=== PATIENT | female | born 1935 | race Caucasian/White ===

== ENCOUNTER → 2016-10-15 | Outpatient (CLI) | payer MEDICARE ==
[2016-10-15 11:59] LABS: Blood Urea Nitrogen 21 mg/dL (7-17); Non-African American GFR(MDRD) >60 (>60 ml/min/1.73 sqM)
--- NOTE | 2016-10-15 18:18 | CT ---
EXAMINATION TYPE: CT ChestAbdPelvis w con DATE OF EXAM: 10/15/2016 12:35 PM INDICATION: Lymphoma follow up COMPARISON: PET/CT 07/20/2016 CT DLP: 1004.9 mGycm CONTRAST: Performed with Oral Contrast and with IV Contrast, patient injected with 100 ml mL of Omnipaque 300. TECHNIQUE: Axial images at 5 mm thick sections. Reconstructed images in the coronal plane. Delayed images through the kidneys. FINDINGS: CT CHEST: There appears to be some left supraclavicular adenopathy present measuring 1.0 cm. Small ax illary lymph node is present on the left. No enlarged mediastinal or hilar adenopathy is evident. Portion of the thyroid visualized is normal. Small bilateral pleural effusions are present. Some streak opacities within the lingula. Correlate fo r atelectasis. The ascending aorta diameter at the level of the main pulmonary artery is 3.4 cm. The main pulmonary artery diameter at the bifurcation is 2.6 cm. Coronary artery calcification is present. CT ABDOMEN: No retrocrural adenopathy is evident. No periaortic or retrocaval adenopathy is evident. Mesenteric adenopathy is not evident. Liver: Normal Spleen: Normal Pancreas: There is fatty infiltration in the pancreas. Adrenal glands: The adrenal glands are normal. Gallbladder: Not visualized. Kidneys: No masses are evident. No hydronephrosis is present. Multiple cysts are present. This incl udes an superior pole left renal cyst measuring 6.1 cm, a posterior cortical renal cyst measuring 1.8 cm. An inferior pole renal cyst measuring 6.0 cm. Right kidney contains a mid right renal cortical c yst measuring 2.0 cm. A punctate medial cortical renal cysts at the same level. Delayed images were obtained through the kidneys, which remain unremarkable. Aorta: Vascular calcification is within the aorta. Inferior vena cava: Normal. CT PELVIS: Loops of bowel within the abdomen and pelvis are normal. There are loops of bowel which are incom pletely distended or lack oral contrast limiting their evaluation. Appendix: Not visualized Urinary bladder: Normal. Genitourinary structures: Uterus is not identified. Adnexal regions are clear. Osseous structures: No suspicious lytic or sclerotic lesions. No suspicious inguinal adenopathy is evident. No intrapelvic suspicious adenopathy is evident. IMPRESSIONS: 1. Lymph node in the left supraclavicular region could correspond to the PET/CT findings. 2. No suspicious mediastinal adenopathy by CT criteria is not identified. Inguinal adenopathy corresp ond to the PET findings is not identified. 3. Small bilateral pleural effusions. 4. Renal cysts
== END | disposition home or self-care (01) ==
LOC: RADPROMAIN 10:58
PROVIDERS: ATTEND Internal Medicine Hematology & Oncology
DX: C85.90 Non-Hodgkin lymphoma, unspecified, unspecified site (principal); J90 Pleural effusion, not elsewhere classified; N28.1 Cyst of kidney, acquired
CPT/HCPCS: 82565; 84520; 71260; 74177; Q9967

== ENCOUNTER 2016-11-04 12:59 | Inpatient (IN) | payer MEDICARE ==
[2016-11-04] MEDS ORDERED: ASPIRIN 81 MG CHEW PO STA (13:35)
[2016-11-04] MEDS ORDERED: SODIUM CHLORIDE 0.9% 1,000 ML IV STA ×2 (13:35)
[2016-11-04] MEDS ORDERED: DILTIAZEM 125 MG in SODIUM CHLORIDE 0.9% 100 ML IV ONE (13:36)
[2016-11-04] MEDS ORDERED: DILTIAZEM 5 MG/ML 5 ML VIAL IVP STA (13:36)
--- NOTE | 2016-11-04 13:37 | ED ---
General Adult HPI - General Chief complaint: Arrhythmia/Palpitations Stated complaint: irreg heart rate Time Seen by Provider: 11/04/16 13:07 Source: RN/MD, EMS, RN notes reviewed, old records reviewed Mode of arrival: EMS Limitations: no limitations - History of Present Illness Initial comments: This is an 79-year-old female ER for evaluation. This patient presents today for evaluation of weakness. Patient has significant weakness, related to recent chemotherapy and cancer. Patient does and is found to be in A. fib with RVR, she does have a history she is and a blood thinner, Nick which she has not taken for 2 days. Patient denies any blood in her stool, no nausea vomiting of blood. No chest pain, mild shortness of breath and generally feeling weak. No recent fevers per patient's knowledge, patient is a transfer patient from [place] - Related Data Home Medications Medication Instructions Recorded Confirmed Atorvastatin [Lipitor] 20 mg PO DAILY 04/21/16 09/30/16 Cholecalciferol [Vitamin D3] 2,000 unit PO DAILY 04/21/16 09/30/16 Quinapril HCl [Accupril] 20 mg PO QAM 04/21/16 09/30/16 Loratadine 10 mg PO DAILY PRN 09/30/16 09/30/16 Prochlorperazine [Compazine] 10 mg PO Q6H PRN 09/30/16 09/30/16 Previous Rx's Medication Instructions Recorded Edoxaban Tosylate [Savaysa] 30 mg PO DAILY #60 tablet 04/24/16 ALPRAZolam [Xanax] 0.25 mg PO TID PRN #0 tab 10/04/16 Amiodarone [Cordarone] 200 mg PO BID #60 tab 10/04/16 Aspirin 81 mg PO DAILY chew 10/04/16 Metoprolol Tartrate [Lopressor] 50 mg PO BID #60 tab 10/04/16 Allergies Allergy/AdvReac Type Severity Reaction Status Date / Time No Known Allergies Allergy Verified 11/04/16 13:12 Review of Systems ROS Statement: Those systems with pertinent positive or pertinent negative responses have been documented in the HPI. ROS Other: All systems not noted in ROS Statement are negative. Past Medical History Past Medical History: Atrial Fibrillation, Hyperlipidemia, Hypertension Additional Past Medical History / Comment(s): states"swollen parotid gland on left side of face", Lymphoma History of Any Multi-Drug Resistant Organisms: None Reported Past Surgical History: Cholecystectomy, Hysterectomy Additional Past Surgical History / Comment(s): lt cataract Past Anesthesia/Blood Transfusion Reactions: No Reported Reaction Past Psychological History: No Psychological Hx Reported Smoking Status: Never smoker Past Alcohol Use History: Occasional Additional Past Alcohol Use History / Comment(s): Patient is a lifelong nonsmoker. She denies any medical marijuana, marijuana, street drug use. She drinks alcohol a beer occasionally. She lives alone and is very independent. There are no pets in the home. She worked in [employer] and has been retired for many years. Past Drug Use History: None Reported - Past Family History Mother History Unknown: Yes Family Medical History: Cancer Father Family Medical History: Myocardial Infarction ([place]) General Exam Limitations: no limitations General appearance: alert, lethargic, in distress, cachectic Head exam: Present: atraumatic, normocephalic, normal inspection Eye exam: Present: normal appearance, PERRL, EOMI. Absent: scleral icterus, conjunctival injection, periorbital swelling ENT exam: Present: mucous membranes dry, mucous membranes moist Neck exam: Present: normal inspection. Absent: tenderness, meningismus, lymphadenopathy Respiratory exam: Present: normal lung sounds bilaterally. Absent: respiratory distress, wheezes, rales, rhonchi, stridor Cardiovascular Exam: Present: tachycardia, irregular rhythm, normal heart sounds. Absent: systolic murmur, diastolic murmur, rubs, gallop, clicks GI/Abdominal exam: Present: soft, normal bowel sounds. Absent: distended, tenderness, guarding, rebound, rigid Extremities exam: Present: normal inspection, full ROM, normal capillary refill. Absent: tenderness, pedal edema, joint swelling, calf tenderness Back exam: Present: normal inspection Neurological exam: Present: alert, oriented X3, CN II-XII intact Psychiatric exam: Present: normal affect, normal mood Skin exam: Present: warm, dry, intact, normal color. Absent: rash Course Vital Signs 11/04/16 13:12 Pulse Rate 127 H Respiratory 18 Rate O2 Sat by Pulse 98 Oximetry - Reevaluation(s) Reevaluation #1: 11/04/16 13:52 Patient was significant critical improvement with rate control of heart Reevaluation #2: 11/04/16 13:54 Spoke with transferring physician from [place], records updated EKG Findings - EKG Comments: EKG Findings:: EKG shows A. fib with RVR at 149 QRS 66, QTc 412 Medical Decision Making - Medical Decision Making 81 female to ER for evaluation of weakness, patient currently going through chemotherapy for lymphoma, patient found to be in A. fib with RVR with new anemia secondary to chemo, patient with pancytopenia, will be admitted for monitoring control of A. fib with RVR and evaluation by oncologist as well as cardiology. - Radiology Data Radiology results: report reviewed (Chest x-ray negative for pneumonia), image reviewed Critical Care Time Critical Care Time: Yes Total Critical Care Time: 31 Disposition Clinical Impression: Atrial flutter with rapid ventricular response, Weakness, Anemia, Diffuse large B-cell lymphoma, Pancytopenia Disposition: ADMITTED IP TO THIS HOSP Condition: Fair Referrals: Uriel Brizuela MD [Primary Care Provider] - 1-2 days
[2016-11-04] MEDS ORDERED: MORPHINE SULFATE 4 MG/ML SYRINGE IV PRN (13:48)
[2016-11-04] MEDS ORDERED: NITROGLYCERIN SL TABS 0.4 MG TAB SUBLINGUAL PRN (13:48)
[2016-11-04] MEDS: SODIUM CHLORIDE 0.9% 1,000 ML IV SCH (13:55)
[2016-11-04] MEDS ORDERED: PIPERACILLIN-TAZOBACTAM 3.375 GM in DEXTROSE/WATER 1 50ML.BAG IVPB STA (15:28)
[2016-11-04] MEDS ORDERED: IV VANCOMYCIN PER PHARMACY 1 EACH MISC MISCELLANE PRN (15:29)
[2016-11-04] MEDS ORDERED: ACETAMINOPHEN IV (For NPO) 1,000 MG in EMPTY BAG 1 BAG IVPB STA (15:29)
[2016-11-04] MEDS ORDERED: SODIUM CHLORIDE 0.9% 1,000 ML IV ONE (15:29)
[2016-11-04] MEDS ORDERED: SODIUM CHLORIDE 0.9% 500 ML IV ONE ×2 (15:29→18:02)
[2016-11-04] MEDS ORDERED: ACETAMINOPHEN TAB 325 MG TAB PO PRN (15:32)
[2016-11-04] MEDS ORDERED: IBUPROFEN 600 MG TAB PO PRN (15:32)
[2016-11-04] MEDS ORDERED: METOPROLOL TARTRATE 5 MG/5 ML VIAL IVP STA (15:44)
--- NOTE | 2016-11-04 15:44 | XR ---
EXAMINATION TYPE: XR chest 1V portable DATE OF EXAM: 11/04/2016 3:40 PM HISTORY: Shortness of breath. COMPARISON: 09/30/2016 TECHNIQUE: Single view of the chest is submitted. FINDINGS: The Mediport catheter is unchanged in position. Demonstrated are scattered senescent parenchymal change. There is no evidence for focal infiltrate. The heart is stable. Hilar and mediastinal structures are within normal limits. Degenerative changes are seen of the dorsal spine. IMPRESSION: 1. Chronic changes without evidence for acute pulmonary disease.
[2016-11-04] MEDS ORDERED: VANCOMYCIN 1,500 MG in SODIUM CHLORIDE 0.9% 250 ML IVPB SCH (16:00)
[2016-11-04 16:42] LABS: Anion Gap 8 mmol/L; Blood Urea Nitrogen 28 mg/dL (7-17); Calcium 7.9 mg/dL (8.4-10.2); Carbon Dioxide 26 mmol/L (22-30); Chloride 104 mmol/L (98-107); Glucose 160 mg/dL (74-99); Non-African American GFR(MDRD) >60 (>60 ml/min/1.73 sqM); Potassium 3.8 mmol/L (3.5-5.1); Sodium 138 mmol/L (137-145)
[2016-11-04 16:50] LABS: Creatine Kinase <20 U/L (30-135)
[2016-11-04] MEDS ORDERED: LISINOPRIL 20 MG TAB PO SCH (17:00)
[2016-11-04] MEDS ORDERED: AMIODARONE 200 MG TAB PO SCH (17:00)
[2016-11-04] MEDS ORDERED: EDOXABAN TOSYLATE 30 MG TABLET PO SCH (17:00)
[2016-11-04 17:03] LABS: Creatine Kinase MB <0.2 ng/mL (0.0-2.4)
[2016-11-04] MEDS ORDERED: ALPRAZolam 0.25 MG TAB PO PRN (17:05)
[2016-11-04 17:31] LABS: Bilirubin, Delta 0.5 mg/dL (0.0-0.2); Total Bilirubin 1.6 mg/dL (0.2-1.3); Total Protein 4.1 g/dL (6.3-8.2)
[2016-11-04 18:21] LABS: Anisocytosis Slight; CH 31.9; CHCM 32.6; HCT 20.9 % (34.0-46.0); HDW 3.08; MCH 32.3 pg (25.0-35.0); MCHC 32.7 g/dL (31.0-37.0); MCV 98.8 fL (80.0-100.0); Macrocytosis Moderate; RBC 2.12 m/uL (3.80-5.40); WBC (Perox) 0.16
[2016-11-04 18:24] LABS: HGB 6.8 gm/dL (11.4-16.0); WBC 0.1 k/uL (3.8-10.6)
[2016-11-04] MEDS ORDERED: DEXTROSE 5% IN WATER 100 ML with AMIODARONE 150 MG IV ONE (18:30)
[2016-11-04 18:43] LABS: Add Differential Manual Differential
--- NOTE | 2016-11-04 20:11 | P.CONS ---
History of Present Illness - Reason for Consult Consult date: 11/04/16 Requesting physician: Hector Mills - Chief Complaint severe weakness - History of Present Illness Mrs. Monsivais is a very pleasant 81-year-old female patient of Dr. Montana who was admitted to [facility] in April 2016 for a painful lump in her left cheek area. This is been present for about 3-4 months and look fluctuating size. It ended up progressing in size and becoming more painful so the patient had an ultrasound, revealing a solid lesion involving the posterior aspect of the parotid gland on the left as well as multiple other smaller solid lesions. FNA was nondiagnostic for malignancy, she was treated with antibiotics with improvement in symptoms. Patient had a follow-up with ENT with excisional biopsy on 06/03/2016, pathology positive for diffuse large B-cell non-Hodgkin's lymphoma, "triple hit" status. PET scan showed widespread uptake. Baseline echo prior to chemotherapy revealed a normal left ventricular ejection fraction. [facility] has been collaborating with Dr. Montana regarding the patient's case. Patient was initiated on R CHOP in August and had 2 cycles. She was being seen for a follow-up appointment after cycle 2 in September when she was found to have resting tachycardia, EKG was performed revealing atrial flutter, she was hospitalized, evaluated by cardiology and medically treated. Patient states that she was seen by cardiology last week and found to have a normal EKG , sinus rhythm. Due to cardiac complications patient's chemotherapy regimen was altered and patient was changed to R CEOP. Patient had her first cycle last week with Neulasta given on October 31. Patient states that she woke up this morning feeling extremely weak. She was unable to even care for herself, unable to stand. When seen the patient is in Trendelenburg position, patient is tachycardic, hypotensive, alert and oriented and able to carry on a conversation, denied any severe physical symptoms, no palpitations, chest pain or shortness of breath. Patient denied fevers at home, but she did have a fever on admission, no oral irritation, nausea or vomiting, she was tolerating oral intake without indigestion or heartburn, denies abdominal bloating, pain or cramping, dysuria, hematuria, diarrhea or constipation. She is experiencing swelling in her legs, she is not in any pain at this time. CBC was done stat revealing severe pancytopenia with a hemoglobin of 6.8, platelet count of 11,000 , and a white count of 0.1. Patient did have a fever on admission. Pancultures have been ordered, empiric antibiotics initiated, patient is being monitored very closely at this time. Review of Systems All systems: negative Constitutional: Reports as per HPI Past Medical History Past Medical History: Atrial Fibrillation, Hyperlipidemia, Hypertension Additional Past Medical History / Comment(s): LT PAROTID RUMOR, Lymphoma. PT STATED HAD CHEMO 10-28-16, PT STATED HAD BEEN ON A DIRUTETIC AND LOST 19#, APPETITE DOWN A BIT NOT SURE IF ALL WT LOST WAS FLUID WT. PT STATED HAD 2 EPISODE OF DIARRHEA DAY OF ADMIT. History of Any Multi-Drug Resistant Organisms: None Reported Past Surgical History: Appendectomy, Cholecystectomy, Hysterectomy Additional Past Surgical History / Comment(s): lt cataract, LT PAROTIS TUMOR REMOVED, RT UPPER CHEST PORT. Past Anesthesia/Blood Transfusion Reactions: No Reported Reaction Past Psychological History: No Psychological Hx Reported Smoking Status: Never smoker Past Alcohol Use History: Occasional Additional Past Alcohol Use History / Comment(s): Patient is a lifelong nonsmoker. She denies any medical marijuana, marijuana, street drug use. She drinks alcohol a beer occasionally. She lives alone and is very independent. There are no pets in the home. She worked in [employer] for [employer] and has been retired for many years. Past Drug Use History: None Reported - Past Family History Mother History Unknown: Yes Family Medical History: Cancer Father Family Medical History: Myocardial Infarction ([place]) Medications and Allergies Home Medications Medication Instructions Recorded Confirmed Type Atorvastatin [Lipitor] 20 mg PO DAILY 04/21/16 11/04/16 History Quinapril HCl [Accupril] 20 mg PO QAM 04/21/16 11/04/16 History Amiodarone [Cordarone] 200 mg PO DAILY 11/04/16 11/04/16 History Furosemide [Lasix] 40 mg PO DAILY 11/04/16 11/04/16 History Potassium Chloride [Klor-Con 10] 10 meq PO DAILY 11/04/16 11/04/16 History Allergies Allergy/AdvReac Type Severity Reaction Status Date / Time No Known Allergies Allergy Verified 11/04/16 14:07 Physical Exam Vitals: Vital Signs Temp Pulse Pulse Resp BP BP Pulse Ox 11/04/16 19:08 98.8 F 137 H 16 85/50 99 11/04/16 19:04 137 H 85/50 11/04/16 18:50 136 H 98/49 11/04/16 18:47 132 H 90/57 11/04/16 18:43 121 H 81/44 11/04/16 18:29 98.3 F 137 H 75/43 11/04/16 18:23 136 H 70/44 11/04/16 18:15 72/39 11/04/16 18:11 121 H 70/41 11/04/16 17:49 98.8 F 132 H 16 77/47 99 11/04/16 15:30 102.1 F H 142 H 20 136/62 100 11/04/16 15:05 101.6 F H 156 H 18 123/57 97 11/04/16 14:29 158 H 18 123/57 100 Intake and Output 11/04/16 11/04/16 11/04/16 06:59 14:59 22:59 Intake Total 2235.75 Balance 2235.75 Intake: IV 2100 ACETAMINOPHEN IV (For NPO 100 ) 1,000 mg In Empty Bag 1 bag @ 400 mls/hr IVPB ONCE STA Rx#:[id number] Sodium Chloride 0.9% 1, 1000 000 ml @ 999 mls/hr IV . Q1H1M ONE Rx#:[id number] Sodium Chloride 0.9% 1, 500 000 ml @ 999 mls/hr IV . Q1H1M STA Rx#:[id number] Sodium Chloride 0.9% 500 500 ml @ 999 mls/hr IV .Q31M ONE Rx#:[id number] Intake, IV Titration 35.75 Amount Diltiazem 125 mg In 35.75 Sodium Chloride 0.9% 100 ml @ 5 MG/HR 5 mls/hr IV .Q24H ONE Rx#:[id number] Oral 100 - Constitutional General appearance: average body habitus, cooperative, no acute distress - EENT Eyes: anicteric sclerae ENT: normal oropharynx - Neck Neck: no lymphadenopathy - Respiratory Respiratory: bilateral: CTA - Cardiovascular Irregular rhythm, tachycardia Heart sounds: normal: S1, S2 Abnormal Heart Sounds: no systolic murmur, no diastolic murmur, no rub, no S3 Gallop, no S4 Gallop, no click, no other - Gastrointestinal General gastrointestinal: no absent bowel sounds, no decreased bowel sounds, no distended, no hepatomegaly, no hyperactive bowel sounds, normal bowel sounds, no organomegaly, no rigid, no scaphoid, soft, no splenomegaly, no tenderness, no umbilical hernia, no ventral hernia - Integumentary Integumentary: pale - Neurologic Neurologic: CNII-XII intact - Musculoskeletal Musculoskeletal: generalized weakness - Psychiatric Psychiatric: A&O x's 3, appropriate affect, intact judgment & insight Results CBC & Chem 7: 11/04/16 15:59 11/04/16 15:59 Labs: Abnormal Lab Results - Last 24 Hours (Table) 11/04/16 11/04/16 11/04/16 Range/Units 15:59 15:59 15:59 WBC (3.8-10.6) k/uL RBC (3.80-5.40) m/uL Hgb (11.4-16.0) gm/dL Hct (34.0-46.0) % RDW (11.5-15.5) % Plt Count (150-450) k/uL BUN 28 H (7-17) mg/dL Glucose 160 H (74-99) mg/dL Calcium 7.9 L (8.4-10.2) mg/dL Total Bilirubin 1.6 H (0.2-1.3) mg/dL Delta Bilirubin 0.5 H (0.0-0.2) mg/dL ALT 53 H (9-52) U/L Total Creatine Kinase <20 L (30-135) U/L Total Protein 4.1 L (6.3-8.2) g/dL Albumin 2.2 L (3.5-5.0) g/dL 11/04/16 Range/Units 15:59 WBC 0.1 L* (3.8-10.6) k/uL RBC 2.12 L (3.80-5.40) m/uL Hgb 6.8 L* D (11.4-16.0) gm/dL Hct 20.9 L (34.0-46.0) % RDW 19.0 H (11.5-15.5) % Plt Count 11 L* D (150-450) k/uL BUN (7-17) mg/dL Glucose (74-99) mg/dL Calcium (8.4-10.2) mg/dL Total Bilirubin (0.2-1.3) mg/dL Delta Bilirubin (0.0-0.2) mg/dL ALT (9-52) U/L Total Creatine Kinase (30-135) U/L Total Protein (6.3-8.2) g/dL Albumin (3.5-5.0) g/dL Chest x-ray: report reviewed Assessment and Plan (1) Pancytopenia Narrative/Plan: CBC was ordered stat, severe pancytopenia secondary to chemotherapy. Patient is being provided with 1 unit of packed red blood cells, 1 unit of platelets. No aspirin, anticoagulants or NSAIDs. Growth factors are not indicated at this time as patient had Neulasta on the . Labs in the a.m. Status: Acute (2) Diffuse large B-cell lymphoma Narrative/Plan: After patient's hospitalization in September for atrial flutter chemotherapy regimen R CHOP was changed R-CEOP, patient has 1st cycle of R-CEOP with Neulasta days 1, 2 and 3 last week. Status: Chronic (3) Febrile neutropenia Narrative/Plan: Chest x-ray performed, report states no acute process. Blood cultures and urinary analysis and culture are pending at this time. Patient is on empiric antibiotics. As stated patient received Neulasta on the , growth factor support is not indicated at this time. Status: Acute
[2016-11-04] MEDS ORDERED: METOPROLOL TARTRATE 50 MG TAB PO SCH (21:00)
[2016-11-04] MEDS ORDERED: HEPARIN SODIUM,PORCINE 5,000 UNIT/ML 1 ML VIAL SQ SCH (21:00)
[2016-11-04] MEDS: VANCOMYCIN 1,500 MG in SODIUM CHLORIDE 0.9% 250 ML IVPB SCH (23:03)
[2016-11-04 23:13] LABS: Creatine Kinase <20 U/L (30-135)
--- NOTE | 2016-11-04 23:23 | HP ---
DATE OF ADMISSION: CHIEF COMPLAINT: Weakness. HISTORY OF PRESENT ILLNESS: This 81-year-old woman with a past medical history of multiple medical problems, including lymphoma, history of atrial fibrillation, history of hypertension, hyperlipidemia, history left parotid tumor, history of appendectomy, cholecystectomy, hysterectomy, being followed by Dr. Brizuela in the outpatient setting, apparently chemotherapy last week. The patient was complaining of weakness. Patient also was running some fever. Because of the tiredness and weakness, the patient went to [facility] and subsequently was referred to [facility] and admitted for further evaluation and treatment. The patient was found to have atrial fibrillation with a fast ventricular rate. Cardizem at 10 mg/hour is being started. The patient is being closely monitored. There is no history of headache, loss of consciousness, seizures. No history of chest pain or palpitation. PAST MEDICAL HISTORY: 1. History of lymphoma, on chemotherapy. 2. History of atrial fibrillation. 3. Hypertension. 4. Hyperlipidemia. 5. History of left parotid tumor. 6. History of appendectomy. 7. Cholecystectomy. 8. History of hysterectomy. MEDICATIONS PRIOR TO ADMISSION: 1. Lipitor 20 mg p.o. daily. 2. Klor-Con 10 mEq p.o. daily. 3. Accupril 20 mg each morning. 4. Lopressor 50 mg b.i.d. 5. Lasix 40 mg daily. 6. Savaysa 30 mg p.o. daily. 7. Aspirin 81 mg daily. 8. Cordarone 200 mg daily. ALLERGIES: NONE. FAMILY HISTORY: History of cancer in the family. SOCIAL HISTORY: No history of smoking. Occasional alcohol intake. REVIEW OF SYSTEMS: ENT: No diminished hearing. No diminished vision. CARDIOVASCULAR: As mentioned earlier. RESPIRATORY SYSTEM: As mentioned earlier. GI: No nausea. : No dysuria. NERVOUS SYSTEM: No numbness. Generalized weakness. ALLERGY/IMMUNOLOGY: No asthma or hayfever. MUSCULOSKELETAL: As mentioned earlier. HEMATOLOGY/ONCOLOGY: As mentioned earlier. ENDOCRINE: No history of diabetes, hypothyroidism. CONSTITUTIONAL: As mentioned earlier. DERMATOLOGY: Negative. RHEUMATOLOGY: Negative. PSYCHIATRY: As mentioned earlier. PHYSICAL EXAMINATION: Patient is alert and oriented x3. Pulse is 156, blood pressure 123/57, respiration 18, temperature 101.6, pulse ox 97% on 2 L. HEENT: Conjunctivae pale. Oral mucosa moist. NECK: No jugular venous distention. No carotid bruit. No lymph node enlargement. Parotid enlargement present. CARDIOVASCULAR SYSTEM: S1, S2 normal. Tachycardic. No S3. No S4. No murmur. No thrills. RESPIRATORY SYSTEM: Breath sounds diminished at the bases. A few scattered rhonchi and crackles. ABDOMEN: Soft, nontender. No mass palpable. No hepatosplenomegaly. LEGS: Minimal bilateral leg edema. NERVOUS SYSTEM: Higher functions as mentioned earlier. Moves all 4 limbs. No focal motor or sensory deficit. LYMPHATICS: No lymph node palpable in neck, axillae or groin. SKIN: No ulcer, rash, bleeding. LABS: Calcium is 7.9. Influenza negative. ASSESSMENT: 1. Atrial fibrillation with a fast ventricular rate. 2. Fever, weakness for evaluation; possibly sepsis post chemotherapy. 3. History of lymphoma, on chemotherapy. 4. Hypertension. 5. Hyperlipidemia. 6. History of atrial fibrillation. 7. History of left parotid tumor. 8. History of appendectomy. 9. History of cholecystectomy. 10. History of cataract. 11. History of atrial flutter. 12. Gait dysfunction. 13. FULL CODE. RECOMMENDATIONS AND DISCUSSION: In this 81-year-old woman who presented with multiple complex medical issues, we will monitor the patient closely, continue the current medications, continue with symptomatic treatment. Will initiate Cardizem and amiodarone per Cardiology. Broad-spectrum IV antibiotics also have been initiated. Zosyn and vancomycin have been initiated. Will obtain blood cultures and continue to monitor. Prognosis guarded because of multiple complex medical issues. Resume the home medications. Medication reconciliation has been done. Symptomatic treatment will also be provided. Discussed with the patient, who understands and agrees. Further recommendations to follow. A copy of this dictation is being forwarded to Dr. Brizuela, who is the primary physician. [facility]. [facility] HOSPITALRuth
[2016-11-04 23:26] LABS: Creatine Kinase MB <0.2 ng/mL (0.0-2.4)
[2016-11-04 23:29] LABS: Troponin I 0.051 ng/mL (0.000-0.034)
[2016-11-05 04:07] LABS: Appearance,Urine Clear (Clear); Bacteria,Urine Many /hpf; Bilirubin,Urine Negative (Negative); Glucose,Urine (UA) Negative (Negative); Ketones,Urine Negative (Negative); Leukocyte Esterase,Urine Negative (Negative); Nitrite,Urine Positive (Negative); PH, Urine 5.5 (5.0-8.0); Particle Count 7864; Protein,Urine Negative (Negative); RBC,Urine 1 /hpf (0-5); Specific Gravity,Urine 1.018 (1.001-1.035); Squamous Epithelial Cell,Urine 2 /hpf (0-4); UA Billing (MACRO vs. MICRO) MICRO; Urobilinogen,Urine <2.0 mg/dL (<2.0); WBC,Urine 3 /hpf (0-5)
[2016-11-05] MEDS: SODIUM CHLORIDE 0.9% 1,000 ML IV SCH ×2 (05:45→08:28)
[2016-11-05 06:30] LABS: Anisocytosis Slight; Aty Lym Flag Marked; CH 31.9; CHCM 33.4; HCT 25.5 % (34.0-46.0); HDW 3.12; MCH 31.9 pg (25.0-35.0); MCHC 33.2 g/dL (31.0-37.0); MCV 96.2 fL (80.0-100.0); Macrocytosis Slight; Mean Platelet Volume 9.8; RBC 2.65 m/uL (3.80-5.40); WBC (Perox) 0.16
[2016-11-05 06:40] LABS: Anion Gap 6 mmol/L; Blood Urea Nitrogen 25 mg/dL (7-17); Calcium 7.3 mg/dL (8.4-10.2); Carbon Dioxide 26 mmol/L (22-30); Chloride 107 mmol/L (98-107); Cholesterol <50 mg/dL (<200); Glucose 161 mg/dL (74-99); HDL Cholesterol 33 mg/dL (40-60); HGB 8.5 gm/dL (11.4-16.0); Non-African American GFR(MDRD) 59 (>60 ml/min/1.73 sqM); Potassium 3.2 mmol/L (3.5-5.1); Sodium 139 mmol/L (137-145); Triglycerides 45 mg/dL (<150); WBC 0.2 k/uL (3.8-10.6)
[2016-11-05 07:10] LABS: Add Differential Manual Differential
[2016-11-05 07:11] LABS: Manual Review Performed
[2016-11-05] MEDS: MELATONIN 3 MG TABLET PO SCH (07:32)
[2016-11-05] MEDS: FUROSEMIDE 40 MG TAB PO SCH ×2 (07:32→08:30)
[2016-11-05] MEDS: PIPERACILLIN-TAZOBACTAM 3.375 GM in DEXTROSE/WATER 1 50ML.BAG IVPB SCH ×3 (07:33→16:15)
[2016-11-05] MEDS: AMIODARONE 450 MG in DEXTROSE 5% IN WATER 250 ML IV SCH ×6 (07:36→16:34)
[2016-11-05] MEDS: POTASSIUM CHLORIDE ER 10 MEQ TAB.ER.PRT PO SCH (08:30)
[2016-11-05] MEDS: ATORVASTATIN 20 MG TAB PO SCH (08:30)
[2016-11-05] MEDS ORDERED: ASPIRIN 81 MG CHEW PO SCH (09:00)
[2016-11-05] MEDS ORDERED: ASPIRIN 325 MG TAB PO SCH (09:00)
--- NOTE | 2016-11-05 09:07 | P.CRDCN ---
<Trish Berg E - Last Filed: 11/05/16 09:07> History of Present Illness Consult date: 11/05/16 Requesting physician: Bettye Iglesias Consult reason: atrial fibrillation Chief complaint: Weakness History of present illness: This is an 81-year-old female with known history of hypertension, hyperlipidemia, lymphoma currently undergoing chemotherapy, paroxysmal atrial fibrillation, on Savaysa, although this was by Dr. [place], she presented to the hospital with symptoms of significant weakness. She denies any palpitations, mild shortness of breath. On admission, patient was found to be in atrial fibrillation with a rapid ventricular response, and was then transferred here from [facility]. At the time of my examination today, continues to be in atrial fibrillation with a heart rate of 130. Initiated last evening on IV amiodarone. Blood pressure last evening around 7:00 was 85/50, this morning' s blood pressure 118/68 with a heart rate of 130. Patient is running low-grade temperatures 99.8. At the time of examination this morning, patient continues to feel weak, denies palpitations, breathing is stable. Chest x-ray on admission revealed chronic changes without evidence for any acute cardiopulmonary disease. Laboratory data was reviewed, wbc's 0.1, hemoglobin 6.8, platelet count 11 on admission, WBC 0.2, hemoglobin 8.5, platelet count 8 this morning.K+3.2. BUN 25, creatinine 0.9. Troponins .030, .051. Past Medical History Past Medical History: Atrial Fibrillation, Hyperlipidemia, Hypertension Additional Past Medical History / Comment(s): LT PAROTID RUMOR, Lymphoma. PT STATED HAD CHEMO 10-28-16, PT STATED HAD BEEN ON A DIRUTETIC AND LOST 19#, APPETITE DOWN A BIT NOT SURE IF ALL WT LOST WAS FLUID WT. PT STATED HAD 2 EPISODE OF DIARRHEA DAY OF ADMIT. History of Any Multi-Drug Resistant Organisms: None Reported Past Surgical History: Appendectomy, Cholecystectomy, Hysterectomy Additional Past Surgical History / Comment(s): lt cataract, LT PAROTIS TUMOR REMOVED, RT UPPER CHEST PORT. Past Anesthesia/Blood Transfusion Reactions: No Reported Reaction Past Psychological History: No Psychological Hx Reported Smoking Status: Never smoker Past Alcohol Use History: Occasional Additional Past Alcohol Use History / Comment(s): Patient is a lifelong nonsmoker. She denies any medical marijuana, marijuana, street drug use. She drinks alcohol a beer occasionally. She lives alone and is very independent. There are no pets in the home. She worked in [employer] and has been retired for many years. Past Drug Use History: None Reported - Past Family History Mother History Unknown: Yes Family Medical History: Cancer Father Family Medical History: Myocardial Infarction ([place]) Medications and Allergies Home Medications Medication Instructions Recorded Confirmed Type Atorvastatin [Lipitor] 20 mg PO DAILY 04/21/16 11/04/16 History Quinapril HCl [Accupril] 20 mg PO QAM 04/21/16 11/04/16 History Amiodarone [Cordarone] 200 mg PO DAILY 11/04/16 11/04/16 History Furosemide [Lasix] 40 mg PO DAILY 11/04/16 11/04/16 History Potassium Chloride [Klor-Con 10] 10 meq PO DAILY 11/04/16 11/04/16 History Allergies Allergy/AdvReac Type Severity Reaction Status Date / Time No Known Allergies Allergy Verified 11/04/16 14:07 Physical Exam Vitals: Vital Signs Temp Pulse Pulse Resp BP BP Pulse Ox 11/05/16 08:17 98.8 F 131 H 18 118/68 11/05/16 08:16 98.8 F 131 H 18 118/68 11/05/16 06:42 99.8 F H 130 H 16 119/62 11/05/16 06:30 99.2 F 138 H 16 119/66 99 11/05/16 04:52 111/66 11/05/16 04:46 99.7 F H 137 H 18 99 11/05/16 04:00 98.9 F 135 H 16 109/60 98 11/05/16 02:14 99.5 F 135 H 18 106/59 11/05/16 01:59 99.5 F 139 H 16 111/59 100 11/05/16 00:00 99.5 F 136 H 16 121/72 11/04/16 22:59 99.3 F 152 H 20 117/56 100 11/04/16 22:49 101.4 F H 146 H 18 112/63 11/04/16 20:00 98.7 F 144 H 18 101/60 100 11/04/16 19:08 98.8 F 137 H 16 85/50 99 11/04/16 19:04 137 H 85/50 01/23/17 18:50 136 H 98/49 11/04/16 18:47 132 H 90/57 11/04/16 18:43 121 H 81/44 11/04/16 18:29 98.3 F 137 H 75/43 11/04/16 18:23 136 H 70/44 11/04/16 18:15 72/39 11/04/16 18:11 121 H 70/41 11/04/16 17:49 98.8 F 132 H 16 77/47 99 11/04/16 15:30 102.1 F H 142 H 20 136/62 100 11/04/16 15:05 101.6 F H 156 H 18 123/57 97 11/04/16 14:29 158 H 18 123/57 100 Intake and Output 11/04/16 11/05/16 11/05/16 22:59 06:59 14:59 Intake Total 2235.75 620 201 Output Total 600 Balance 2235.75 20 201 Intake: IV 2100 ACETAMINOPHEN IV (For NPO 100 ) 1,000 mg In Empty Bag 1 bag @ 400 mls/hr IVPB ONCE STA Rx#:[id number] Sodium Chloride 0.9% 1, 1000 000 ml @ 999 mls/hr IV . Q1H1M ONE Rx#:[id number] Sodium Chloride 0.9% 1, 500 000 ml @ 999 mls/hr IV . Q1H1M STA Rx#:[id number] Sodium Chloride 0.9% 500 500 ml @ 999 mls/hr IV .Q31M ONE Rx#:[id number] Intake, IV Titration 35.75 Amount Diltiazem 125 mg In 35.75 Sodium Chloride 0.9% 100 ml @ 5 MG/HR 5 mls/hr IV .Q24H ONE Rx#:[id number] Oral 100 Blood Product 0 620 201 Platelet Pheresis Acda1 0 201 Unit [id number] Rc As-1 Unit 310 [id number] Rc As-1 Unit 0 310 [id number] Output: Urine 150 Stool 450 Other: Voiding Method Bedpan Bedpan Bedpan Weight 82 kg PHYSICAL EXAMINATION: HEENT: Head is atraumatic, normocephalic. Pupils equal, round. Neck is supple. There is no elevated jugular venous pressure. HEART EXAMINATION: Heart S1 and S2 irregular irregular CHEST EXAMINATION: Lungs are clear to auscultation and precussion. No chest wall tenderness is noted on palpation or with deep breathing. PICC line in place at right upper chest ABDOMEN: Soft, nontender. Bowel sounds are heard. No organomegaly noted. EXTREMITIES: 2+ peripheral pulses with no evidence of peripheral edema and no calf tenderness noted. NEUROLOGIC patient is awake, alert and oriented -3. . Results 11/05/16 05:43 11/05/16 05:43 Cardiac Enzymes 11/04/16 11/04/16 11/04/16 Range/Units 15:59 15:59 22:40 AST 14 (14-36) U/L CK-MB (CK-2) <0.2 <0.2 (0.0-2.4) ng/mL Troponin I 0.030 0.051 H* (0.000-0.034) ng/mL Lipids 11/05/16 Range/Units 05:43 Triglycerides 45 (<150) mg/dL Cholesterol <50 (<200) mg/dL HDL Cholesterol 33 L (40-60) mg/dL CBC 11/04/16 11/05/16 Range/Units 15:59 05:43 WBC 0.1 L* 0.2 L* (3.8-10.6) k/uL RBC 2.12 L 2.65 L (3.80-5.40) m/uL Hgb 6.8 L* D 8.5 L D (11.4-16.0) gm/dL Hct 20.9 L 25.5 L (34.0-46.0) % Plt Count 11 L* D 8 L* (150-450) k/uL Comprehensive Metabolic Panel 11/04/16 11/04/16 11/05/16 Range/Units 15:59 15:59 05:43 Sodium 138 139 (137-145) mmol/L Potassium 3.8 3.2 L (3.5-5.1) mmol/L Chloride 104 107 (98-107) mmol/L Carbon Dioxide 26 26 (22-30) mmol/L BUN 28 H 25 H (7-17) mg/dL Creatinine 0.86 0.91 (0.52-1.04) mg/dL Glucose 160 H 161 H (74-99) mg/dL Calcium 7.9 L 7.3 L (8.4-10.2) mg/dL Unconjugated Bilirubin 1.1 (0.0-1.1) mg/dL AST 14 (14-36) U/L ALT 53 H (9-52) U/L Alkaline Phosphatase 61 (38-126) U/L Total Protein 4.1 L (6.3-8.2) g/dL Albumin 2.2 L (3.5-5.0) g/dL Current Medications Generic Name Dose Route Start Last Admin Trade Name Freq PRN Reason Stop Dose Admin Acetaminophen 650 mg 11/04/16 15:32 Tylenol Tab PO Q6HR PRN Fever and/ or Pain Acetaminophen/Hydrocodone Bitart 1 each 11/04/16 17:05 Cloudcroft 5-325 PO Q6HR PRN Pain Alprazolam 0.25 mg 11/04/16 17:05 Xanax PO TID PRN Anxiety Atorvastatin Calcium 20 mg 11/05/16 09:00 11/05/16 08:30 Lipitor PO 20 mg DAILY JOHANNY Administration Furosemide 40 mg 11/04/16 17:00 11/05/16 08:30 Lasix PO 40 mg DAILY JOHANNY Administration Sodium Chloride 1,000 mls @ 100 mls/hr 11/04/16 14:00 11/05/16 08:28 Saline 0.9% IV 100 mls/hr .Q10H JOHANNY Administration Piperacillin/Tazobactam/ 50 mls @ 12.5 mls/hr 11/05/16 00:00 11/05/16 08:30 Dextrose 3.375 gm/ IV Solution IVPB 12.5 mls/hr Q8HR JOHANNY Administration Vancomycin HCl 1,500 mg/ 250 mls @ 125 mls/hr 11/04/16 20:00 11/04/16 23:03 Sodium Chloride IVPB 125 mls/hr Q16H JOHANNY Administration Amiodarone HCl 450 mg/ 259 mls @ 34.53 mls/hr 11/04/16 18:45 11/05/16 08:24 Dextrose/Water IV 11/05/16 18:46 0.5 mg/min .Q7H31M JOHANNY 17.26 mls/hr Protocol Administration 1 MG/MIN Melatonin 3 mg 11/04/16 21:00 11/05/16 07:32 Melatonin PO Not Given HS JOHANNY Morphine Sulfate 4 mg 11/04/16 13:48 Morphine Sulfate (Inj) IV Q4HR PRN Chest Pain Multivitamins 1 each 11/05/16 12:00 Theragran PO DAILY@1200 JOHANNY Nitroglycerin 0.4 mg 11/04/16 13:48 Nitrostat SUBLINGUAL Q5M PRN Chest Pain Potassium Chloride 10 meq 11/05/16 09:00 11/05/16 08:30 K-Dur 10 PO 10 meq DAILY JOHANNY Administration Intake and Output 11/04/16 11/05/16 11/05/16 22:59 06:59 14:59 Intake Total 2235.75 620 201 Output Total 600 Balance 2235.75 20 201 Intake: IV 2100 ACETAMINOPHEN IV (For NPO 100 ) 1,000 mg In Empty Bag 1 bag @ 400 mls/hr IVPB ONCE STA Rx#:[id number] Sodium Chloride 0.9% 1, 1000 000 ml @ 999 mls/hr IV . Q1H1M ONE Rx#:[id number] Sodium Chloride 0.9% 1, 500 000 ml @ 999 mls/hr IV . Q1H1M STA Rx#:[id number] Sodium Chloride 0.9% 500 500 ml @ 999 mls/hr IV .Q31M ONE Rx#:[id number] Intake, IV Titration 35.75 Amount Diltiazem 125 mg In 35.75 Sodium Chloride 0.9% 100 ml @ 5 MG/HR 5 mls/hr IV .Q24H ONE Rx#:[id number] Oral 100 Blood Product 0 620 201 Platelet Pheresis Acda1 0 201 Unit [id number] Rc As-1 Unit 310 [id number] Rc As-1 Unit 0 310 [id number] Output: Urine 150 Stool 450 Other: Voiding Method Bedpan Bedpan Bedpan Weight 82 kg 11/05/16 05:43 11/05/16 05:43 EKG Interpretations (text) EKG shows atrial fibrillation with a rapid ventricular response Assessment and Plan Plan: Assessment and Plan #1 atrial fibrillation with rapid ventricular response #2 history of paroxysmal atrial fibrillation #3 febrile neutropenia , weakness, possible sepsis. #4 diffuse large B cell lymphoma, on chemotherapy # 5 hypertension #6 hyperlipidemia #7 pancytopenia Plan Most recent echocardiogram with Doppler study was performed in September which revealed an ejection fraction of 55-60%. Continue IV amiodarone, put the patient on a Cardizem drip at 5 mg per hour. We will check a free T4 and a TSH level. As mentioned previously, patient's Savaysa has been placed on hold by oncology. Further recommendations to follow. DNP note has been reviewed, I agree with a documented findings and plan of care. Patient was seen and examined. <BreannaBello - Last Filed: 11/05/16 09:28> Physical Exam Vitals: Vital Signs Temp Pulse Pulse Resp BP BP Pulse Ox 11/05/16 08:17 98.8 F 131 H 18 118/68 11/05/16 08:16 98.8 F 131 H 18 118/68 11/05/16 06:42 99.8 F H 130 H 16 119/62 11/05/16 06:30 99.2 F 138 H 16 119/66 99 11/05/16 04:52 111/66 11/05/16 04:46 99.7 F H 137 H 18 99 11/05/16 04:00 98.9 F 135 H 16 109/60 98 11/05/16 02:14 99.5 F 135 H 18 106/59 11/05/16 01:59 99.5 F 139 H 16 111/59 100 11/05/16 00:00 99.5 F 136 H 16 121/72 11/04/16 22:59 99.3 F 152 H 20 117/56 100 11/04/16 22:49 101.4 F H 146 H 18 112/63 11/04/16 20:00 98.7 F 144 H 18 101/60 100 11/04/16 19:08 98.8 F 137 H 16 85/50 99 11/04/16 19:04 137 H 85/50 11/04/16 18:50 136 H 98/49 11/04/16 18:47 132 H 90/57 11/04/16 18:43 121 H 81/44 11/04/16 18:29 98.3 F 137 H 75/43 11/04/16 18:23 136 H 70/44 11/04/16 18:15 72/39 11/04/16 18:11 121 H 70/41 11/04/16 17:49 98.8 F 132 H 16 77/47 99 11/04/16 15:30 102.1 F H 142 H 20 136/62 100 11/04/16 15:05 101.6 F H 156 H 18 123/57 97 11/04/16 14:29 158 H 18 123/57 100 Intake and Output 11/04/16 11/05/16 11/05/16 22:59 06:59 14:59 Intake Total 2235.75 620 201 Output Total 600 Balance 2235.75 20 201 Intake: IV 2100 ACETAMINOPHEN IV (For NPO 100 ) 1,000 mg In Empty Bag 1 bag @ 400 mls/hr IVPB ONCE STA Rx#:[id number] Sodium Chloride 0.9% 1, 1000 000 ml @ 999 mls/hr IV . Q1H1M ONE Rx#:[id number] Sodium Chloride 0.9% 1, 500 000 ml @ 999 mls/hr IV . Q1H1M STA Rx#:[id number] Sodium Chloride 0.9% 500 500 ml @ 999 mls/hr IV .Q31M ONE Rx#:[id number] Intake, IV Titration 35.75 Amount Diltiazem 125 mg In 35.75 Sodium Chloride 0.9% 100 ml @ 5 MG/HR 5 mls/hr IV .Q24H ONE Rx#:[id number] Oral 100 Blood Product 0 620 201 Platelet Pheresis Acda1 0 201 Unit [id number] Rc As-1 Unit 310 [id number] Rc As-1 Unit 0 310 [id number] Output: Urine 150 Stool 450 Other: Voiding Method Bedpan Bedpan Bedpan Weight 82 kg Results 11/05/16 05:43 11/05/16 05:43 Cardiac Enzymes 11/04/16 11/04/16 11/04/16 Range/Units 15:59 15:59 22:40 AST 14 (14-36) U/L CK-MB (CK-2) <0.2 <0.2 (0.0-2.4) ng/mL Troponin I 0.030 0.051 H* (0.000-0.034) ng/mL Lipids 11/05/16 Range/Units 05:43 Triglycerides 45 (<150) mg/dL Cholesterol <50 (<200) mg/dL HDL Cholesterol 33 L (40-60) mg/dL CBC 11/04/16 11/05/16 Range/Units 15:59 05:43 WBC 0.1 L* 0.2 L* (3.8-10.6) k/uL RBC 2.12 L 2.65 L (3.80-5.40) m/uL Hgb 6.8 L* D 8.5 L D (11.4-16.0) gm/dL Hct 20.9 L 25.5 L (34.0-46.0) % Plt Count 11 L* D 8 L* (150-450) k/uL Comprehensive Metabolic Panel 11/04/16 11/04/16 11/05/16 Range/Units 15:59 15:59 05:43 Sodium 138 139 (137-145) mmol/L Potassium 3.8 3.2 L (3.5-5.1) mmol/L Chloride 104 107 (98-107) mmol/L Carbon Dioxide 26 26 (22-30) mmol/L BUN 28 H 25 H (7-17) mg/dL Creatinine 0.86 0.91 (0.52-1.04) mg/dL Glucose 160 H 161 H (74-99) mg/dL Calcium 7.9 L 7.3 L (8.4-10.2) mg/dL Unconjugated Bilirubin 1.1 (0.0-1.1) mg/dL AST 14 (14-36) U/L ALT 53 H (9-52) U/L Alkaline Phosphatase 61 (38-126) U/L Total Protein 4.1 L (6.3-8.2) g/dL Albumin 2.2 L (3.5-5.0) g/dL Current Medications Generic Name Dose Route Start Last Admin Trade Name Freq PRN Reason Stop Dose Admin Acetaminophen 650 mg 11/04/16 15:32 Tylenol Tab PO Q6HR PRN Fever and/ or Pain Acetaminophen/Hydrocodone Bitart 1 each 11/04/16 17:05 [place] 5-325 PO Q6HR PRN Pain Alprazolam 0.25 mg 11/04/16 17:05 Xanax PO TID PRN Anxiety Atorvastatin Calcium 20 mg 11/05/16 09:00 11/05/16 08:30 Lipitor PO 20 mg DAILY JOHANNY Administration Furosemide 40 mg 11/04/16 17:00 11/05/16 08:30 Lasix PO 40 mg DAILY JOHANNY Administration Sodium Chloride 1,000 mls @ 100 mls/hr 11/04/16 14:00 11/05/16 08:28 Saline 0.9% IV 100 mls/hr .Q10H JOHANNY Administration Piperacillin/Tazobactam/ 50 mls @ 12.5 mls/hr 11/05/16 00:00 11/05/16 08:30 Dextrose 3.375 gm/ IV Solution IVPB 12.5 mls/hr Q8HR JOHANNY Administration Vancomycin HCl 1,500 mg/ 250 mls @ 125 mls/hr 11/04/16 20:00 11/04/16 23:03 Sodium Chloride IVPB 125 mls/hr Q16H JOHANNY Administration Amiodarone HCl 450 mg/ 259 mls @ 34.53 mls/hr 11/04/16 18:45 11/05/16 08:24 Dextrose/Water IV 11/05/16 18:46 0.5 mg/min .Q7H31M JOHANNY 17.26 mls/hr Protocol Administration 1 MG/MIN Diltiazem HCl 125 mg/ Sodium 125 mls @ 5 mls/hr 11/05/16 09:30 Chloride IV .Q24H JOHANNY 5 MG/HR Melatonin 3 mg 11/04/16 21:00 11/05/16 07:32 Melatonin PO Not Given [facility] Miscellaneous Information 0 each 11/06/16 19:00 Vancomycin Trough Due MISCELLANE 11/06/16 19:01 DIRECTED ONE Morphine Sulfate 4 mg 11/04/16 13:48 Morphine Sulfate (Inj) IV Q4HR PRN Chest Pain Multivitamins 1 each 11/05/16 12:00 Theragran PO DAILY@1200 [facility] Nitroglycerin 0.4 mg 11/04/16 13:48 Nitrostat SUBLINGUAL Q5M PRN Chest Pain Potassium Chloride 10 meq 11/05/16 09:00 11/05/16 08:30 K-Dur 10 PO 10 meq DAILY JOHANNY Administration Intake and Output 11/04/16 11/05/16 11/05/16 22:59 06:59 14:59 Intake Total 2235.75 620 201 Output Total 600 Balance 2235.75 20 201 Intake: IV 2100 ACETAMINOPHEN IV (For NPO 100 ) 1,000 mg In Empty Bag 1 bag @ 400 mls/hr IVPB ONCE STA Rx#:[id number] Sodium Chloride 0.9% 1, 1000 000 ml @ 999 mls/hr IV . Q1H1M ONE Rx#:[id number] Sodium Chloride 0.9% 1, 500 000 ml @ 999 mls/hr IV . Q1H1M STA Rx#:[id number] Sodium Chloride 0.9% 500 500 ml @ 999 mls/hr IV .Q31M ONE Rx#:[id number] Intake, IV Titration 35.75 Amount Diltiazem 125 mg In 35.75 Sodium Chloride 0.9% 100 ml @ 5 MG/HR 5 mls/hr IV .Q24H ONE Rx#:[id number] Oral 100 Blood Product 0 620 201 Platelet Pheresis Acda1 0 201 Unit [id number] Rc As-1 Unit 310 [id number] Rc As-1 Unit 0 310 [id number] Output: Urine 150 Stool 450 Other: Voiding Method Bedpan Bedpan Bedpan Weight 82 kg 11/05/16 05:43 11/05/16 05:43
--- NOTE | 2016-11-05 09:24 | P.CNPUL ---
History of Present Illness Consult date: 11/05/16 Reason for consult: other Chief complaint: Hypotension History of present illness: This is an 79-year-old female who presented to the emergency department on November 04. She presented for evaluation because of weakness. She recently had chemotherapy and apparently developed significant weakness and was found in the emergency department to have atrial fibrillation with RVR. She also apparently did have some shortness of breath. No fever. No chills. No nausea vomiting or diarrhea. She sees Dr. Gelacio Boss [facility]. I was asked to see her because she had an 18: Her yesterday. She apparently had atrial fibrillation with RVR. She apparently received IV Cardizem via drip and also some mild IV beta cassandra as well as oral beta cassandra. In addition, she was waiting to receive some blood and some platelets and fresh frozen plasma. The patient seemed to be stable. He was noted she was hypotensive, she was alert and oriented. She was lucid. We decided not to move her. Today she is doing well. No particular complaints. Review of Systems A 12 point review of system is only positive for weakness today. Other than that she is not responding positively to any of the other review of system questions that I asked. Yesterday she was more profoundly weak. Denies any pain shortness of breath cough or phlegm production wheezing. Past Medical History Past Medical History: Atrial Fibrillation, Hyperlipidemia, Hypertension Additional Past Medical History / Comment(s): LT PAROTID RUMOR, Lymphoma. PT STATED HAD CHEMO 10-28-, PT STATED HAD BEEN ON A DIRUTETIC AND LOST 19#, APPETITE DOWN A BIT NOT SURE IF ALL WT LOST WAS FLUID WT. PT STATED HAD 2 EPISODE OF DIARRHEA DAY OF ADMIT. History of Any Multi-Drug Resistant Organisms: None Reported Past Surgical History: Appendectomy, Cholecystectomy, Hysterectomy Additional Past Surgical History / Comment(s): lt cataract, LT PAROTIS TUMOR REMOVED, RT UPPER CHEST PORT. Past Anesthesia/Blood Transfusion Reactions: No Reported Reaction Past Psychological History: No Psychological Hx Reported Smoking Status: Never smoker Past Alcohol Use History: Occasional Additional Past Alcohol Use History / Comment(s): Patient is a lifelong nonsmoker. She denies any medical marijuana, marijuana, street drug use. She drinks alcohol a beer occasionally. She lives alone and is very independent. There are no pets in the home. She worked in [employer] and has been retired for many years. Past Drug Use History: None Reported - Past Family History Mother History Unknown: Yes Family Medical History: Cancer Father Family Medical History: Myocardial Infarction ([place]) Medications and Allergies Home Medications Medication Instructions Recorded Confirmed Type Atorvastatin [Lipitor] 20 mg PO DAILY 04/21/16 11/04/16 History Quinapril HCl [Accupril] 20 mg PO QAM 04/21/16 11/04/16 History Amiodarone [Cordarone] 200 mg PO DAILY 11/04/16 11/04/16 History Furosemide [Lasix] 40 mg PO DAILY 11/04/16 11/04/16 History Potassium Chloride [Klor-Con 10] 10 meq PO DAILY 11/04/16 11/04/16 History Allergies Allergy/AdvReac Type Severity Reaction Status Date / Time No Known Allergies Allergy Verified 11/04/16 14:07 Physical Exam Osteopathic Statement: *. No significant issues noted on an osteopathic structural exam other than those noted in the History and Physical/Consult. Vitals: Vital Signs Temp Pulse Pulse Resp BP BP Pulse Ox 11/05/16 08:17 98.8 F 131 H 18 118/68 11/05/16 08:16 98.8 F 131 H 18 118/68 11/05/16 06:42 99.8 F H 130 H 16 119/62 11/05/16 06:30 99.2 F 138 H 16 119/66 99 11/05/16 04:52 111/66 11/05/16 04:46 99.7 F H 137 H 18 99 11/05/16 04:00 98.9 F 135 H 16 109/60 98 11/05/16 02:14 99.5 F 135 H 18 106/59 11/05/16 01:59 99.5 F 139 H 16 111/59 100 11/05/16 00:00 99.5 F 136 H 16 121/72 11/04/16 22:59 99.3 F 152 H 20 117/56 100 11/04/16 22:49 101.4 F H 146 H 18 112/63 11/04/16 20:00 98.7 F 144 H 18 101/60 100 11/04/16 19:08 98.8 F 137 H 16 85/50 99 11/04/16 19:04 137 H 85/50 11/04/16 18:50 136 H 98/49 11/04/16 18:47 132 H 90/57 11/04/16 18:43 121 H 81/44 11/04/16 18:29 98.3 F 137 H 75/43 11/04/16 18:23 136 H 70/44 11/04/16 18:15 72/39 11/04/16 18:11 121 H 70/41 11/04/16 17:49 98.8 F 132 H 16 77/47 99 11/04/16 15:30 102.1 F H 142 H 20 136/62 100 11/04/16 15:05 101.6 F H 156 H 18 123/57 97 11/04/16 14:29 158 H 18 123/57 100 Intake and Output 11/04/16 11/05/16 11/05/16 22:59 06:59 14:59 Intake Total 2235.75 620 201 Output Total 600 Balance 2235.75 20 201 Intake: IV 2100 ACETAMINOPHEN IV (For NPO 100 ) 1,000 mg In Empty Bag 1 bag @ 400 mls/hr IVPB ONCE STA Rx#:[id number] Sodium Chloride 0.9% 1, 1000 000 ml @ 999 mls/hr IV . Q1H1M ONE Rx#:[id number] Sodium Chloride 0.9% 1, 500 000 ml @ 999 mls/hr IV . Q1H1M STA Rx#:[id number] Sodium Chloride 0.9% 500 500 ml @ 999 mls/hr IV .Q31M ONE Rx#:[id number] Intake, IV Titration 35.75 Amount Diltiazem 125 mg In 35.75 Sodium Chloride 0.9% 100 ml @ 5 MG/HR 5 mls/hr IV .Q24H ONE Rx#:[id number] Oral 100 Blood Product 0 620 201 Platelet Pheresis Acda1 0 201 Unit [id number] Rc As-1 Unit 310 [id number] Rc As-1 Unit 0 310 [id number] Output: Urine 150 Stool 450 Other: Voiding Method Bedpan Bedpan Bedpan Weight 82 kg No acute distress, oriented 3. HEENT examination is grossly unremarkable. Next memory is are bit dry. No oral lesions. Neck supple. Full range of motion. No adenopathy. Cardiovascular examination reveals a regular rhythm rate. Heart rate about 110. Clearly in atrial fibrillation. No distinct murmur. Lungs reveal relatively clear breath sounds. A few scattered mild rhonchi. No wheezes. No crackles. Abdomen soft Extremities are intact. Results - Laboratory Findings CBC and BMP: 11/05/16 05:43 11/05/16 05:43 Abnormal lab findings: Abnormal Labs 11/04/16 11/04/16 11/04/16 15:59 15:59 15:59 WBC RBC Hgb Hct RDW Plt Count Potassium BUN 28 H Glucose 160 H Calcium 7.9 L Total Bilirubin 1.6 H Delta Bilirubin 0.5 H ALT 53 H Total Creatine Kinase <20 L Troponin I Total Protein 4.1 L Albumin 2.2 L HDL Cholesterol Urine Blood Urine Nitrate Urine Bacteria Crossmatch 11/04/16 11/04/16 11/04/16 15:59 17:37 22:40 WBC 0.1 L* RBC 2.12 L Hgb 6.8 L* D Hct 20.9 L RDW 19.0 H Plt Count 11 L* D Potassium BUN Glucose Calcium Total Bilirubin Delta Bilirubin ALT Total Creatine Kinase <20 L Troponin I 0.051 H* Total Protein Albumin HDL Cholesterol Urine Blood Urine Nitrate Urine Bacteria Crossmatch See Detail 11/05/16 11/05/16 11/05/16 01:24 05:43 05:43 WBC 0.2 L* RBC 2.65 L Hgb 8.5 L D Hct 25.5 L RDW 18.0 H Plt Count 8 L* Potassium 3.2 L BUN 25 H Glucose 161 H Calcium 7.3 L Total Bilirubin Delta Bilirubin ALT Total Creatine Kinase Troponin I Total Protein Albumin HDL Cholesterol 33 L Urine Blood Trace H Urine Nitrate Positive H Urine Bacteria Many H Crossmatch - Diagnostic Findings Chest x-ray: image reviewed (Labs x-rays and medications are reviewed.) Assessment and Plan (1) Anemia Status: Acute (2) Atrial flutter with rapid ventricular response Status: Acute (3) Pancytopenia Status: Acute (4) Diffuse large B-cell lymphoma Status: Chronic (5) Atrial fibrillation Status: Acute (6) Hyperlipemia Status: Acute (7) Hypertension Status: Acute Plan: Plan dated 11/05/2016 The patient seemed to be much more stable. Medications x-rays and labs are reviewed. We'll see the patient only as needed. There was no need to yesterday to transfer the patient to the ICU. We'll continue to watch so to be glad to see the patient in follow up should she need our assistance. Time with Patient: Greater than 30
[2016-11-05] MEDS: DILTIAZEM 125 MG in SODIUM CHLORIDE 0.9% 100 ML IV SCH (09:50)
[2016-11-05] MEDS: MULTIVITAMINS, THERA 1 EACH TAB PO SCH (12:40)
[2016-11-05] MEDS: VANCOMYCIN 1,500 MG in SODIUM CHLORIDE 0.9% 250 ML IVPB SCH (12:42)
[2016-11-05] MEDS: POTASSIUM CHLORIDE ER 20 MEQ TAB.ER PO SCH ×2 (13:48→16:11)
--- NOTE | 2016-11-05 14:31 | P.CONS ---
History of Present Illness - Reason for Consult Consult date: 11/05/16 Sepsis - History of Present Illness This is an 81-year-old female. She is well-known to ID service as she was seen during a hospitalization in April 2016 at which time she presented with left jaw swelling at the left parotid area with tenderness and surrounding erythema. There was concern for phlegmon. She was treated with Augmentin at the time of discharge and had follow-up with Dr. 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 She underwent chemotherapy in August for 2 cycles of R CHOP. She was hospitalized in September for atrial flutter and subsequently chemotherapy was changed to our COPD and patient received a dose of Neulasta on October 31. Patient presented to [facility] complaining of weakness. She was initially at [facility] and transferred. She was found to be in atrial fibrillation with rapid ventricular response. Patient was initially started on Cardizem drip which is been changed amiodarone drip. She has been tachycardic with a temperature of 102.1. Patient is severely pancytopenic with WBC currently 0.2, hemoglobin 8.5 up from 6.8 and platelet count 8. She is status post 2 units packed RBCs and platelets. Cardiology and pulmonary medicine are both on consult. Patient does state that she had a little diarrhea at home and one in the emergency center. She states her weakness is improved this morning but not back to baseline. She states she has also had significant lower extremity edema for which she has been on diuretic prior to admission. Review of Systems All systems: negative Constitutional: Reports anorexia, Reports chills, Reports fatigue, Reports fever , Reports lethargy, Reports malaise, Reports poor appetite, Reports weakness Eyes: denies blurred vision, denies pain Ears, nose, mouth and throat: Denies headache, Denies sore throat Cardiovascular: Denies chest pain, Denies shortness of breath Respiratory: Denies cough Gastrointestinal: Reports diarrhea, Denies abdominal pain, Denies nausea, Denies vomiting Genitourinary: Denies dysuria, Denies hematuria Musculoskeletal: Denies myalgias Integumentary: Denies pruritus, Denies rash Neurological: Denies numbness, Denies weakness Psychiatric: Denies anxiety, Denies depression Endocrine: Denies fatigue, Denies weight change Past Medical History Past Medical History: Atrial Fibrillation, Hyperlipidemia, Hypertension Additional Past Medical History / Comment(s): LT PAROTID RUMOR, Lymphoma. PT STATED HAD CHEMO 10-28-16, PT STATED HAD BEEN ON A DIRUTETIC AND LOST 19#, APPETITE DOWN A BIT NOT SURE IF ALL WT LOST WAS FLUID WT. PT STATED HAD 2 EPISODE OF DIARRHEA DAY OF ADMIT. History of Any Multi-Drug Resistant Organisms: None Reported Past Surgical History: Appendectomy, Cholecystectomy, Hysterectomy Additional Past Surgical History / Comment(s): lt cataract, LT PAROTIS TUMOR REMOVED, RT UPPER CHEST PORT. Past Anesthesia/Blood Transfusion Reactions: No Reported Reaction Past Psychological History: No Psychological Hx Reported Smoking Status: Never smoker Past Alcohol Use History: Occasional Additional Past Alcohol Use History / Comment(s): Patient is a lifelong nonsmoker. She denies any medical marijuana, marijuana, street drug use. She drinks alcohol a beer occasionally. She lives alone and is very independent. There are no pets in the home. She worked in [employer] and has been retired for many years. Past Drug Use History: None Reported - Past Family History Mother History Unknown: Yes Family Medical History: Cancer Father Family Medical History: Myocardial Infarction (MT) Medications and Allergies Home Medications Medication Instructions Recorded Confirmed Type Atorvastatin [Lipitor] 20 mg PO DAILY 04/21/16 11/04/16 History Quinapril HCl [Accupril] 20 mg PO QAM 04/21/16 11/04/16 History Amiodarone [Cordarone] 200 mg PO DAILY 11/04/16 11/04/16 History Furosemide [Lasix] 40 mg PO DAILY 11/04/16 11/04/16 History Potassium Chloride [Klor-Con 10] 10 meq PO DAILY 11/04/16 11/04/16 History Allergies Allergy/AdvReac Type Severity Reaction Status Date / Time No Known Allergies Allergy Verified 11/04/16 14:07 Physical Exam Vitals: Vital Signs Temp Pulse Pulse Resp BP BP Pulse Ox 11/05/16 08:17 98.8 F 131 H 18 118/68 11/05/16 08:16 98.8 F 131 H 18 118/68 11/05/16 06:42 99.8 F H 130 H 16 119/62 11/05/16 06:30 99.2 F 138 H 16 119/66 99 11/05/16 04:52 111/66 11/05/16 04:46 99.7 F H 137 H 18 99 11/05/16 04:00 98.9 F 135 H 16 109/60 98 11/05/16 02:14 99.5 F 135 H 18 106/59 11/05/16 01:59 99.5 F 139 H 16 111/59 100 11/05/16 00:00 99.5 F 136 H 16 121/72 11/04/16 22:59 99.3 F 152 H 20 117/56 100 11/04/16 22:49 101.4 F H 146 H 18 112/63 11/04/16 20:00 98.7 F 144 H 18 101/60 100 11/04/16 19:08 98.8 F 137 H 16 85/50 99 11/04/16 19:04 137 H 85/50 11/04/16 18:50 136 H 98/49 11/04/16 18:47 132 H 90/57 11/04/16 18:43 121 H 81/44 11/04/16 18:29 98.3 F 137 H 75/43 11/04/16 18:23 136 H 70/44 11/04/16 18:15 72/39 11/04/16 18:11 121 H 70/41 11/04/16 17:49 98.8 F 132 H 16 77/47 99 11/04/16 15:30 102.1 F H 142 H 20 136/62 100 11/04/16 15:05 101.6 F H 156 H 18 123/57 97 11/04/16 14:29 158 H 18 123/57 100 Intake and Output 11/04/16 11/05/16 11/05/16 22:59 06:59 14:59 Intake Total 2235.75 620 201 Output Total 600 Balance 2235.75 20 201 Intake: IV 2100 ACETAMINOPHEN IV (For NPO 100 ) 1,000 mg In Empty Bag 1 bag @ 400 mls/hr IVPB ONCE STA Rx#:[id number] Sodium Chloride 0.9% 1, 1000 000 ml @ 999 mls/hr IV . Q1H1M ONE Rx#:[id number] Sodium Chloride 0.9% 1, 500 000 ml @ 999 mls/hr IV . Q1H1M STA Rx#:[id number] Sodium Chloride 0.9% 500 500 ml @ 999 mls/hr IV .Q31M ONE Rx#:[id number] Intake, IV Titration 35.75 Amount Diltiazem 125 mg In 35.75 Sodium Chloride 0.9% 100 ml @ 5 MG/HR 5 mls/hr IV .Q24H ONE Rx#:[id number] Oral 100 Blood Product 0 620 201 Platelet Pheresis Acda1 0 201 Unit [id number] Rc As-1 Unit 310 [id number] Rc As-1 Unit 0 310 [id number] Output: Urine 150 Stool 450 Other: Voiding Method Bedpan Bedpan Bedpan Weight 82 kg Gen: This is a 81-year-old female. She is resting in bed and appears to be in no acute distress. HEENT: Head is atraumatic, normocephalic. Pupils equal, round. Sclerae is anicteric. Conjunctiva slightly pale. Mucous members of the mouth are dry. No thrush noted. NECK: Supple. No JVD. No lymphadenopathy. No thyromegaly. LUNGS: A few scattered rhonchi. No wheezes. No intercostal retractions. HEART: Irregular rate and rhythm. No murmur. Port noted to right upper anterior chest wall with no surrounding tenderness, erythema or edema. ABDOMEN: Soft. Bowel sounds are present. No masses. No tenderness. EXTREMITIES: 2+ bilateral pedal edema. Dorsalis pedis +2 bilaterally. NEUROLOGICAL: Patient is awake, alert and oriented x3. Cranial nerves 2 through 12 are grossly intact. Results CBC & Chem 7: 11/06/16 05:38 11/06/16 05:38 Labs: Abnormal Lab Results - Last 24 Hours (Table) 11/04/16 11/04/16 11/04/16 Range/Units 15:59 15:59 15:59 WBC (3.8-10.6) k/uL RBC (3.80-5.40) m/uL Hgb (11.4-16.0) gm/dL Hct (34.0-46.0) % RDW (11.5-15.5) % Plt Count (150-450) k/uL Potassium (3.5-5.1) mmol/L BUN 28 H (7-17) mg/dL Glucose 160 H (74-99) mg/dL Calcium 7.9 L (8.4-10.2) mg/dL Total Bilirubin 1.6 H (0.2-1.3) mg/dL Delta Bilirubin 0.5 H (0.0-0.2) mg/dL ALT 53 H (9-52) U/L Total Creatine Kinase <20 L (30-135) U/L Troponin I (0.000-0.034) ng/mL Total Protein 4.1 L (6.3-8.2) g/dL Albumin 2.2 L (3.5-5.0) g/dL HDL Cholesterol (40-60) mg/dL Urine Blood (Negative) Urine Nitrate (Negative) Urine Bacteria (None) /hpf Crossmatch 11/04/16 11/04/16 11/04/16 Range/Units 15:59 17:37 22:40 WBC 0.1 L* (3.8-10.6) k/uL RBC 2.12 L (3.80-5.40) m/uL Hgb 6.8 L* D (11.4-16.0) gm/dL Hct 20.9 L (34.0-46.0) % RDW 19.0 H (11.5-15.5) % Plt Count 11 L* D (150-450) k/uL Potassium (3.5-5.1) mmol/L BUN (7-17) mg/dL Glucose (74-99) mg/dL Calcium (8.4-10.2) mg/dL Total Bilirubin (0.2-1.3) mg/dL Delta Bilirubin (0.0-0.2) mg/dL ALT (9-52) U/L Total Creatine Kinase <20 L (30-135) U/L Troponin I 0.051 H* (0.000-0.034) ng/mL Total Protein (6.3-8.2) g/dL Albumin (3.5-5.0) g/dL HDL Cholesterol (40-60) mg/dL Urine Blood (Negative) Urine Nitrate (Negative) Urine Bacteria (None) /hpf Crossmatch See Detail 11/05/16 11/05/16 11/05/16 Range/Units 01:24 05:43 05:43 WBC 0.2 L* (3.8-10.6) k/uL RBC 2.65 L (3.80-5.40) m/uL Hgb 8.5 L D (11.4-16.0) gm/dL Hct 25.5 L (34.0-46.0) % RDW 18.0 H (11.5-15.5) % Plt Count 8 L* (150-450) k/uL Potassium 3.2 L (3.5-5.1) mmol/L BUN 25 H (7-17) mg/dL Glucose 161 H (74-99) mg/dL Calcium 7.3 L (8.4-10.2) mg/dL Total Bilirubin (0.2-1.3) mg/dL Delta Bilirubin (0.0-0.2) mg/dL ALT (9-52) U/L Total Creatine Kinase (30-135) U/L Troponin I (0.000-0.034) ng/mL Total Protein (6.3-8.2) g/dL Albumin (3.5-5.0) g/dL HDL Cholesterol 33 L (40-60) mg/dL Urine Blood Trace H (Negative) Urine Nitrate Positive H (Negative) Urine Bacteria Many H (None) /hpf Crossmatch Assessment and Plan Plan: This is an 81-year-old female who presented to the hospital with neutropenic sepsis, atrial fibrillation with rapid ventricular rate and pancytopenia. She has a past history of diffuse large B-cell lymphoma. She is currently on IV antibiotics of form of Zosyn and vancomycin. These will be adjusted to meropenem. Cultures are in progress. Continue supportive care. Further recommendations as patient progresses. The above dictated assessment and findings were discussed with Dr. Leal. The impression and plan of care have been directed as dictated. Devika German nurse practitioner acting as scribe for Dr. Leal. Time with Patient: Greater than 30
--- NOTE | 2016-11-05 19:28 | P.PN ---
Subjective Principal diagnosis: severe weakness, febrile neutropenia Pt seen today in follow up, she states feeling better today, she has drank fluids, small amount of oral intake, no nausea or vomiting, SOB, cough, oral irritation, sore throat, abd pain, distension, diarrhea or constipation, no gross bleeding. Objective - Vital Signs Vital signs: Vital Signs Temp 97.7 F 11/05/16 16:28 Pulse 137 H 11/05/16 16:28 Resp 18 11/05/16 16:28 BP 118/62 11/05/16 16:28 Pulse Ox 98 11/05/16 16:28 Intake & Output 11/04/16 11/05/16 11/05/16 18:59 06:59 18:59 Intake Total 1735.75 1120 1374.457 Output Total 600 800 Balance 1735.75 520 574.457 Weight 82 kg 82 kg Intake: IV 1600 500 ACETAMINOPHEN IV (For NPO 100 ) 1,000 mg In Empty Bag 1 bag @ 400 mls/hr IVPB ONCE STA Rx#:[id number] Sodium Chloride 0.9% 1, 1000 000 ml @ 999 mls/hr IV . Q1H1M ONE Rx#:[id number] Sodium Chloride 0.9% 1, 500 000 ml @ 999 mls/hr IV . Q1H1M STA Rx#:[id number] Sodium Chloride 0.9% 500 500 ml @ 999 mls/hr IV .Q31M ONE Rx#:[id number] Intake, IV Titration 35.75 873.457 Amount Amiodarone 450 mg In 410.957 Dextrose 5% in Water 250 ml @ 1 MG/MIN 34.53 mls/ hr IV .Q7H31M JOHANNY Rx#: [id number] Diltiazem 125 mg In 35.75 Sodium Chloride 0.9% 100 ml @ 5 MG/HR 5 mls/hr IV .Q24H ONE Rx#:[id number] Diltiazem 125 mg In 12.5 Sodium Chloride 0.9% 100 ml @ 5 MG/HR 5 mls/hr IV .Q24H JOHANNY Rx#:[id number] Piperacillin-Tazobactam 3 50 .375 gm In Dextrose/Water 1 50ml.bag @ 12.5 mls/hr IVPB Q8HR JOHANNY Rx#: [id number] Sodium Chloride 0.9% 1, 400 000 ml @ 100 mls/hr IV . Q10H [facility] Rx#:[id number] Oral 100 300 Blood Product 620 201 Platelet Pheresis Acda1 0 201 Unit [id number] Rc As-1 Unit 310 [id number] Rc As-1 Unit 310 [id number] Output: Urine 150 800 Stool 450 Other: Voiding Method Bedpan Bedpan # Voids 0 # Bowel Movements 1 - Constitutional General appearance: Present: average body habitus, cooperative, no acute distress - EENT EENT Comment(s): pale mucus membranes, dry mouth, no ulcer or thrush Eyes: Present: scleral icterus - Respiratory Respiratory: bilateral: CTA - Cardiovascular Rhythm: regular Heart sounds: normal: S1, S2 - Peripheral edema leg Peripheral Edema: bilateral: None - Gastrointestinal General gastrointestinal: Present: normal bowel sounds, soft - Neurologic Neurologic: Present: CNII-XII intact - Musculoskeletal Musculoskeletal: Present: generalized weakness - Psychiatric Psychiatric: Present: A&O x's 3, appropriate affect, intact judgment & insight - Labs CBC & Chem 7: 11/05/16 05:43 11/05/16 05:43 Labs: Abnormal Lab Results - Last 24 Hours (Table) 11/04/16 11/04/16 11/05/16 Range/Units 17:37 22:40 01:24 WBC (3.8-10.6) k/uL RBC (3.80-5.40) m/uL Hgb (11.4-16.0) gm/dL Hct (34.0-46.0) % RDW (11.5-15.5) % Plt Count (150-450) k/uL Potassium (3.5-5.1) mmol/L BUN (7-17) mg/dL Glucose (74-99) mg/dL Calcium (8.4-10.2) mg/dL Total Creatine Kinase <20 L (30-135) U/L Troponin I 0.051 H* (0.000-0.034) ng/mL HDL Cholesterol (40-60) mg/dL Urine Blood Trace H (Negative) Urine Nitrate Positive H (Negative) Urine Bacteria Many H (None) /hpf Crossmatch See Detail 11/05/16 11/05/16 Range/Units 05:43 05:43 WBC 0.2 L* (3.8-10.6) k/uL RBC 2.65 L (3.80-5.40) m/uL Hgb 8.5 L D (11.4-16.0) gm/dL Hct 25.5 L (34.0-46.0) % RDW 18.0 H (11.5-15.5) % Plt Count 8 L* (150-450) k/uL Potassium 3.2 L (3.5-5.1) mmol/L BUN 25 H (7-17) mg/dL Glucose 161 H (74-99) mg/dL Calcium 7.3 L (8.4-10.2) mg/dL Total Creatine Kinase (30-135) U/L Troponin I (0.000-0.034) ng/mL HDL Cholesterol 33 L (40-60) mg/dL Urine Blood (Negative) Urine Nitrate (Negative) Urine Bacteria (None) /hpf Crossmatch Microbiology - Last 24 Hours (Table) 11/04/16 15:59 Blood Culture - Preliminary Blood No Growth after 24 hours 11/05/16 01:24 Urine Culture - Preliminary Urine,Clean Catch Assessment and Plan (1) Pancytopenia Narrative/Plan: Hgb improved with 2 units, stable, platelets did not improved, another unit SDP ordered, WBC 0.2, no GCSF for now. No aspirin, anticoagulants or NSAIDs. Status: Acute (2) Diffuse large B-cell lymphoma Narrative/Plan: Pt is s/p 3 cycles of R-CHOP which was changed to R-CEOP when pt had cardiac arrhythmia after 3rd cycle. This cycle was complicated with severe pancytopenia and arrhythmia. It was discussed with Dr. Montana and he is considering stopping treatment after 4 cycles due to severe side effects, this was mentioned to pt because at this time she would not do treatment again. Recommended discussion with Dr. Montana once she is recovered, she agreed. Status: Chronic (3) Febrile neutropenia Narrative/Plan: No fevers for 24 hours, empiric abx, BC negative at 24 hours, UA culture pending. No GCSF at this time, CBC daily. Status: Acute
--- NOTE | 2016-11-05 19:35 | PN ---
This 81-year-old woman who was admitted with atrial fibrillation, fast ventricular rate also had a fever and weakness and possibly sepsis also. The patient also was noted to have severe pancytopenia with a white count of 0.2 and hemoglobin 8.5 and platelets of 80. Patient has received transfusions. The patient is being closely monitored. The patient is feeling slightly better; however, is on IV antibiotics as mentioned earlier. The cultures are negative so far. Multiple consultants, including Hematology/Oncology as well Infectious Disease are following the patient closely. Patient has history of atrial fibrillation. Patient is on amiodarone at this time. No chest pain or palpitations. No fever. PAST MEDICAL HISTORY: Reviewed. REVIEW OF SYSTEMS: CARDIOVASCULAR: No angina or palpitations. RESPIRATORY: As mentioned earlier. GI: No nausea. : No dysuria. HEMATOLOGY/ONCOLOGY: As mentioned earlier. Current medications are reviewed and include: 1. Tylenol 650 every 6 hours. 2. [place] 5 mg every 6 hours. 3. Xanax 0.25 t.i.d. 4. Amiodarone drip. 5. Lipitor 20 mg daily. 6. Cardizem drip. 7. Lasix 40 mg p.o. daily. 8. Melatonin 3 mg every 6 hours. 9. Vancomycin. 10. Morphine. 11. Multivitamins. 12. Nitrostat. 13. Zosyn IV. 14. K-Dur. On physical exam, the patient is alert and oriented x3. Pulse is 136, blood pressure 113/61, respirations 18, temperature 98.2, pulse ox 98% on room air. HEENT: Conjunctivae pale. Oral mucosa moist. CARDIOVASCULAR: Tachycardic. No S3. No S4. RESPIRATORY: Breath sounds diminished in the bases. Bilaterally scattered rhonchi and crackles. Abdomen is soft, nontender. LEGS: No edema. No swelling. NERVOUS SYSTEM: No focal deficits. Labs are WBC 0.25, hemoglobin is 8.4, platelets 8. Sodium 130, potassium 3.8. ASSESSMENT: 1. Atrial fibrillation with fast ventricular rate present on admission. 2. Fever, weakness, possible acute sepsis with severe sepsis, status post chemotherapy, present on admission. 3. Severe pancytopenia secondary to chemotherapy. 4. History of lymphoma on chemotherapy. 5. Hypertension. 6. Hyperlipidemia. 7. History of atrial fibrillation. 8. History of left parotid tumor. 9. History of appendectomy. 10. History of cholecystectomy. 11. History of cataracts. 12. History of atrial flutter. 13. History of gait dysfunction. 14. FULL CODE. 15. Hypokalemia. RECOMMENDATIONS AND DISCUSSION: In this 81-year-old woman who presented with multiple complex medical issues, we will monitor the patient closely. Continue the current medications and symptomatic treatment. Otherwise, repeat labs. Continue with IV antibiotics. Continue with amiodarone, Cardizem. Closely follow with Cardiology. Continue to monitor. Guarded prognosis. Further recommendations to follow.
--- NOTE | 2016-11-05 22:08 | P.CON ---
Consult Note - . Consult date: 11/05/16 Assessment/Plan:: This is an 81-year-old female. She is well-known to ID service as she was seen during a hospitalization in April 2016 at which time she presented with left jaw swelling at the left parotid area with tenderness and surrounding erythema. There was concern for phlegmon. She was treated with Augmentin at the time of discharge and had follow-up with Dr. 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 She underwent chemotherapy in August for 2 cycles of R CHOP. She was hospitalized in September for atrial flutter and subsequently chemotherapy was changed to our COPD and patient received a dose of Neulasta on October 31. Patient [facility] to [facility] complaining of weakness. She was initially at [facility] and transferred. She was found to be in atrial fibrillation with rapid ventricular response. Patient was initially started on Cardizem drip which is been changed amiodarone drip. She has been tachycardic with a temperature of 102.1. Patient is severely pancytopenic with WBC currently 0.2, hemoglobin 8.5 up from 6.8 and platelet count 8. She is status post 2 units packed RBCs and platelets. Cardiology and pulmonary medicine are both on consult. Patient does state that she had a little diarrhea at home and one in the emergency center. She states her weakness is improved this morning but not back to baseline. She states she has also had significant lower extremity edema for which she has been on diuretic prior to admission. please see the consult note as dictated by [employer]AT CLE[employer]PERVISOR Mrs Devika German. This pleasant 81-year-old woman presents after her R CHOP chemotherapy with the significant difficulty of febrile neutropenia as well as pancytopenia. Cultures are in process. Given his significant leukopenia as well as thrombocytopenia piperacillin tazobactam will be discontinued and meropenem will be utilized. Her lower extremities some compression can be applied to help with lower extremity edema. Multiple cultures are in iprocess which may further help direct antibiotic therapy. She is on amiodarone and quinolone therapy should be avoided.patient is being evaluated by her oncologist in due to the recent chemotherapy G-CSF is on hold. Receiving supportive transfusions as indicated. I agree with evaluation, assessment and plan as dictated by nurse practitioner Mrs. Devika German.
[2016-11-06] MEDS: AMIODARONE 200 MG TAB PO SCH ×4 (02:32→20:23)
[2016-11-06] MEDS: MELATONIN 3 MG TABLET PO SCH ×2 (05:04→20:22)
[2016-11-06] MEDS: VANCOMYCIN 1,500 MG in SODIUM CHLORIDE 0.9% 250 ML IVPB SCH ×2 (05:55→20:25)
[2016-11-06] MEDS: PIPERACILLIN-TAZOBACTAM 3.375 GM in DEXTROSE/WATER 1 50ML.BAG IVPB SCH ×2 (05:57→09:18)
[2016-11-06] MEDS: DILTIAZEM 125 MG in SODIUM CHLORIDE 0.9% 100 ML IV SCH (06:30)
[2016-11-06 06:53] LABS: ALT 37 U/L (9-52); AST 10 U/L (14-36); Alkaline Phosphatase 46 U/L (38-126); Anion Gap 5 mmol/L; Blood Urea Nitrogen 15 mg/dL (7-17); Calcium 7.5 mg/dL (8.4-10.2); Carbon Dioxide 24 mmol/L (22-30); Chloride 110 mmol/L (98-107); Glucose 117 mg/dL (74-99); Non-African American GFR(MDRD) >60 (>60 ml/min/1.73 sqM); Potassium 3.4 mmol/L (3.5-5.1); Sodium 139 mmol/L (137-145); Total Bilirubin 1.4 mg/dL (0.2-1.3); Total Protein 3.6 g/dL (6.3-8.2)
[2016-11-06 06:55] LABS: Anisocytosis Slight; CH 31.7; CHCM 33.6; HCT 23.5 % (34.0-46.0); HDW 3.24; HGB 7.7 gm/dL (11.4-16.0); Immature Gran Flag Moderate; MCH 31.3 pg (25.0-35.0); MCHC 32.9 g/dL (31.0-37.0); Macrocytosis Slight; RBC 2.48 m/uL (3.80-5.40)
[2016-11-06 07:25] LABS: WBC 0.3 k/uL (3.8-10.6)
[2016-11-06] MEDS: SODIUM CHLORIDE 0.9% 1,000 ML IV SCH ×2 (07:50→07:51)
[2016-11-06] MEDS: POTASSIUM CHLORIDE ER 10 MEQ TAB.ER.PRT PO SCH (08:08)
[2016-11-06] MEDS: ATORVASTATIN 20 MG TAB PO SCH (08:09)
[2016-11-06] MEDS: FUROSEMIDE 40 MG TAB PO SCH (08:10)
[2016-11-06 08:41] LABS: Add Differential Manual Differential
[2016-11-06 08:42] LABS: Ovalocytes Present
[2016-11-06] MEDS: METOPROLOL TARTRATE 50 MG TAB PO SCH ×2 (09:19→20:23)
[2016-11-06] MEDS: MULTIVITAMINS, THERA 1 EACH TAB PO SCH (12:39)
[2016-11-06] MEDS: MEROPENEM 1 GM in SODIUM CHLORIDE 0.9% 100 ML IVPB SCH ×2 (13:59→23:34)
[2016-11-06] MEDS ORDERED: Magnesium Replacement Protocol 1 EACH MISC MISCELLANE PRN (15:23)
--- NOTE | 2016-11-06 16:06 | P.PN ---
Subjective Principal diagnosis: Claus dolan This is an 81-year-old female with known history of hypertension, hyperlipidemia, lymphoma currently undergoing chemotherapy, paroxysmal atrial fibrillation, on Savaysa, although this was by Dr. Montana, she presented to the hospital with symptoms of significant weakness. She denies any palpitations, mild shortness of breath. On admission, patient was found to be in atrial fibrillation with a rapid ventricular response, and was then transferred here from [facility]. At the time of my examination today, her rate was still in the 120s. Beta cassandra 50 mg twice a day was resumed Objective - Vital Signs Vital signs: Vital Signs Temp 98.6 F 11/06/16 12:00 Pulse 120 H 11/06/16 12:00 Resp 16 11/06/16 12:00 BP 98/64 11/06/16 12:00 Pulse Ox 99 11/06/16 12:00 Intake & Output 11/05/16 11/06/16 11/06/16 18:59 06:59 18:59 Intake Total 1374.457 305.333 200 Output Total 800 500 375 Balance 574.457 -194.667 -175 Weight 82 kg 85.5 kg Intake: Intake, IV Titration 873.457 103.333 Amount Amiodarone 450 mg In 410.957 Dextrose 5% in Water 250 ml @ 1 MG/MIN 34.53 mls/ hr IV .Q7H31M [facility]OH[facility]NY Rx#: [id number] Diltiazem 125 mg In 12.5 103.333 Sodium Chloride 0.9% 100 ml @ 5 MG/HR 5 mls/hr IV .Q24H [facility] Rx#:[id number] Piperacillin-Tazobactam 3 50 .375 gm In Dextrose/Water 1 50ml.bag @ 12.5 mls/hr IVPB Q8HR [facility] Rx#: [id number] Sodium Chloride 0.9% 1, 400 000 ml @ 100 mls/hr IV . Q10H [facility] Rx#:[id number] Oral 300 200 Blood Product 201 202 Platelet Pheresis Acda1 202 Unit [id number] Platelet Pheresis Acda1 201 Unit [id number] Output: Urine 800 375 Stool 500 Other: Voiding Method Bedpan Bedpan Bedpan # Voids 0 1 1 # Bowel Movements 1 1 - Exam PHYSICAL EXAMINATION: HEENT: Head is atraumatic, normocephalic. Pupils equal, round. Neck is supple. There is no elevated jugular venous pressure. HEART EXAMINATION: Heart S1 and S2 irregular irregular CHEST EXAMINATION: Lungs are clear to auscultation and precussion. No chest wall tenderness is noted on palpation or with deep breathing. PICC line in place at right upper chest ABDOMEN: Soft, nontender. Bowel sounds are heard. No organomegaly noted. EXTREMITIES: 2+ peripheral pulses with no evidence of peripheral edema and no calf tenderness noted. NEUROLOGIC patient is awake, alert and oriented -3. - Labs CBC & Chem 7: 11/06/16 05:38 11/06/16 05:38 Labs: Abnormal Lab Results - Last 24 Hours (Table) 11/06/16 11/06/16 11/06/16 Range/Units 05:38 05:38 05:43 WBC 0.3 L* (3.8-10.6) k/uL RBC 2.48 L (3.80-5.40) m/uL Hgb 7.7 L (11.4-16.0) gm/dL Hct 23.5 L (34.0-46.0) % RDW 18.0 H (11.5-15.5) % Plt Count 37 L* D (150-450) k/uL Potassium 3.4 L (3.5-5.1) mmol/L Chloride 110 H (98-107) mmol/L Glucose 117 H (74-99) mg/dL Calcium 7.5 L (8.4-10.2) mg/dL Magnesium 1.3 L (1.6-2.3) mg/dL Total Bilirubin 1.4 H (0.2-1.3) mg/dL AST 10 L (14-36) U/L Total Protein 3.6 L (6.3-8.2) g/dL Albumin 1.8 L (3.5-5.0) g/dL Microbiology - Last 24 Hours (Table) 11/04/16 15:59 Blood Culture - Preliminary Blood No Growth after 24 hours 11/05/16 01:24 Urine Culture - Preliminary Urine,Clean Catch Assessment and Plan Plan: Assessment and Plan #1 atrial fibrillation with rapid ventricular response #2 history of paroxysmal atrial fibrillation #3 febrile neutropenia , weakness, possible sepsis. #4 diffuse large B cell lymphoma, on chemotherapy # 5 hypertension #6 hyperlipidemia #7 pancytopenia Plan Most recent echocardiogram with Doppler study was performed in September which revealed an ejection fraction of 55-60%. Resume patient's beta cassandra at 50 mg one tablet by mouth twice a day. DNP note has been reviewed, I agree with a documented findings and plan of care. Patient was seen and examined.
[2016-11-06] MEDS: MAGNESIUM SULFATE-D5W PMX 1 GM in DEXTROSE/WATER 1 100ML.BAG IVPB SCH ×3 (16:12→19:35)
[2016-11-06] MEDS ORDERED: VANCOMYCIN TROUGH DUE 1 EACH MISC MISCELLANE ONE (19:00)
--- NOTE | 2016-11-06 21:24 | P.PN ---
Subjective Principal diagnosis: Febrile neutropenia This is an 81-year-old female. She is well-known to ID service as she was seen during a hospitalization in April 2016 at which time she presented with left jaw swelling at the left parotid area with tenderness and surrounding erythema. There was concern for phlegmon. She was treated with Augmentin at the time of discharge and had follow-up with Dr. 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 She underwent chemotherapy in August for 2 cycles of R CHOP. She was hospitalized in September for atrial flutter and subsequently chemotherapy was changed to our COPD and patient received a dose of Neulasta on October 31. Patient presented to [facility] complaining of weakness. She was initially at [facility] and transferred. She was found to be in atrial fibrillation with rapid ventricular response. Patient was initially started on Cardizem drip which is been changed amiodarone drip. She has been tachycardic with a temperature of 102.1. Patient is severely pancytopenic with WBC currently 0.2, hemoglobin 8.5 up from 6.8 and platelet count 8. She is status post 2 units packed RBCs and platelets. Cardiology and pulmonary medicine are both on consult. Patient does state that she had a little diarrhea at home and one in the emergency center. She states her weakness is improved this morning but not back to baseline. She states she has also had significant lower extremity edema for which she has been on diuretic prior to admission. Patient is feeling somewhat better today. Her fevers have improved. She's not had any chills or rigors. Edema is improving. She's less short of breath. Heart rate is improved. Objective - Vital Signs Vital signs: Vital Signs Temp 97.8 F 11/06/16 19:58 Pulse 107 H 11/06/16 19:58 Resp 16 11/06/16 19:58 BP 114/58 11/06/16 19:58 Pulse Ox 98 11/06/16 19:58 Intake & Output 11/06/16 11/06/16 11/07/16 06:59 18:59 06:59 Intake Total 305.333 200 Output Total 500 875 200 Balance -194.667 -675 -200 Weight 85.5 kg Intake: Intake, IV Titration 103.333 Amount Diltiazem 125 mg In 103.333 Sodium Chloride 0.9% 100 ml @ 5 MG/HR 5 mls/hr IV .Q24H [facility] Rx#:[id number] Oral 200 Blood Product 202 Platelet Pheresis Acda1 202 Unit [id number] Output: Urine 375 Stool 500 200 Urine/Stool Mix 500 Other: Voiding Method Bedpan Bedpan Bedside Commode # Voids 1 1 # Bowel Movements 1 - Exam Gen: This is a 81-year-old female. She is resting in bed and appears to be in no acute distress. Feeling better today HEENT: Head is atraumatic, normocephalic. Pupils equal, round. Sclerae is anicteric. Conjunctiva slightly pale. Mucous members of the mouth are dry. No thrush noted. NECK: Supple. No JVD. No lymphadenopathy. No thyromegaly. LUNGS: A few scattered rhonchi. No wheezes. No intercostal retractions. HEART: Irregular rate and rhythm. No murmur. Port noted to right upper anterior chest wall with no surrounding tenderness, erythema or edema. ABDOMEN: Soft. Bowel sounds are present. No masses. No tenderness. EXTREMITIES: 2+ bilateral pedal edema. Dorsalis pedis +2 bilaterally. NEUROLOGICAL: Patient is awake, alert and oriented x3. - Labs CBC & Chem 7: 11/06/16 05:38 11/06/16 05:38 Labs: Abnormal Lab Results - Last 24 Hours (Table) 11/06/16 11/06/16 11/06/16 Range/Units 05:38 05:38 05:43 WBC 0.3 L* (3.8-10.6) k/uL RBC 2.48 L (3.80-5.40) m/uL Hgb 7.7 L (11.4-16.0) gm/dL Hct 23.5 L (34.0-46.0) % RDW 18.0 H (11.5-15.5) % Plt Count 37 L* D (150-450) k/uL Potassium 3.4 L (3.5-5.1) mmol/L Chloride 110 H (98-107) mmol/L Glucose 117 H (74-99) mg/dL Calcium 7.5 L (8.4-10.2) mg/dL Magnesium 1.3 L (1.6-2.3) mg/dL Total Bilirubin 1.4 H (0.2-1.3) mg/dL AST 10 L (14-36) U/L Total Protein 3.6 L (6.3-8.2) g/dL Albumin 1.8 L (3.5-5.0) g/dL Microbiology - Last 24 Hours (Table) 11/04/16 15:59 Blood Culture - Preliminary Blood No Growth after 48 hours 11/05/16 01:24 Urine Culture - Final Urine,Clean Catch Laboratory Results WBC 0.3 k/uL (3.8-10.6) L* 11/06/16 05:38 RBC 2.48 m/uL (3.80-5.40) L 11/06/16 05:38 Hgb 7.7 gm/dL (11.4-16.0) L 11/06/16 05:38 Hct 23.5 % (34.0-46.0) L 11/06/16 05:38 MCV 95.0 fL (80.0-100.0) 11/06/16 05:38 MCH 31.3 pg (25.0-35.0) 11/06/16 05:38 MCHC 32.9 g/dL (31.0-37.0) 11/06/16 05:38 RDW 18.0 % (11.5-15.5) H 11/06/16 05:38 Plt Count 37 k/uL (150-450) L* D 11/06/16 05:38 Differential Comment 11/06/16 05:38 Manual Slide Review Performed 11/05/16 05:43 Poikilocytosis (manual Present 11/06/16 05:38 Anisocytosis Slight 11/06/16 05:38 Macrocytosis Slight 11/06/16 05:38 Ovalocytes Present 11/06/16 05:38 Fragmented RBCs Present 11/06/16 05:38 Sodium 139 mmol/L (137-145) 11/06/16 05:38 Potassium 3.4 mmol/L (3.5-5.1) L 11/06/16 05:38 Chloride 110 mmol/L (98-107) H 11/06/16 05:38 Carbon Dioxide 24 mmol/L (22-30) 11/06/16 05:38 Anion Gap 5 mmol/L 11/06/16 05:38 BUN 15 mg/dL (7-17) 11/06/16 05:38 Creatinine 0.82 mg/dL (0.52-1.04) 11/06/16 05:38 Est GFR (MDRD) Af Amer >60 (>60 ml/min/1.73 sqM) 11/06/16 05:38 Est GFR (MDRD) Non-Af >60 (>60 ml/min/1.73 sqM) 11/06/16 05:38 Glucose 117 mg/dL (74-99) H 11/06/16 05:38 Plasma Lactic Acid Rodney 1.3 mmol/L (0.7-2.0) 11/04/16 17:37 Calcium 7.5 mg/dL (8.4-10.2) L 11/06/16 05:38 Magnesium 1.3 mg/dL (1.6-2.3) L 11/06/16 05:43 Total Bilirubin 1.4 mg/dL (0.2-1.3) H 11/06/16 05:38 Conjugated Bilirubin 0.0 mg/dL (0.0-0.3) 11/04/16 15:59 Unconjugated Bilirubin 1.1 mg/dL (0.0-1.1) 11/04/16 15:59 Delta Bilirubin 0.5 mg/dL (0.0-0.2) H 11/04/16 15:59 AST 10 U/L (14-36) L 11/06/16 05:38 ALT 37 U/L (9-52) 11/06/16 05:38 Alkaline Phosphatase 46 U/L (38-126) 11/06/16 05:38 Total Creatine Kinase <20 U/L (30-135) L 11/04/16 22:40 CK-MB (CK-2) <0.2 ng/mL (0.0-2.4) 11/04/16 22:40 CK-MB (CK-2) Rel Index 11/04/16 22:40 Troponin I 0.051 ng/mL (0.000-0.034) H* 11/04/16 22:40 Total Protein 3.6 g/dL (6.3-8.2) L 11/06/16 05:38 Albumin 1.8 g/dL (3.5-5.0) L 11/06/16 05:38 Triglycerides 45 mg/dL (<150) 11/05/16 05:43 Cholesterol <50 mg/dL (<200) 11/05/16 05:43 LDL Cholesterol, Calc 8 mg/dL (0-99) 11/05/16 05:43 HDL Cholesterol 33 mg/dL (40-60) L 11/05/16 05:43 TSH 0.951 mIU/L (0.465-4.680) 11/05/16 05:43 Free T4 1.69 ng/dL (0.78-2.19) 11/05/16 05:43 Urine Color Yellow 11/05/16 01:24 Urine Appearance Clear (Clear) 11/05/16 01:24 Urine pH 5.5 (5.0-8.0) 11/05/16 01:24 Ur Specific [place] 1.018 (1.001-1.035) 11/05/16 01:24 Urine Protein Negative (Negative) 11/05/16 01:24 Urine Glucose (UA) Negative (Negative) 11/05/16 01:24 Urine Ketones Negative (Negative) 11/05/16 01:24 Urine Blood Trace (Negative) H 11/05/16 01:24 Urine Nitrate Positive (Negative) H 11/05/16 01:24 Urine Bilirubin Negative (Negative) 11/05/16 01:24 Urine Urobilinogen <2.0 mg/dL (<2.0) 11/05/16 01:24 Ur Leukocyte Esterase Negative (Negative) 11/05/16 01:24 Urine RBC 1 /hpf (0-5) 11/05/16 01:24 Urine WBC 3 /hpf (0-5) 11/05/16 01:24 Ur Squamous Epith Cells 2 /hpf (0-4) 11/05/16 01:24 Urine Bacteria Many /hpf (None) H 11/05/16 01:24 Vancomycin Trough 15.5 ug/mL 11/06/16 19:11 Influenza Type A RNA Not Detected (Not Detectd) 11/04/16 15:04 Influenza Type B (PCR) Not Detected (Not Detectd) 11/04/16 15:04 Blood Type A Positive 11/04/16 17:37 Blood Type Recheck No 11/04/16 17:37 Antibody Screen NEGATIVE 11/04/16 17:37 Crossmatch See Detail 11/04/16 17:37 Transfuse Platelets 11/05/16 11/05/16 08:47 Spec Expiration Date 11/07/2016 - 2359 11/04/16 17:37 Microbiology 11/04/16 15:59 Blood Blood Culture - Preliminary No Growth after 48 hours 11/05/16 01:24 Urine,Clean Catch Urine Culture - Final Assessment and Plan (1) Febrile neutropenia Narrative/Plan: Pleasant 81-year-old female who is status post recycles of R CHOP which was converted to RCEO P presents to hospital with febrile neutropenia associated with significant cardiac dysrhythmia. She's been treated with amiodarone as well as diltiazem drip. Her H improved. She is definitely feeling better today. She is much less weak. His been up in the chair for 3 hours. With less weakness shortness of breath and discomfort. Overall feeling better today. She continues to neutropenia with a white count of 0.3. Cultures remain negative. Doing well with current antibiotic therapy. Fever is improving. This time continue antibiotic therapy without enhancement with the improvement of her fever and negative cultures. Status: Acute (2) Diffuse large B-cell lymphoma Status: Chronic
--- NOTE | 2016-11-06 23:28 | PN ---
Patient is an 81-year-old female admitted for atrial fibrillation and also febrile neutropenia. Patient is on meropenem because of neutropenia. Patient is clinically doing well and patient is still in atrial fibrillation. Rate is not well controlled. Patient was started on metoprolol. Patient continues to be on Cardizem drip. Patient is not on anticoagulation at this point of time, probably because of severe thrombocytopenia. Patient is also on amiodarone. REVIEW OF SYSTEMS: CARDIOVASCULAR: No chest pain, no orthopnea, no PND, no palpitations. PULMONARY: Denied any shortness of breath. No cough or hemoptysis. GASTROINTESTINAL: No diarrhea, nausea or vomiting. No abdominal pain. Normoactive bowel sounds. NEUROLOGIC: No headaches, no weakness, no numbness. Medications were reviewed. Medication changes: I discontinued Lasix as well as IV fluids. Patient's volume status appears to be euvolemic. PHYSICAL EXAMINATION: VITAL SIGNS: Temperature 97.8, pulse of 107, respiratory rate of 16. Blood pressure is 114/58. Saturating at 98% on 2 L of oxygen by nasal cannula. GENERAL: The patient is alert and oriented x3, not in any acute distress. Well developed, well nourished. HEENT: Pupils are round and equally reacting to light. EOMI. No scleral icterus. No conjunctival pallor. Normocephalic, atraumatic. No pharyngeal erythema. No thyromegaly. CARDIOVASCULAR: S1, S2 present. Patient is tachycardic. No other murmurs, rubs or gallops are appreciated. Patient has irregularly irregular rhythm. PULMONARY: Chest is clear to auscultation, no wheezing or crackles. ABDOMEN: Soft, nontender, nondistended, normoactive bowel sounds. No palpable organomegaly. MUSCULOSKELETAL: No joint swelling or deformity. EXTREMITIES: No cyanosis, clubbing, or pedal edema. NEUROLOGICAL: Gross neurological examination did not reveal any focal deficits. SKIN: No rashes. LABORATORY DATA: Patient continues to be severely leukopenic with a WBC count of 300, hemoglobin 7.7. Patient recently received chemotherapy. Platelet count of 37. ASSESSMENT AND PLAN: 1. Atrial fibrillation, not rate-controlled at this point of time. Patient has normal ejection fraction. Patient is on above-mentioned medications. 2. Febrile neutropenia, for which patient is on meropenem. 3. Severe pancytopenia secondary to chemotherapy for lymphoma. 4. Hypertension. 5. Hyperlipidemia. 6. Hypokalemia. Potassium will be corrected. 7. Hypomagnesemia. Magnesium will be corrected. For above-mentioned chronic medical problems, I will go ahead and continue present medications.
[2016-11-07] MEDS: HYDROcodone/APAP 5-325MG 1 EACH TAB PO PRN ×3 (05:52→21:01)
[2016-11-07 06:41] LABS: Anisocytosis Slight; CH 31.6; CHCM 32.6; HCT 23.9 % (34.0-46.0); HDW 3.11; HGB 7.9 gm/dL (11.4-16.0); Immature Gran Flag Marked; Large Platelets Flag Slight; MCH 32.3 pg (25.0-35.0); MCHC 33.1 g/dL (31.0-37.0); MCV 97.7 fL (80.0-100.0); Macrocytosis Slight; Mean Platelet Volume 10.3; RBC 2.44 m/uL (3.80-5.40); RDW 17.6 % (11.5-15.5); WBC (Perox) 1.18
[2016-11-07 06:45] LABS: WBC 1.1 k/uL (3.8-10.6)
[2016-11-07 06:51] LABS: Calcium 7.7 mg/dL (8.4-10.2); Magnesium 1.8 mg/dL (1.6-2.3); Potassium 3.2 mmol/L (3.5-5.1)
[2016-11-07] MEDS ORDERED: Potassium Replacement Protocol 1 EACH MISC MISCELLANE PRN (07:15)
[2016-11-07 07:19] LABS: Add Differential Manual Differential
[2016-11-07 07:22] LABS: Nucleated Red Blood Cells 0 /100 WBC (0-0); Total Cells Counted 100
[2016-11-07 07:25] LABS: Manual Review Performed
[2016-11-07] MEDS ORDERED: POTASSIUM CHLORIDE ER 20 MEQ TAB.ER PO SCH (08:00)
[2016-11-07] MEDS: ATORVASTATIN 20 MG TAB PO SCH (08:47)
[2016-11-07] MEDS: MEROPENEM 1 GM in SODIUM CHLORIDE 0.9% 100 ML IVPB SCH ×2 (09:07→15:44)
[2016-11-07] MEDS: METOPROLOL TARTRATE 50 MG TAB PO SCH ×2 (10:05→21:01)
[2016-11-07] MEDS: AMIODARONE 200 MG TAB PO SCH ×3 (10:05→21:01)
[2016-11-07] MEDS: DILTIAZEM 125 MG in SODIUM CHLORIDE 0.9% 100 ML IV SCH (10:59)
[2016-11-07] MEDS: MULTIVITAMINS, THERA 1 EACH TAB PO SCH (11:54)
[2016-11-07] MEDS: VANCOMYCIN 1,500 MG in SODIUM CHLORIDE 0.9% 250 ML IVPB SCH (11:54)
--- NOTE | 2016-11-07 14:38 | P.PN ---
Subjective Principal diagnosis: Claus dolan This is an 81-year-old female with known history of hypertension, hyperlipidemia, lymphoma currently undergoing chemotherapy, paroxysmal atrial fibrillation, on Savaysa, although this was by Dr. Montana, she presented to the hospital with symptoms of significant weakness. She denies any palpitations, mild shortness of breath. On admission, patient was found to be in atrial fibrillation with a rapid ventricular response, and was then transferred here from [facility]. At the time of my examination today, patient's heart rate is 90 to 100 this morning. Continues to be on oral amiodarone and metoprolol tartrate. OSMAR inhibitor on hold because of hypotension. Savaysa continues to be on hold because of the patient's platelet count, this will be reassessed as an outpatient by Dr. Montana, we had a discussion with him today regarding this. Objective - Vital Signs Vital signs: Vital Signs Temp 96.3 F L 11/07/16 11:58 Pulse 120 H 11/07/16 11:58 Resp 18 11/07/16 11:58 BP 108/54 11/07/16 11:58 Pulse Ox 99 11/07/16 11:58 Intake & Output 11/06/16 11/07/16 11/07/16 18:59 06:59 18:59 Intake Total 200 610 Output Total 875 800 Balance -675 -190 Weight 87.6 kg Intake: IV 610 0.9% NS @ 20 mL/hr 80 Diltiazem 125 mg In 80 Sodium Chloride 0.9% 100 ml @ 5 MG/HR 5 mls/hr IV .Q24H [facility] Rx#:[id number] Magnesium Sulfate-D5w Pmx 100 1 gm In Dextrose/Water 1 100ml.bag @ 100 mls/hr IVPB Q1H [facility] Rx#: [id number] Meropenem 1 gm In Sodium 100 Chloride 0.9% 100 ml @ 200 mls/hr IVPB Q8HR [facility] Rx#:[id number] Vancomycin 1,500 mg In 250 Sodium Chloride 0.9% 250 ml @ 125 mls/hr IVPB Q16H [facility] Rx#:[id number] Oral 200 Output: Urine 375 600 Stool 200 Urine/Stool Mix 500 Other: Voiding Method Bedpan Bedside Commode # Voids 1 1 # Bowel Movements 1 - Exam PHYSICAL EXAMINATION: HEENT: Head is atraumatic, normocephalic. Pupils equal, round. Neck is supple. There is no elevated jugular venous pressure. HEART EXAMINATION: Heart S1 and S2 irregular irregular CHEST EXAMINATION: Lungs are clear to auscultation and precussion. No chest wall tenderness is noted on palpation or with deep breathing. PICC line in place at right upper chest ABDOMEN: Soft, nontender. Bowel sounds are heard. No organomegaly noted. EXTREMITIES: 2+ peripheral pulses with no evidence of peripheral edema and no calf tenderness noted. NEUROLOGIC patient is awake, alert and oriented -3. - Labs CBC & Chem 7: 11/07/16 05:38 11/07/16 05:38 Labs: Abnormal Lab Results - Last 24 Hours (Table) 11/07/16 11/07/16 Range/Units 05:38 05:38 WBC 1.1 L* (3.8-10.6) k/uL RBC 2.44 L (3.80-5.40) m/uL Hgb 7.9 L (11.4-16.0) gm/dL Hct 23.9 L (34.0-46.0) % RDW 17.6 H (11.5-15.5) % Plt Count 14 L* D (150-450) k/uL Neutrophils # (Manual) 0.6 L (1.3-7.7) k/uL Lymphocytes # (Manual) 0.2 L (1.0-4.8) k/uL Potassium 3.2 L (3.5-5.1) mmol/L Chloride 108 H (98-107) mmol/L Creatinine 1.07 H (0.52-1.04) mg/dL Glucose 132 H (74-99) mg/dL Calcium 7.7 L (8.4-10.2) mg/dL Microbiology - Last 24 Hours (Table) 11/04/16 15:59 Blood Culture - Preliminary Blood No Growth after 48 hours 11/05/16 01:24 Urine Culture - Final Urine,Clean Catch Assessment and Plan Plan: Assessment and Plan #1 atrial fibrillation with rapid ventricular response #2 history of paroxysmal atrial fibrillation #3 febrile neutropenia , weakness, possible sepsis. #4 diffuse large B cell lymphoma, on chemotherapy # 5 hypertension #6 hyperlipidemia #7 pancytopenia Plan From cardiology standpoint, we will continue current dose of metoprolol tartrate along with amiodarone. OSMAR inhibitor has been discontinued because of hypotension. She continues to be off of her Savaysa because of the low platelet count. DNP note has been reviewed, I agree with a documented findings and plan of care. Patient was seen and examined.
[2016-11-07] MEDS ORDERED: POTASSIUM CHLORIDE ER 20 MEQ TAB.ER PO STA (16:40)
[2016-11-07] MEDS: MELATONIN 3 MG TABLET PO SCH (21:01)
--- NOTE | 2016-11-07 21:57 | P.PN ---
Subjective Principal diagnosis: Febrile neutropenia This is an 81-year-old female. She is well-known to ID service as she was seen during a hospitalization in April 2016 at which time she presented with left jaw swelling at the left parotid area with tenderness and surrounding erythema. There was concern for phlegmon. She was treated with Augmentin at the time of discharge and had follow-up with Dr. 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 She underwent chemotherapy in August for 2 cycles of R CHOP. She was hospitalized in September for atrial flutter and subsequently chemotherapy was changed to our COPD and patient received a dose of Neulasta on October 31. Patient presented to [facility] complaining of weakness. She was initially at [facility] and transferred. She was found to be in atrial fibrillation with rapid ventricular response. Patient was initially started on Cardizem drip which is been changed amiodarone drip. She has been tachycardic with a temperature of 102.1. Patient is severely pancytopenic with WBC currently 0.2, hemoglobin 8.5 up from 6.8 and platelet count 8. She is status post 2 units packed RBCs and platelets. Cardiology and pulmonary medicine are both on consult. Patient does state that she had a little diarrhea at home and one in the emergency center. She states her weakness is improved this morning but not back to baseline. She states she has also had significant lower extremity edema for which she has been on diuretic prior to admission. Patient is feeling somewhat better today. Her fevers have resolved She's not had any chills or rigors. Edema is improving. She's less short of breath. Heart rate is improved. Objective - Vital Signs Vital signs: Vital Signs Temp 99.4 F 11/07/16 20:00 Pulse 119 H 11/07/16 20:00 Resp 16 11/07/16 20:00 BP 100/58 11/07/16 20:00 Pulse Ox 99 11/07/16 20:00 Intake & Output 11/07/16 11/07/16 11/08/16 06:59 18:59 06:59 Intake Total 610 610 Output Total 800 300 Balance -190 610 -300 Weight 87.6 kg Intake: IV 610 610 0.9% NS @ 20 mL/hr 80 160 Diltiazem 125 mg In 80 Sodium Chloride 0.9% 100 ml @ 5 MG/HR 5 mls/hr IV .Q24H JOHANNY Rx#:[id number] Magnesium Sulfate-D5w Pmx 100 1 gm In Dextrose/Water 1 100ml.bag @ 100 mls/hr IVPB Q1H JOHANNY Rx#: [id number] Meropenem 1 gm In Sodium 100 200 Chloride 0.9% 100 ml @ 200 mls/hr IVPB Q8HR JOHANNY Rx#:[id number] Vancomycin 1,500 mg In 250 250 Sodium Chloride 0.9% 250 ml @ 125 mls/hr IVPB Q16H JOHANNY Rx#:[id number] Output: Urine 600 300 Stool 200 Other: Voiding Method Bedside Commode Bedside Commode # Voids 1 # Bowel Movements 1 - Exam Gen: This is a 81-year-old female. She is resting in bed and appears to be in no acute distress. Feeling better today HEENT: Head is atraumatic, normocephalic. Pupils equal, round. Sclerae is anicteric. Conjunctiva slightly pale. Mucous members of the mouth are dry. No thrush noted. NECK: Supple. No JVD. No lymphadenopathy. No thyromegaly. LUNGS: A few scattered rhonchi. No wheezes. No intercostal retractions. HEART: Irregular rate and rhythm. No murmur. Port noted to right upper anterior chest wall with no surrounding tenderness, erythema or edema. ABDOMEN: Soft. Bowel sounds are present. No masses. No tenderness. EXTREMITIES: 2+ bilateral pedal edema. Dorsalis pedis +2 bilaterally. NEUROLOGICAL: Patient is awake, alert and oriented x3. - Labs CBC & Chem 7: 11/07/16 05:38 11/07/16 05:38 Labs: Abnormal Lab Results - Last 24 Hours (Table) 11/07/16 11/07/16 Range/Units 05:38 05:38 WBC 1.1 L* (3.8-10.6) k/uL RBC 2.44 L (3.80-5.40) m/uL Hgb 7.9 L (11.4-16.0) gm/dL Hct 23.9 L (34.0-46.0) % RDW 17.6 H (11.5-15.5) % Plt Count 14 L* D (150-450) k/uL Neutrophils # (Manual) 0.6 L (1.3-7.7) k/uL Lymphocytes # (Manual) 0.2 L (1.0-4.8) k/uL Potassium 3.2 L (3.5-5.1) mmol/L Chloride 108 H (98-107) mmol/L Creatinine 1.07 H (0.52-1.04) mg/dL Glucose 132 H (74-99) mg/dL Calcium 7.7 L (8.4-10.2) mg/dL Microbiology - Last 24 Hours (Table) 11/04/16 15:59 Blood Culture - Preliminary Blood No Growth after 72 hours Laboratory Results WBC 1.1 k/uL (3.8-10.6) L* 11/07/16 05:38 RBC 2.44 m/uL (3.80-5.40) L 11/07/16 05:38 Hgb 7.9 gm/dL (11.4-16.0) L 11/07/16 05:38 Hct 23.9 % (34.0-46.0) L 11/07/16 05:38 MCV 97.7 fL (80.0-100.0) 11/07/16 05:38 MCH 32.3 pg (25.0-35.0) 11/07/16 05:38 MCHC 33.1 g/dL (31.0-37.0) 11/07/16 05:38 RDW 17.6 % (11.5-15.5) H 11/07/16 05:38 Plt Count 14 k/uL (150-450) L* D 11/07/16 05:38 Neutrophils % (Manual) 12.0 % 11/07/16 05:38 Band Neutrophils % 40.0 % 11/07/16 05:38 Lymphocytes % (Manual) 16.0 % 11/07/16 05:38 Monocytes % (Manual) 24.0 % 11/07/16 05:38 Eosinophils % (Manual) 8.0 % 11/07/16 05:38 Neutrophils # (Manual) 0.6 k/uL (1.3-7.7) L 11/07/16 05:38 Lymphocytes # (Manual) 0.2 k/uL (1.0-4.8) L 11/07/16 05:38 Monocytes # (Manual) 0.3 k/uL (0-1.0) 11/07/16 05:38 Eosinophils # (Manual) 0.1 k/uL (0-0.7) 11/07/16 05:38 Nucleated RBCs 0 /100 WBC (0-0) 11/07/16 05:38 Differential Comment 11/07/16 05:38 Manual Slide Review Performed 11/07/16 05:38 Poikilocytosis (manual Present 11/07/16 05:38 Anisocytosis Slight 11/07/16 05:38 Anisocytosis (manual) Present 11/07/16 05:38 Macrocytosis Slight 11/07/16 05:38 Ovalocytes Present 11/06/16 05:38 Fragmented RBCs Present 11/07/16 05:38 Sodium 137 mmol/L (137-145) 11/07/16 05:38 Potassium 3.2 mmol/L (3.5-5.1) L 11/07/16 05:38 Chloride 108 mmol/L (98-107) H 11/07/16 05:38 Carbon Dioxide 24 mmol/L (22-30) 11/07/16 05:38 Anion Gap 5 mmol/L 11/07/16 05:38 BUN 13 mg/dL (7-17) 11/07/16 05:38 Creatinine 1.07 mg/dL (0.52-1.04) H 11/07/16 05:38 Est GFR (MDRD) Af Amer 60 (>60 ml/min/1.73 sqM) 11/07/16 05:38 Est GFR (MDRD) Non-Af 49 (>60 ml/min/1.73 sqM) 11/07/16 05:38 Glucose 132 mg/dL (74-99) H 11/07/16 05:38 Plasma Lactic Acid Rodney 1.3 mmol/L (0.7-2.0) 11/04/16 17:37 Calcium 7.7 mg/dL (8.4-10.2) L 11/07/16 05:38 Magnesium 1.8 mg/dL (1.6-2.3) 11/07/16 05:38 Total Bilirubin 1.4 mg/dL (0.2-1.3) H 11/06/16 05:38 Conjugated Bilirubin 0.0 mg/dL (0.0-0.3) 11/04/16 15:59 Unconjugated Bilirubin 1.1 mg/dL (0.0-1.1) 11/04/16 15:59 Delta Bilirubin 0.5 mg/dL (0.0-0.2) H 11/04/16 15:59 AST 10 U/L (14-36) L 11/06/16 05:38 ALT 37 U/L (9-52) 11/06/16 05:38 Alkaline Phosphatase 46 U/L (38-126) 11/06/16 05:38 Total Creatine Kinase <20 U/L (30-135) L 11/04/16 22:40 CK-MB (CK-2) <0.2 ng/mL (0.0-2.4) 11/04/16 22:40 CK-MB (CK-2) Rel Index 11/04/16 22:40 Troponin I 0.051 ng/mL (0.000-0.034) H* 11/04/16 22:40 Total Protein 3.6 g/dL (6.3-8.2) L 11/06/16 05:38 Albumin 1.8 g/dL (3.5-5.0) L 11/06/16 05:38 Triglycerides 45 mg/dL (<150) 11/05/16 05:43 Cholesterol <50 mg/dL (<200) 11/05/16 05:43 LDL Cholesterol, Calc 8 mg/dL (0-99) 11/05/16 05:43 HDL Cholesterol 33 mg/dL (40-60) L 11/05/16 05:43 TSH 0.951 mIU/L (0.465-4.680) 11/05/16 05:43 Free T4 1.69 ng/dL (0.78-2.19) 11/05/16 05:43 Urine Color Yellow 11/05/16 01:24 Urine Appearance Clear (Clear) 11/05/16 01:24 Urine pH 5.5 (5.0-8.0) 11/05/16 01:24 Ur Specific Dodge 1.018 (1.001-1.035) 11/05/16 01:24 Urine Protein Negative (Negative) 11/05/16 01:24 Urine Glucose (UA) Negative (Negative) 11/05/16 01:24 Urine Ketones Negative (Negative) 11/05/16 01:24 Urine Blood Trace (Negative) H 11/05/16 01:24 Urine Nitrate Positive (Negative) H 11/05/16 01:24 Urine Bilirubin Negative (Negative) 11/05/16 01:24 Urine Urobilinogen <2.0 mg/dL (<2.0) 11/05/16 01:24 Ur Leukocyte Esterase Negative (Negative) 11/05/16 01:24 Urine RBC 1 /hpf (0-5) 11/05/16 01:24 Urine WBC 3 /hpf (0-5) 11/05/16 01:24 Ur Squamous Epith Cells 2 /hpf (0-4) 11/05/16 01:24 Urine Bacteria Many /hpf (None) H 11/05/16 01:24 Vancomycin Trough 15.5 ug/mL 11/06/16 19:11 Influenza Type A RNA Not Detected (Not Detectd) 11/04/16 15:04 Influenza Type B (PCR) Not Detected (Not Detectd) 11/04/16 15:04 Blood Type A Positive 11/04/16 17:37 Blood Type Recheck No 11/04/16 17:37 Antibody Screen NEGATIVE 11/04/16 17:37 Crossmatch See Detail 11/04/16 17:37 Transfuse Platelets 11/05/16 11/05/16 08:47 Spec Expiration Date 11/07/2016 - 1310 11/04/16 17:37 Microbiology 11/04/16 15:59 Blood Blood Culture - Preliminary No Growth after 72 hours 11/05/16 01:24 Urine,Clean Catch Urine Culture - Final Assessment and Plan (1) Febrile neutropenia Narrative/Plan: Pleasant 81-year-old female who is status post recycles of R CHOP which was converted to RCEO P presents to hospital with febrile neutropenia associated with significant cardiac dysrhythmia. She's been treated with amiodarone as well as diltiazem drip. Her heart rate and rhythm have improved. She is definitely feeling better today. She is much less weak. His been up in the chair for 3 hours. With less weakness shortness of breath and discomfort. Overall feeling better today. Her neutropenia has now improved. Her absolute neutrophil count is now 0.6 the white blood cell count of 1.1. Cultures remain negative. Doing well with current antibiotic therapy. The fever has resolved. . This time continue antibiotic therapy without enhancement with the improvement of her fever and negative cultures. If she continues to have no fever and white count continues to improve she may be transitioned to a course of oral antibiotic therapy with levofloxacin to complete 1 week of therapy Status: Acute (2) Diffuse large B-cell lymphoma Status: Chronic
--- NOTE | 2016-11-07 21:57 | P.PN ---
Subjective Principal diagnosis: Febrile neutropenia, pancytopenia The pt is still weak, but feels better overall. No f/c/n/v/chest pain. STUART is still significant Objective - Vital Signs Vital signs: Vital Signs Temp 99.4 F 11/07/16 20:00 Pulse 119 H 11/07/16 20:00 Resp 16 11/07/16 20:00 BP 100/58 11/07/16 20:00 Pulse Ox 99 11/07/16 20:00 Intake & Output 11/07/16 11/07/16 11/08/16 06:59 18:59 06:59 Intake Total 610 610 Output Total 800 300 Balance -190 610 -300 Weight 87.6 kg Intake: IV 610 610 0.9% NS @ 20 mL/hr 80 160 Diltiazem 125 mg In 80 Sodium Chloride 0.9% 100 ml @ 5 MG/HR 5 mls/hr IV .Q24H JOHANNY Rx#:[id number] Magnesium Sulfate-D5w Pmx 100 1 gm In Dextrose/Water 1 100ml.bag @ 100 mls/hr IVPB Q1H JOHANNY Rx#: [id number] Meropenem 1 gm In Sodium 100 200 Chloride 0.9% 100 ml @ 200 mls/hr IVPB Q8HR JOHANNY Rx#:[id number] Vancomycin 1,500 mg In 250 250 Sodium Chloride 0.9% 250 ml @ 125 mls/hr IVPB Q16H JOHANNY Rx#:[id number] Output: Urine 600 300 Stool 200 Other: Voiding Method Bedside Commode Bedside Commode # Voids 1 # Bowel Movements 1 - Constitutional General appearance: Present: no acute distress - EENT Eyes: Present: PERRLA ENT: Present: hearing grossly normal, normal oropharynx - Respiratory Respiratory: bilateral: CTA - Cardiovascular Rhythm: irregularly irregular Heart sounds: normal: S1, S2 - Gastrointestinal General gastrointestinal: Present: normal bowel sounds, soft - Integumentary Integumentary: Present: normal - Neurologic Neurologic: Present: CNII-XII intact - Musculoskeletal Musculoskeletal: Present: generalized weakness, strength equal bilaterally - Psychiatric Psychiatric: Present: A&O x's 3, appropriate affect - Labs CBC & Chem 7: 11/07/16 05:38 11/07/16 05:38 Labs: Abnormal Lab Results - Last 24 Hours (Table) 11/07/16 11/07/16 Range/Units 05:38 05:38 WBC 1.1 L* (3.8-10.6) k/uL RBC 2.44 L (3.80-5.40) m/uL Hgb 7.9 L (11.4-16.0) gm/dL Hct 23.9 L (34.0-46.0) % RDW 17.6 H (11.5-15.5) % Plt Count 14 L* D (150-450) k/uL Neutrophils # (Manual) 0.6 L (1.3-7.7) k/uL Lymphocytes # (Manual) 0.2 L (1.0-4.8) k/uL Potassium 3.2 L (3.5-5.1) mmol/L Chloride 108 H (98-107) mmol/L Creatinine 1.07 H (0.52-1.04) mg/dL Glucose 132 H (74-99) mg/dL Calcium 7.7 L (8.4-10.2) mg/dL Microbiology - Last 24 Hours (Table) 11/04/16 15:59 Blood Culture - Preliminary Blood No Growth after 72 hours Assessment and Plan (1) Febrile neutropenia Narrative/Plan: Fever has resolved. WBC is improving with Neulasta , and is 1.1 today. Cultures remain negative. Continue broad spectrum antibiotics till WBC recovers Status: Acute (2) Pancytopenia Narrative/Plan: Counts are acceptable, with no need for transfusion today Status: Acute (3) Atrial flutter with rapid ventricular response Narrative/Plan: Rate control is improved. Case d/w Cardiology. Anticoagulation/anti plt agents will not be resumed until plt counts are more stable Status: Acute (4) Diffuse large B-cell lymphoma Narrative/Plan: She will need dose reduction with her next cycle , given hematologic toxicities noted this admission Status: Chronic
[2016-11-08] MEDS: MEROPENEM 1 GM in SODIUM CHLORIDE 0.9% 100 ML IVPB SCH ×3 (00:02→20:46)
[2016-11-08] MEDS: VANCOMYCIN 1,500 MG in SODIUM CHLORIDE 0.9% 250 ML IVPB SCH (03:37)
[2016-11-08] MEDS: HYDROcodone/APAP 5-325MG 1 EACH TAB PO PRN (03:37)
[2016-11-08 06:32] LABS: Calcium 7.8 mg/dL (8.4-10.2); Magnesium 1.6 mg/dL (1.6-2.3); Potassium 4.1 mmol/L (3.5-5.1)
[2016-11-08 06:56] LABS: Anisocytosis Slight; CH 31.5; CHCM 31.7; HCT 25.7 % (34.0-46.0); HDW 3.03; HGB 8.3 gm/dL (11.4-16.0); Hypochromasia Slight; MCH 32.2 pg (25.0-35.0); MCHC 32.2 g/dL (31.0-37.0); MCV 99.8 fL (80.0-100.0); Macrocytosis Slight; Mean Platelet Volume 10.4; RBC 2.58 m/uL (3.80-5.40); RDW 17.5 % (11.5-15.5); WBC 2.7 k/uL (3.8-10.6); WBC (Perox) 2.83
[2016-11-08] MEDS: AMIODARONE 200 MG TAB PO SCH ×3 (08:11→20:48)
[2016-11-08] MEDS: ATORVASTATIN 20 MG TAB PO SCH (08:11)
[2016-11-08] MEDS: METOPROLOL TARTRATE 50 MG TAB PO SCH ×2 (08:12→20:07)
[2016-11-08 09:01] LABS: Add Differential Manual Differential
[2016-11-08 09:06] LABS: Band Neutrophils % 35.5 %; Myelocytes % 0.5 %; Nucleated Red Blood Cells 0 /100 WBC (0-0); Total Cells Counted 200
[2016-11-08 09:08] LABS: Ovalocytes Present
--- NOTE | 2016-11-08 10:16 | CDI ---
In responding to this query, please exercise your independent professional judgment. The [facility] Coding Staff and Clinical Documentation Specialists appreciate your assistance in clarifying documentation, maintaining compliance with coding guidelines, accurately documenting patients condition and capturing severity of illness. The fact that a question is asked does not imply that any particular answer is desired or expected. Communication forms are a method of clarifying documentation and are not made part of the Legal Health Record. Thank you in advance for your clarification. Last Revision, August 2015 Melissa Bonner [address] [place] [address] Documentation Clarification Form Date: 11/08/2016 10:04:00 AM From: Aydee Dias RN CCDS Admit Date: 11/04/2016 1:49:00 PM Patient Name: Amparo Mclain Visit Number: [id number] Dr. Melissa Davis History/Risk Factors: Chronic diffuse B-cell lymphoma, atrial fib, HTN Clinical Indicators: 11/07 Cardiology Progress Note: "Gary inhibitor has been discontinued because of hypotension." 09/30/16 Patients baseline BUN/CR/GFR: 11/.8/>60 Patient presents with a BUN: 28/25/15/13/13 CR: .86/.91/.82/1.07/1.2 GFR: >60/60/52 Treatment: Consults: Cardiology, Pulmonary, Oncology, ID IVF: 1L IVF Bolus In order to capture the severity of condition, please clarify if the condition signifies: Acute renal failure Please specify (if known): Cortical, Medullary, or Tubular Necrosis? Acute kidney injury Acute on chronic renal failure Chronic renal failure, please stage Chronic kidney disease (CKD) and please stage Stage 1 GFR >90 Stage 2 GFR 60-89 Stage 3 GFR 30-59 Stage 4 GFR 15-29 Stage 5 GFR <15 ESRD Unable to determine Other, specify Please document in your progress notes and discharge summary in order to capture severity of illness and risk of mortality. Include clinical findings that support your diagnosis. FYI: Press F11 to launch patient chart. Place X here if this finding has no clinical significance, is not applicable or if you are not able to provide any additional documentation. Patient has UMBERTO not CKD MTDD
[2016-11-08] MEDS: MULTIVITAMINS, THERA 1 EACH TAB PO SCH (11:24)
[2016-11-08 12:06] VITALS: BMI 30.1
--- NOTE | 2016-11-08 14:22 | P.PN ---
Subjective Date of service 11/07/2016 Progress note being dictated for Dr. Davis. Interval history: This is an 81-year-old female admitted with atrial fibrillation, uncontrolled, febrile neutropenia, severe pancytopenia and multiple other medical issues in a patient with lymphoma, on chemotherapy. Maintained on Merrem as per infectious disease. Cardizem drip discontinued as patient became hypotensive, now on oral beta cassandra and amiodarone. Telemetry reporting A. fib/flutter, heart rates ranging from 90s to 120s. WBC 1.1, platelets 14, hypokalemic with potassium at 3.2. Renal function mildly worsened. Diet intake improving, denies nausea vomiting or diarrhea. Denies any focal deficits, lightheadedness or dizziness. Denies chest pain, palpitations or increasing shortness of breath. Generalized weakness slowly improving. Objective - Vital Signs Vital signs: Vital Signs Temp 96.3 F L 11/07/16 11:58 Pulse 120 H 11/07/16 11:58 Resp 18 11/07/16 11:58 BP 108/54 11/07/16 11:58 Pulse Ox 99 11/07/16 11:58 Intake & Output 11/06/16 11/07/16 11/07/16 18:59 06:59 18:59 Intake Total 200 610 Output Total 875 800 Balance -675 -190 Weight 87.6 kg Intake: IV 610 0.9% NS @ 20 mL/hr 80 Diltiazem 125 mg In 80 Sodium Chloride 0.9% 100 ml @ 5 MG/HR 5 mls/hr IV .Q24H JOHANNY Rx#:[id number] Magnesium Sulfate-D5w Pmx 100 1 gm In Dextrose/Water 1 100ml.bag @ 100 mls/hr IVPB Q1H JOHANNY Rx#: [id number] Meropenem 1 gm In Sodium 100 Chloride 0.9% 100 ml @ 200 mls/hr IVPB Q8HR JOHANNY Rx#:[id number] Vancomycin 1,500 mg In 250 Sodium Chloride 0.9% 250 ml @ 125 mls/hr IVPB Q16H JOHANNY Rx#:[id number] Oral 200 Output: Urine 375 600 Stool 200 Urine/Stool Mix 500 Other: Voiding Method Bedpan Bedside Commode # Voids 1 1 # Bowel Movements 1 - Exam PHYSICAL EXAM: VITAL SIGNS: As above GENERAL: [Sitting up in bed, no acute distress] HEENT: [Pupils equal conjunctiva normal.] NECK: [Supple, no JVD] RESPIRATORY EFFORT:[Normal] LUNGS: [Fair air entry, clear, no crackles no wheezing no rhonchi. Rate upper anterior chest port present.] CARDIOVASCULAR[irregular, tachycardic, no murmurs rubs or gallops appreciated. Improving edema] GI: [Abdomen soft, nontender, nondistended, no organomegaly, positive bowel sounds.] PSYCH: [Alert and oriented -3, mood and affect normal.] NEURO: No focal deficits Microbiology 11/04/16 15:59 Blood Blood Culture - Preliminary No Growth after 72 hours 11/05/16 01:24 Urine,Clean Catch Urine Culture - Final - Labs CBC & Chem 7: 11/08/16 05:33 11/08/16 05:33 Labs: Abnormal Lab Results - Last 24 Hours (Table) 11/07/16 11/07/16 Range/Units 05:38 05:38 WBC 1.1 L* (3.8-10.6) k/uL RBC 2.44 L (3.80-5.40) m/uL Hgb 7.9 L (11.4-16.0) gm/dL Hct 23.9 L (34.0-46.0) % RDW 17.6 H (11.5-15.5) % Plt Count 14 L* D (150-450) k/uL Neutrophils # (Manual) 0.6 L (1.3-7.7) k/uL Lymphocytes # (Manual) 0.2 L (1.0-4.8) k/uL Potassium 3.2 L (3.5-5.1) mmol/L Chloride 108 H (98-107) mmol/L Creatinine 1.07 H (0.52-1.04) mg/dL Glucose 132 H (74-99) mg/dL Calcium 7.7 L (8.4-10.2) mg/dL Microbiology - Last 24 Hours (Table) 11/04/16 15:59 Blood Culture - Preliminary Blood No Growth after 48 hours 11/05/16 01:24 Urine Culture - Final Urine,Clean Catch Assessment and Plan Plan: 1. Atrial fibrillation, uncontrolled. 2. Febrile neutropenia, fevers resolved]. 3. [Severe pancytopenia secondary to chemotherapy for lymphoma]. 4. [Hypertension]. 5. [Hyperlipidemia. 6. [Hypokalemia]. 7. [Hypomagnesemia Plan: Continue on current medication regime , antibiotics, monitoring and symptomatic treatment. Antiarrhythmics as per cardiology. Potassium supplements ordered. Close monitoring of electrolytes and renal function as mildly worsened today, repeat labs in a.m. further recommendations to follow. Prognosis guarded given multiple complex medical issues. The impression and plan of care has been dictated as directed. : I performed a H&P examination of this patient and discussed the same with the dictator. I agree with the dictator's note. Any additional findings/opinions/ etc. will be noted.
[2016-11-08] MEDS ORDERED: SODIUM CHLORIDE 0.9% 1,000 ML IV ONE (14:34)
--- NOTE | 2016-11-08 14:38 | P.PN ---
Subjective Date of service 11/08/2016 Progress note being dictated for Dr. Davsi. Interval history: This is an 81-year-old female admitted with atrial fibrillation, uncontrolled, febrile neutropenia, severe pancytopenia and multiple other medical issues in a patient with lymphoma, on chemotherapy. Antibiotics as per infectious disease. Remains afebrile. Telemetry reporting atrial fibrillation/A flutter with heart rates up to 130s. Renal function continues to worsen, creatinine 1.20. Significant improvement in WBC, up to 2.7. Slept well, Feels better today, more energetic. Consuming 50-75% of meals with no nausea, vomiting or diarrhea. Mean arterial pressures ranging from 68- 84. Denies chest pain, palpitations. Objective - Vital Signs Vital signs: Vital Signs Temp 98.0 F 11/08/16 11:10 Pulse 124 H 11/08/16 11:10 Resp 18 11/08/16 11:10 BP 128/62 11/08/16 11:10 Pulse Ox 93 L 11/08/16 11:10 Intake & Output 11/07/16 11/08/16 11/08/16 18:59 06:59 18:59 Intake Total 610 350 340 Output Total 1250 Balance 610 -900 340 Weight 87.3 kg 87.3 kg Intake: IV 610 350 0.9% NS @ 20 mL/hr 160 Meropenem 1 gm In Sodium 200 100 Chloride 0.9% 100 ml @ 200 mls/hr IVPB Q8HR JOHANNY Rx#:[id number] Vancomycin 1,500 mg In 250 250 Sodium Chloride 0.9% 250 ml @ 125 mls/hr IVPB Q16H JOHANNY Rx#:[id number] Oral 340 Output: Urine 1250 Other: Voiding Method Bedside Commode Bedside Commode # Voids 1 # Bowel Movements 1 - Exam PHYSICAL EXAM: VITAL SIGNS: As above GENERAL: [Sitting up in chair, no acute distress] HEENT: [Pupils equal conjunctiva normal.] NECK: [Supple, no JVD] RESPIRATORY EFFORT:[Normal] LUNGS: [Fair air entry, clear, no crackles no wheezing no rhonchi. Rate upper anterior chest port present.] CARDIOVASCULAR[irregular, tachycardic, no murmurs rubs or gallops appreciated. Feet Elevated, Improving edema] GI: [Abdomen soft, nontender, nondistended, no organomegaly, positive bowel sounds.] PSYCH: [Alert and oriented -3, mood and affect normal.] NEURO: No focal deficits Microbiology 11/04/16 15:59 Blood Blood Culture - Preliminary No Growth after 72 hours 11/05/16 01:24 Urine,Clean Catch Urine Culture - Final - Labs CBC & Chem 7: 11/08/16 05:33 11/08/16 05:33 Labs: Abnormal Lab Results - Last 24 Hours (Table) 11/08/16 11/08/16 Range/Units 05:33 05:33 WBC 2.7 L (3.8-10.6) k/uL RBC 2.58 L (3.80-5.40) m/uL Hgb 8.3 L (11.4-16.0) gm/dL Hct 25.7 L (34.0-46.0) % RDW 17.5 H (11.5-15.5) % Plt Count 12 L* (150-450) k/uL Lymphocytes # (Manual) 0.1 L (1.0-4.8) k/uL Sodium 134 L (137-145) mmol/L Creatinine 1.20 H (0.52-1.04) mg/dL Glucose 138 H (74-99) mg/dL Calcium 7.8 L (8.4-10.2) mg/dL Microbiology - Last 24 Hours (Table) 11/04/16 15:59 Blood Culture - Preliminary Blood No Growth after 72 hours Assessment and Plan Plan: 1. Persistent Atrial fibrillation with RVR, uncontrolled. In a patient with history of proximal atrial fibrillation 2. Febrile neutropenia, fevers resolved]. 3. [Severe pancytopenia secondary to chemotherapy for large B cell lymphoma]. 4. [Hypertension]. 5. [Hyperlipidemia. 6. [Hypokalemia]. 7. [Hypomagnesemia 8. Acute renal failure, diuretic induced. Plan: Continue on current medication regime , antibiotics, beta cassandra, amiodarone, monitoring and symptomatic treatment. Close monitoring of electrolytes and renal function as mildly worsened today, repeat labs in a.m. 1 L fluid bolus to infuse slowly at 100 MLS per hour as patient dry. Follow-up chest x-ray in a.m. compression stockings .further recommendations to follow. Prognosis guarded given multiple complex medical issues. The impression and plan of care has been dictated as directed. : I performed a H&P examination of this patient and discussed the same with the dictator. I agree with the dictator's note. Any additional findings/opinions/ etc. will be noted.
[2016-11-08] MEDS ORDERED: MAGNESIUM SULFATE-D5W PMX 1 GM in DEXTROSE/WATER 1 100ML.BAG IVPB ONE (15:00)
--- NOTE | 2016-11-08 15:12 | P.PN ---
Subjective Principal diagnosis: Afib with RVR, anemia This is an 81-year-old female with a known history of hypertension, hyperlipidemia, lymphoma currently undergoing chemotherapy, paroxysmal atrial fibrillation onset of a sudden. He presented to the hospital with symptoms of significant weakness. She denies any complaints of palpitations however did have some mild shortness of breath. On admission the patient was found to be in atrial fibrillation with rapid ventricular response and was then transferred here from [facility]. Rate control has been fluctuating anywhere from 90 to 130s to 140s with activities. Upon examination today, patient is sitting up in a chair at the bedside. She denies complaints of shortness of breath, palpitations, chest discomfort, dizziness, lightheadedness or syncope. Her main complaint today is of lower extremity edema. She is currently on amiodarone 200 mg by mouth 3 times a day as well as metoprolol titrate 50 mg by mouth twice a day. Objective - Vital Signs Vital signs: Vital Signs Temp 98.0 F 11/08/16 11:10 Pulse 124 H 11/08/16 11:10 Resp 18 11/08/16 11:10 BP 128/62 11/08/16 11:10 Pulse Ox 93 L 11/08/16 11:10 Intake & Output 11/07/16 11/08/16 11/08/16 18:59 06:59 18:59 Intake Total 610 350 784 Output Total 1250 Balance 610 -900 784 Weight 87.3 kg 87.3 kg Intake: IV 610 350 0.9% NS @ 20 mL/hr 160 Meropenem 1 gm In Sodium 200 100 Chloride 0.9% 100 ml @ 200 mls/hr IVPB Q8HR JOHANNY Rx#:[id number] Vancomycin 1,500 mg In 250 250 Sodium Chloride 0.9% 250 ml @ 125 mls/hr IVPB Q16H JOHANNY Rx#:[id number] Oral 784 Output: Urine 1250 Other: Voiding Method Bedside Commode Bedside Commode # Voids 1 # Bowel Movements 1 - Exam PHYSICAL EXAMINATION: HEENT: Head is atraumatic, normocephalic. Pupils equal, round. Neck is supple. There is no elevated jugular venous pressure. HEART EXAMINATION: Heart sounds irregular regular, S1 and S2 normal. CHEST EXAMINATION: Lungs are clear to auscultation and precussion. No chest wall tenderness is noted on palpation or with deep breathing. Mediport noted to right upper chest. ABDOMEN: Soft, nontender. Bowel sounds are heard. No organomegaly noted. EXTREMITIES: 2+ peripheral pulses with evidence of 2+ peripheral edema and no calf tenderness noted. NEUROLOGIC patient is awake, alert and oriented x3. . - Labs CBC & Chem 7: 11/08/16 05:33 11/08/16 05:33 Labs: Abnormal Lab Results - Last 24 Hours (Table) 11/08/16 11/08/16 Range/Units 05:33 05:33 WBC 2.7 L (3.8-10.6) k/uL RBC 2.58 L (3.80-5.40) m/uL Hgb 8.3 L (11.4-16.0) gm/dL Hct 25.7 L (34.0-46.0) % RDW 17.5 H (11.5-15.5) % Plt Count 12 L* (150-450) k/uL Lymphocytes # (Manual) 0.1 L (1.0-4.8) k/uL Sodium 134 L (137-145) mmol/L Creatinine 1.20 H (0.52-1.04) mg/dL Glucose 138 H (74-99) mg/dL Calcium 7.8 L (8.4-10.2) mg/dL Microbiology - Last 24 Hours (Table) 11/04/16 15:59 Blood Culture - Preliminary Blood No Growth after 72 hours Assessment and Plan Plan: Assessment and plan #1 atrial fibrillation with rapid ventricular response, with history of paroxysmal atrial fibrillation #2 febrile neutropenia, weakness, possible sepsis #3 diffuse large B cell lymphoma, on chemotherapy #4 hypertension #5 hyperlipidemia #6 pancytopenia From Cardiology's standpoint, medications were reviewed we will continue the same. He is here to hold Savaysa due to low platelet count. Continue to follow the patient and provide further recommendations accordingly. GMAT TUTOR note has been reviewed, I agree with a documented findings and plan of care. Patient was seen and examined.
[2016-11-08] MEDS: MELATONIN 3 MG TABLET PO SCH (20:07)
--- NOTE | 2016-11-08 21:17 | P.PN ---
Subjective Principal diagnosis: Febrile neutropenia This is an 81-year-old female. She is well-known to ID service as she was seen during a hospitalization in April 2016 at which time she presented with left jaw swelling at the left parotid area with tenderness and surrounding erythema. There was concern for phlegmon. She was treated with Augmentin at the time of discharge and had follow-up with Dr. 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 She underwent chemotherapy in August for 2 cycles of R CHOP. She was hospitalized in September for atrial flutter and subsequently chemotherapy was changed to our COPD and patient received a dose of Neulasta on October 31. Patient presented to [facility] complaining of weakness. She was initially at [facility] and transferred. She was found to be in atrial fibrillation with rapid ventricular response. Patient was initially started on Cardizem drip which is been changed amiodarone drip. She has been tachycardic with a temperature of 102.1. Patient is severely pancytopenic with WBC currently 0.2, hemoglobin 8.5 up from 6.8 and platelet count 8. She is status post 2 units packed RBCs and platelets. Cardiology and pulmonary medicine are both on consult. Patient does state that she had a little diarrhea at home and one in the emergency center. She states her weakness is improved this morning but not back to baseline. She states she has also had significant lower extremity edema for which she has been on diuretic prior to admission. Patient is feeling somewhat better today. Her fevers have resolved She's not had any chills or rigors. Edema is improving. She's less short of breath. Heart rate is improved but still irregular Objective - Vital Signs Vital signs: Vital Signs Temp 101.3 F H 11/08/16 20:54 Pulse 129 H 11/08/16 20:54 Resp 16 11/08/16 20:54 BP 114/58 11/08/16 20:54 Pulse Ox 98 11/08/16 20:54 Intake & Output 11/08/16 11/08/16 11/09/16 06:59 18:59 06:59 Intake Total 350 1171 Output Total 1250 100 100 Balance -900 1071 -100 Weight 87.3 kg 87.3 kg Intake: IV 350 Meropenem 1 gm In Sodium 100 Chloride 0.9% 100 ml @ 200 mls/hr IVPB Q8HR JOHANNY Rx#:[id number] Vancomycin 1,500 mg In 250 Sodium Chloride 0.9% 250 ml @ 125 mls/hr IVPB Q16H JOHANNY Rx#:[id number] Oral 1171 Output: Urine 1250 Stool 100 100 Other: Voiding Method Bedside Commode Bedside Commode Bedside Commode # Voids 1 # Bowel Movements 1 - Exam Gen: This is a 81-year-old female. She is resting in bed and appears to be in no acute distress. Feeling better today HEENT: Head is atraumatic, normocephalic. Pupils equal, round. Sclerae is anicteric. Conjunctiva slightly pale. Mucous members of the mouth are dry. No thrush noted. NECK: Supple. No JVD. No lymphadenopathy. No thyromegaly. LUNGS: A few scattered rhonchi. No wheezes. No intercostal retractions. HEART: Irregular rate and rhythm. No murmur. Port noted to right upper anterior chest wall with no surrounding tenderness, erythema or edema. ABDOMEN: Soft. Bowel sounds are present. No masses. No tenderness. EXTREMITIES: 2+ bilateral pedal edema. Dorsalis pedis +2 bilaterally. stockings on today with some improvement NEUROLOGICAL: Patient is awake, alert and oriented x3. - Labs CBC & Chem 7: 11/08/16 05:33 11/08/16 05:33 Labs: Abnormal Lab Results - Last 24 Hours (Table) 11/08/16 11/08/16 Range/Units 05:33 05:33 WBC 2.7 L (3.8-10.6) k/uL RBC 2.58 L (3.80-5.40) m/uL Hgb 8.3 L (11.4-16.0) gm/dL Hct 25.7 L (34.0-46.0) % RDW 17.5 H (11.5-15.5) % Plt Count 12 L* (150-450) k/uL Lymphocytes # (Manual) 0.1 L (1.0-4.8) k/uL Sodium 134 L (137-145) mmol/L Creatinine 1.20 H (0.52-1.04) mg/dL Glucose 138 H (74-99) mg/dL Calcium 7.8 L (8.4-10.2) mg/dL Microbiology - Last 24 Hours (Table) 11/04/16 15:59 Blood Culture - Preliminary Blood No Growth after 96 hours Laboratory Results WBC 2.7 k/uL (3.8-10.6) L 11/08/16 05:33 RBC 2.58 m/uL (3.80-5.40) L 11/08/16 05:33 Hgb 8.3 gm/dL (11.4-16.0) L 11/08/16 05:33 Hct 25.7 % (34.0-46.0) L 11/08/16 05:33 MCV 99.8 fL (80.0-100.0) 11/08/16 05:33 MCH 32.2 pg (25.0-35.0) 11/08/16 05:33 MCHC 32.2 g/dL (31.0-37.0) 11/08/16 05:33 RDW 17.5 % (11.5-15.5) H 11/08/16 05:33 Plt Count 12 k/uL (150-450) L* 11/08/16 05:33 Neutrophils % (Manual) 46.0 % 11/08/16 05:33 Band Neutrophils % 35.5 % 11/08/16 05:33 Lymphocytes % (Manual) 5.0 % 11/08/16 05:33 Monocytes % (Manual) 8.5 % 11/08/16 05:33 Eosinophils % (Manual) 4.5 % 11/08/16 05:33 Myelocytes % 0.5 % 11/08/16 05:33 Neutrophils # (Manual) 2.2 k/uL (1.3-7.7) 11/08/16 05:33 Lymphocytes # (Manual) 0.1 k/uL (1.0-4.8) L 11/08/16 05:33 Monocytes # (Manual) 0.2 k/uL (0-1.0) 11/08/16 05:33 Eosinophils # (Manual) 0.1 k/uL (0-0.7) 11/08/16 05:33 Nucleated RBCs 0 /100 WBC (0-0) 11/08/16 05:33 Differential Comment 11/07/16 05:38 Manual Slide Review Performed 11/07/16 05:38 Hypochromasia Slight 11/08/16 05:33 Poikilocytosis (manual Present 11/08/16 05:33 Anisocytosis Slight 11/08/16 05:33 Anisocytosis (manual) Present 11/07/16 05:38 Macrocytosis Slight 11/08/16 05:33 Ovalocytes Present 11/08/16 05:33 Fragmented RBCs Present 11/08/16 05:33 Sodium 134 mmol/L (137-145) L 11/08/16 05:33 Potassium 4.1 mmol/L (3.5-5.1) 11/08/16 05:33 Chloride 107 mmol/L (98-107) 11/08/16 05:33 Carbon Dioxide 22 mmol/L (22-30) 11/08/16 05:33 Anion Gap 5 mmol/L 11/08/16 05:33 BUN 13 mg/dL (7-17) 11/08/16 05:33 Creatinine 1.20 mg/dL (0.52-1.04) H 11/08/16 05:33 Est GFR (MDRD) Af Amer 52 (>60 ml/min/1.73 sqM) 11/08/16 05:33 Est GFR (MDRD) Non-Af 43 (>60 ml/min/1.73 sqM) 11/08/16 05:33 Glucose 138 mg/dL (74-99) H 11/08/16 05:33 Plasma Lactic Acid Rodney 1.3 mmol/L (0.7-2.0) 11/04/16 17:37 Calcium 7.8 mg/dL (8.4-10.2) L 11/08/16 05:33 Magnesium 1.6 mg/dL (1.6-2.3) 11/08/16 05:33 Total Bilirubin 1.4 mg/dL (0.2-1.3) H 11/06/16 05:38 Conjugated Bilirubin 0.0 mg/dL (0.0-0.3) 11/04/16 15:59 Unconjugated Bilirubin 1.1 mg/dL (0.0-1.1) 11/04/16 15:59 Delta Bilirubin 0.5 mg/dL (0.0-0.2) H 11/04/16 15:59 AST 10 U/L (14-36) L 11/06/16 05:38 ALT 37 U/L (9-52) 11/06/16 05:38 Alkaline Phosphatase 46 U/L (38-126) 11/06/16 05:38 Total Creatine Kinase <20 U/L (30-135) L 11/04/16 22:40 CK-MB (CK-2) <0.2 ng/mL (0.0-2.4) 11/04/16 22:40 CK-MB (CK-2) Rel Index 11/04/16 22:40 Troponin I 0.051 ng/mL (0.000-0.034) H* 11/04/16 22:40 Total Protein 3.6 g/dL (6.3-8.2) L 11/06/16 05:38 Albumin 1.8 g/dL (3.5-5.0) L 11/06/16 05:38 Triglycerides 45 mg/dL (<150) 11/05/16 05:43 Cholesterol <50 mg/dL (<200) 11/05/16 05:43 LDL Cholesterol, Calc 8 mg/dL (0-99) 11/05/16 05:43 HDL Cholesterol 33 mg/dL (40-60) L 11/05/16 05:43 TSH 0.951 mIU/L (0.465-4.680) 11/05/16 05:43 Free T4 1.69 ng/dL (0.78-2.19) 11/05/16 05:43 Urine Color Yellow 11/05/16 01:24 Urine Appearance Clear (Clear) 11/05/16 01:24 Urine pH 5.5 (5.0-8.0) 11/05/16 01:24 Ur Specific [place] 1.018 (1.001-1.035) 11/05/16 01:24 Urine Protein Negative (Negative) 11/05/16 01:24 Urine Glucose (UA) Negative (Negative) 11/05/16 01:24 Urine Ketones Negative (Negative) 11/05/16 01:24 Urine Blood Trace (Negative) H 11/05/16 01:24 Urine Nitrate Positive (Negative) H 11/05/16 01:24 Urine Bilirubin Negative (Negative) 11/05/16 01:24 Urine Urobilinogen <2.0 mg/dL (<2.0) 11/05/16 01:24 Ur Leukocyte Esterase Negative (Negative) 11/05/16 01:24 Urine RBC 1 /hpf (0-5) 11/05/16 01:24 Urine WBC 3 /hpf (0-5) 11/05/16 01:24 Ur Squamous Epith Cells 2 /hpf (0-4) 11/05/16 01:24 Urine Bacteria Many /hpf (None) H 11/05/16 01:24 Vancomycin Trough 15.5 ug/mL 11/06/16 19:11 Influenza Type A RNA Not Detected (Not Detectd) 11/04/16 15:04 Influenza Type B (PCR) Not Detected (Not Detectd) 11/04/16 15:04 Blood Type A Positive 11/04/16 17:37 Blood Type Recheck No 11/04/16 17:37 Antibody Screen NEGATIVE 11/04/16 17:37 Crossmatch See Detail 11/04/16 17:37 Transfuse Platelets 11/05/16 11/05/16 08:47 Spec Expiration Date 11/07/2016 - 235811/04/16 17:37 Microbiology 11/04/16 15:59 Blood Blood Culture - Preliminary No Growth after 96 hours 11/05/16 01:24 Urine,Clean Catch Urine Culture - Final Assessment and Plan (1) Febrile neutropenia Narrative/Plan: Pleasant 81-year-old female who is status post recycles of R CHOP which was converted to RCEO P presents to hospital with febrile neutropenia associated with significant cardiac dysrhythmia. She's been treated with amiodarone as well as diltiazem drip. Her heart rate and rhythm have improved. She is definitely feeling better today. She is much less weak. His been up in the chair for 3 hours. With less weakness shortness of breath and discomfort. Overall feeling better today. Her neutropenia has now improved. Her absolute neutrophil count is now 2.2 the white blood cell count of 2.9. Cultures remain negative. Doing well with current antibiotic therapy. The fever has resolved. Overall felling better denies new problems today but still with tachycardia With the improved white blood cell count the antibiotics will be further altered , vancomycin discontinued If she continues to do well the meropenem will be discontinued also. and then transition to 3 days of oral antibiotic Status: Acute (2) Diffuse large B-cell lymphoma Status: Chronic
[2016-11-09] MEDS ORDERED: VANCOMYCIN 1,500 MG in SODIUM CHLORIDE 0.9% 250 ML IVPB SCH (06:00)
[2016-11-09] MEDS: HYDROcodone/APAP 5-325MG 1 EACH TAB PO PRN ×2 (06:04→21:52)
[2016-11-09 07:38] LABS: Anisocytosis Slight; Basophils % (A) 0 %; CH 31.7; CHCM 32.7; Eosinophils % (A) 1 %; HCT 24.6 % (34.0-46.0); HDW 3.19; HGB 8.1 gm/dL (11.4-16.0); Large Platelets Flag Marked; Luc % (Auto) 2; Lymphocytes # (A) 0.1 k/uL (1.0-4.8); Lymphocytes % (A) 3 %; MCH 32.1 pg (25.0-35.0); MCV 97.5 fL (80.0-100.0); Macrocytosis Slight; Mean Platelet Volume 12.9; Monocytes # (A) 0.4 k/uL (0-1.0); Monocytes % (A) 10 %; Neutrophils # (A) 3.5 k/uL (1.3-7.7); Neutrophils % (A) 83 %; RBC 2.52 m/uL (3.80-5.40); RDW 17.7 % (11.5-15.5); WBC 4.2 k/uL (3.8-10.6); WBC (Perox) 4.79
[2016-11-09 07:47] LABS: Calcium 7.9 mg/dL (8.4-10.2); Potassium 3.9 mmol/L (3.5-5.1)
--- NOTE | 2016-11-09 09:06 | XR ---
EXAMINATION TYPE: XR chest 2V DATE OF EXAM: 11/09/2016 9:00 AM COMPARISON: 11/04/2016 HISTORY: Lymphoma FINDINGS: Mediport catheter. Cardiomegaly stable. Small bilateral effusions and basilar infiltrate. No pneumoth orax. Arthropathy of the shoulders.. IMPRESSION: 1. Small bilateral pleural effusion and basilar infiltrate. Small amount of fluid in the minor fissur e. Correlate clinically to exclude mild central venous congestion.
[2016-11-09] MEDS: AMIODARONE 200 MG TAB PO SCH ×3 (09:55→21:54)
[2016-11-09] MEDS: METOPROLOL TARTRATE 50 MG TAB PO SCH ×3 (09:55→21:53)
[2016-11-09] MEDS: ATORVASTATIN 20 MG TAB PO SCH (09:55)
[2016-11-09] MEDS: MEROPENEM 1 GM in SODIUM CHLORIDE 0.9% 100 ML IVPB SCH (09:58)
[2016-11-09] MEDS: MULTIVITAMINS, THERA 1 EACH TAB PO SCH (12:26)
--- NOTE | 2016-11-09 14:08 | P.PN ---
Subjective Principal diagnosis: Afib with RVR, anemia This is an 81-year-old female with a known history of hypertension, hyperlipidemia, lymphoma currently undergoing chemotherapy, paroxysmal atrial fibrillation onset of a sudden. He presented to the hospital with symptoms of significant weakness. She denies any complaints of palpitations however did have some mild shortness of breath. On admission the patient was found to be in atrial fibrillation with rapid ventricular response and was then transferred here from [facility]. Rate control has been fluctuating anywhere from 90 to 130s to 140s with activities. Upon examination today, patient is sitting up in a chair at the bedside. She denies complaints of shortness of breath, palpitations, chest discomfort, dizziness, lightheadedness or syncope. Her main complaint today is of lower extremity edema. She is currently on amiodarone 200 mg by mouth 3 times a day as well as metoprolol titrate 50 mg by mouth twice a day. Her heart rate remains poorly controlled at this time. Objective - Vital Signs Vital signs: Vital Signs Temp 98.2 F 11/09/16 08:00 Pulse 129 H 11/09/16 08:00 Resp 18 11/09/16 08:00 BP 102/59 11/09/16 08:00 Pulse Ox 98 11/09/16 08:00 Intake & Output 11/08/16 11/09/16 11/09/16 18:59 06:59 18:59 Intake Total 1171 180 Output Total 350 550 400 Balance 821 -550 -220 Weight 87.3 kg 92.7 kg Intake: Oral 1171 180 Output: Urine 250 250 400 Stool 100 300 Other: Voiding Method Bedside Commode Bedside Commode # Voids 1 1 # Bowel Movements 1 - Exam PHYSICAL EXAMINATION: HEENT: Head is atraumatic, normocephalic. Pupils equal, round. Neck is supple. There is no elevated jugular venous pressure. HEART EXAMINATION: Heart sounds irregular regular, S1 and S2 normal. CHEST EXAMINATION: Lungs are clear to auscultation and precussion. No chest wall tenderness is noted on palpation or with deep breathing. Mediport noted to right upper chest. ABDOMEN: Soft, nontender. Bowel sounds are heard. No organomegaly noted. EXTREMITIES: 2+ peripheral pulses with evidence of 2+ peripheral edema and no calf tenderness noted. NEUROLOGIC patient is awake, alert and oriented x3. . - Labs CBC & Chem 7: 11/09/16 06:46 11/09/16 06:46 Labs: Abnormal Lab Results - Last 24 Hours (Table) 11/09/16 11/09/16 Range/Units 06:46 06:46 RBC 2.52 L (3.80-5.40) m/uL Hgb 8.1 L (11.4-16.0) gm/dL Hct 24.6 L (34.0-46.0) % RDW 17.7 H (11.5-15.5) % Plt Count 13 L* (150-450) k/uL Lymphocytes # 0.1 L (1.0-4.8) k/uL Sodium 133 L (137-145) mmol/L Creatinine 1.20 H (0.52-1.04) mg/dL Glucose 120 H (74-99) mg/dL Calcium 7.9 L (8.4-10.2) mg/dL Microbiology - Last 24 Hours (Table) 11/04/16 15:59 Blood Culture - Preliminary Blood No Growth after 96 hours Assessment and Plan Plan: Assessment and plan #1 atrial fibrillation with rapid ventricular response, with history of paroxysmal atrial fibrillation #2 febrile neutropenia, weakness, possible sepsis #3 diffuse large B cell lymphoma, on chemotherapy #4 hypertension #5 hyperlipidemia #6 pancytopenia From Cardiology's standpoint, medications were reviewed we will increase metoprolol to 50 mg by mouth 3 times a day. He is here to hold Savaysa due to low platelet count. We will continue to follow the patient and provide further recommendations accordingly. TANGLED YARN SPOOL STRAIGHTENER note has been reviewed, I agree with a documented findings and plan of care. Patient was seen and examined.
--- NOTE | 2016-11-09 16:43 | P.PN ---
Subjective Principal diagnosis: Febrile neutropenia This is an 81-year-old female. She is well-known to ID service as she was seen during a hospitalization in April 2016 at which time she presented with left jaw swelling at the left parotid area with tenderness and surrounding erythema. There was concern for phlegmon. She was treated with Augmentin at the time of discharge and had follow-up with Dr. 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 She underwent chemotherapy in August for 2 cycles of R CHOP. She was hospitalized in September for atrial flutter and subsequently chemotherapy was changed to our COPD and patient received a dose of Neulasta on October 31. Patient presented to [facility] complaining of weakness. She was initially at [facility] and transferred. She was found to be in atrial fibrillation with rapid ventricular response. Patient was initially started on Cardizem drip which is been changed amiodarone drip. She has been tachycardic with a temperature of 102.1. Patient is severely pancytopenic with WBC currently 0.2, hemoglobin 8.5 up from 6.8 and platelet count 8. She is status post 2 units packed RBCs and platelets. Cardiology and pulmonary medicine are both on consult. Patient does state that she had a little diarrhea at home and one in the emergency center. She states her weakness is improved this morning but not back to baseline. She states she has also had significant lower extremity edema for which she has been on diuretic prior to admission. Patient is feeling somewhat better today. Her fevers have resolved She's not had any chills or rigors. Edema is improving. She's less short of breath. Heart rate is still irregular and accelerated . Objective - Vital Signs Vital signs: Vital Signs Temp 98.2 F 11/09/16 08:00 Pulse 113 H 11/09/16 12:00 Resp 18 11/09/16 08:00 BP 104/63 11/09/16 12:00 Pulse Ox 96 11/09/16 12:00 Intake & Output 11/08/16 11/09/16 11/09/16 18:59 06:59 18:59 Intake Total 1171 180 Output Total 350 550 400 Balance 821 -550 -220 Weight 87.3 kg 92.7 kg Intake: Oral 1171 180 Output: Urine 250 250 400 Stool 100 300 Other: Voiding Method Bedside Commode Bedside Commode # Voids 1 1 # Bowel Movements 1 - Exam Gen: This is a 81-year-old female. She is resting in bed and appears to be in no acute distress. Feeling better today HEENT: Head is atraumatic, normocephalic. Pupils equal, round. Sclerae is anicteric. Conjunctiva slightly pale. Mucous members of the mouth are dry. No thrush noted. NECK: Supple. No JVD. No lymphadenopathy. No thyromegaly. LUNGS: A few scattered rhonchi. No wheezes. No intercostal retractions. HEART: Irregular rate and rhythm. No murmur. Port noted to right upper anterior chest wall with no surrounding tenderness, erythema or edema. ABDOMEN: Soft. Bowel sounds are present. No masses. No tenderness. EXTREMITIES: 2+ bilateral pedal edema. Dorsalis pedis +2 bilaterally. stockings on today with some improvement NEUROLOGICAL: Patient is awake, alert and oriented x3. - Labs CBC & Chem 7: 11/09/16 06:46 11/09/16 06:46 Labs: Abnormal Lab Results - Last 24 Hours (Table) 11/09/16 11/09/16 Range/Units 06:46 06:46 RBC 2.52 L (3.80-5.40) m/uL Hgb 8.1 L (11.4-16.0) gm/dL Hct 24.6 L (34.0-46.0) % RDW 17.7 H (11.5-15.5) % Plt Count 13 L* (150-450) k/uL Lymphocytes # 0.1 L (1.0-4.8) k/uL Sodium 133 L (137-145) mmol/L Creatinine 1.20 H (0.52-1.04) mg/dL Glucose 120 H (74-99) mg/dL Calcium 7.9 L (8.4-10.2) mg/dL Microbiology - Last 24 Hours (Table) 11/04/16 15:59 Blood Culture - Preliminary Blood No Growth after 96 hours Laboratory Results WBC 4.2 k/uL (3.8-10.6) 11/09/16 06:46 RBC 2.52 m/uL (3.80-5.40) L 11/09/16 06:46 Hgb 8.1 gm/dL (11.4-16.0) L 11/09/16 06:46 Hct 24.6 % (34.0-46.0) L 11/09/16 06:46 MCV 97.5 fL (80.0-100.0) 11/09/16 06:46 MCH 32.1 pg (25.0-35.0) 11/09/16 06:46 MCHC 33.0 g/dL (31.0-37.0) 11/09/16 06:46 RDW 17.7 % (11.5-15.5) H 11/09/16 06:46 Plt Count 13 k/uL (150-450) L* 11/09/16 06:46 Neutrophils % 83 % 11/09/16 06:46 Neutrophils % (Manual) 46.0 % 11/08/16 05:33 Band Neutrophils % 35.5 % 11/08/16 05:33 Lymphocytes % 3 % 11/09/16 06:46 Lymphocytes % (Manual) 5.0 % 11/08/16 05:33 Monocytes % 10 % 11/09/16 06:46 Monocytes % (Manual) 8.5 % 11/08/16 05:33 Eosinophils % 1 % 11/09/16 06:46 Eosinophils % (Manual) 4.5 % 11/08/16 05:33 Basophils % 0 % 11/09/16 06:46 Myelocytes % 0.5 % 11/08/16 05:33 Neutrophils # 3.5 k/uL (1.3-7.7) 11/09/16 06:46 Neutrophils # (Manual) 2.2 k/uL (1.3-7.7) 11/08/16 05:33 Lymphocytes # 0.1 k/uL (1.0-4.8) L 11/09/16 06:46 Lymphocytes # (Manual) 0.1 k/uL (1.0-4.8) L 11/08/16 05:33 Monocytes # 0.4 k/uL (0-1.0) 11/09/16 06:46 Monocytes # (Manual) 0.2 k/uL (0-1.0) 11/08/16 05:33 Eosinophils # 0.0 k/uL (0-0.7) 11/09/16 06:46 Eosinophils # (Manual) 0.1 k/uL (0-0.7) 11/08/16 05:33 Basophils # 0.0 k/uL (0-0.2) 11/09/16 06:46 Nucleated RBCs 0 /100 WBC (0-0) 11/08/16 05:33 Differential Comment 11/07/16 05:38 Manual Slide Review Performed 11/07/16 05:38 Hypochromasia Slight 11/08/16 05:33 Poikilocytosis (manual Present 11/08/16 05:33 Anisocytosis Slight 11/09/16 06:46 Anisocytosis (manual) Present 11/07/16 05:38 Macrocytosis Slight 11/09/16 06:46 Ovalocytes Present 11/08/16 05:33 Fragmented RBCs Present 11/08/16 05:33 Sodium 133 mmol/L (137-145) L 11/09/16 06:46 Potassium 3.9 mmol/L (3.5-5.1) 11/09/16 06:46 Chloride 105 mmol/L (98-107) 11/09/16 06:46 Carbon Dioxide 23 mmol/L (22-30) 11/09/16 06:46 Anion Gap 5 mmol/L 11/09/16 06:46 BUN 13 mg/dL (7-17) 11/09/16 06:46 Creatinine 1.20 mg/dL (0.52-1.04) H 11/09/16 06:46 Est GFR (MDRD) Af Amer 52 (>60 ml/min/1.73 sqM) 11/09/16 06:46 Est GFR (MDRD) Non-Af 43 (>60 ml/min/1.73 sqM) 11/09/16 06:46 Glucose 120 mg/dL (74-99) H 11/09/16 06:46 Plasma Lactic Acid Rodney 1.3 mmol/L (0.7-2.0) 11/04/16 17:37 Calcium 7.9 mg/dL (8.4-10.2) L 11/09/16 06:46 Magnesium 1.6 mg/dL (1.6-2.3) 11/08/16 05:33 Total Bilirubin 1.4 mg/dL (0.2-1.3) H 11/06/16 05:38 Conjugated Bilirubin 0.0 mg/dL (0.0-0.3) 11/04/16 15:59 Unconjugated Bilirubin 1.1 mg/dL (0.0-1.1) 11/04/16 15:59 Delta Bilirubin 0.5 mg/dL (0.0-0.2) H 11/04/16 15:59 AST 10 U/L (14-36) L 11/06/16 05:38 ALT 37 U/L (9-52) 11/06/16 05:38 Alkaline Phosphatase 46 U/L (38-126) 11/06/16 05:38 Total Creatine Kinase <20 U/L (30-135) L 11/04/16 22:40 CK-MB (CK-2) <0.2 ng/mL (0.0-2.4) 11/04/16 22:40 CK-MB (CK-2) Rel Index 11/04/16 22:40 Troponin I 0.051 ng/mL (0.000-0.034) H* 11/04/16 22:40 Total Protein 3.6 g/dL (6.3-8.2) L 11/06/16 05:38 Albumin 1.8 g/dL (3.5-5.0) L 11/06/16 05:38 Triglycerides 45 mg/dL (<150) 11/05/16 05:43 Cholesterol <50 mg/dL (<200) 11/05/16 05:43 LDL Cholesterol, Calc 8 mg/dL (0-99) 11/05/16 05:43 HDL Cholesterol 33 mg/dL (40-60) L 11/05/16 05:43 TSH 0.951 mIU/L (0.465-4.680) 11/05/16 05:43 Free T4 1.69 ng/dL (0.78-2.19) 11/05/16 05:43 Urine Color Yellow 11/05/16 01:24 Urine Appearance Clear (Clear) 11/05/16 01:24 Urine pH 5.5 (5.0-8.0) 11/05/16 01:24 Ur Specific [place] 1.018 (1.001-1.035) 11/05/16 01:24 Urine Protein Negative (Negative) 11/05/16 01:24 Urine Glucose (UA) Negative (Negative) 11/05/16 01:24 Urine Ketones Negative (Negative) 11/05/16 01:24 Urine Blood Trace (Negative) H 11/05/16 01:24 Urine Nitrate Positive (Negative) H 11/05/16 01:24 Urine Bilirubin Negative (Negative) 11/05/16 01:24 Urine Urobilinogen <2.0 mg/dL (<2.0) 11/05/16 01:24 Ur Leukocyte Esterase Negative (Negative) 11/05/16 01:24 Urine RBC 1 /hpf (0-5) 11/05/16 01:24 Urine WBC 3 /hpf (0-5) 11/05/16 01:24 Ur Squamous Epith Cells 2 /hpf (0-4) 11/05/16 01:24 Urine Bacteria Many /hpf (None) H 11/05/16 01:24 Vancomycin Trough 15.5 ug/mL 11/06/16 19:11 Influenza Type A RNA Not Detected (Not Detectd) 11/04/16 15:04 Influenza Type B (PCR) Not Detected (Not Detectd) 11/04/16 15:04 Blood Type A Positive 11/04/16 17:37 Blood Type Recheck No 11/04/16 17:37 Antibody Screen NEGATIVE 11/04/16 17:37 Crossmatch See Detail 11/04/16 17:37 Transfuse Platelets 11/05/16 11/05/16 08:47 Spec Expiration Date 11/07/2016 - 2189 11/04/16 17:37 Microbiology 11/04/16 15:59 Blood Blood Culture - Preliminary No Growth after 96 hours 11/05/16 01:24 Urine,Clean Catch Urine Culture - Final Assessment and Plan (1) Febrile neutropenia Narrative/Plan: Pleasant 81-year-old female who is status post recycles of R CHOP which was converted to RCEO P presents to hospital with febrile neutropenia associated with significant cardiac dysrhythmia. She's been treated with amiodarone as well as diltiazem drip. Her heart rate and rhythm have improved. She is definitely feeling better today. She is much less weak. His been up in the chair for 3 hours. With less weakness shortness of breath and discomfort. Overall feeling better today. Her neutropenia has now improved. Her absolute neutrophil count is now 3.5 the white blood cell count of 4.4. Cultures remain negative. Doing well with current antibiotic therapy. The fever has resolved. Overall felling better denies new problems today but still with tachycardia With the improved white blood cell count the antibiotics will be further altered , vancomycin was discontinued. With the improvement Avelox will be transitioned from meropenem to cefuroxime 500 mg twice per day for 72 hours. Status: Acute (2) Diffuse large B-cell lymphoma Status: Chronic
--- NOTE | 2016-11-09 17:02 | PN ---
INTERVAL HISTORY: Ms. Mclain is an 81-year-old female with a past medical history of lymphoma, atrial fibrillation, hypertension, hyperlipidemia, admitted to the hospital with a chief complaint of generalized weakness and fevers. The patient was then found to have atrial fibrillation with rapid ventricular rate and was started on Cardizem drip, after which her heart rate has come down to 130s to 140s. Patient was also being treated for febrile neutropenia and so far cultures have been negative. She is being followed by hematology Dr. Montana and ID Dr. Leal. Today the patient is sitting up in the bed, appears to be in no acute distress. She states that she feels that her heart is beating funny. No complaints of chest pain or difficulty in breathing. REVIEW OF SYSTEMS: CONSTITUTIONAL: Denies having any fevers, chills, or rigors. RESPIRATORY: No cough. No difficulty in breathing. CARDIAC: Positive for palpitations. No chest pain. GI: No abdominal pain, nausea, vomiting, or diarrhea. : No dysuria or hematuria. The patient's medications have been reviewed. She is on: 1. Tylenol. 2. [place]. 3. Xanax. 4. Amiodarone. 5. Lipitor. 6. Melatonin. 7. Meropenem. 8. Lopressor. 9. Magnesium oxide. 10. Morphine sulfate. 11. Multivitamin. On examination, patient's vitals: Temperature 98.2, heart rate between the one tens to 130s, respiratory rate 18, blood pressure 102/59, saturating at 98% on room air. GENERAL EXAMINATION: Elderly female sitting up in the chair besides her bed, appears to be in no acute distress. HEAD: Atraumatic, normocephalic. EYES: Pupils, round, and reactive to light. No pallor. No icterus. NECK: No thyromegaly. Examination of the chest the patient has a Mediport in place. No signs of active infection around the Mediport. LUNGS: Positive for coarse breath sounds bilaterally. No wheezes. CARDIAC: S1, S2 heard irregularly irregular. ABDOMEN: Soft, nontender. Bowel sounds positive. EXTREMITIES: Positive for bilateral pitting edema up to the knee. MUSCULOSKELETAL: No joint swellings or deformities. LAN ADMINISTRATOR: Alert, awake, oriented x3. No focal deficits. Patient's labs: White count of 4.2, hemoglobin is 8.1, platelets of 13, sodium 133, potassium 3.9, chloride 105, bicarb 23, BUN 13, creatinine 1.20 and calcium of 7.9. ASSESSMENT AND PLAN: 1. Atrial fibrillation with rapid ventricular response. 2. Febrile neutropenia. 3. Pancytopenia. 4. Diffuse large B-cell lymphoma. 5. Hypertension. 6. Hyperlipidemia. 7. Chronic debility. PLAN: The plan is to continue the patient on the antibiotics in the form of Meropenem. Patient's white count has been slowly trending up today at 4.2. With neutrophils percentage being 83. The patient's platelets have been around 13, but no signs of active bleeding. Cardiology on board and adjusting the medications to get her rate under control. We will continue with the rest of the medication regimen and further recommendations to follow depending on the progress of the patient. MTDD
[2016-11-09] MEDS: MELATONIN 3 MG TABLET PO SCH (21:52)
[2016-11-09] MEDS: CEFUROXIME 250 MG TAB PO SCH (21:54)
[2016-11-10 06:27] LABS: Calcium 8.2 mg/dL (8.4-10.2)
[2016-11-10 06:44] LABS: Anisocytosis Slight; Basophils % (A) 0 %; CH 31.4; CHCM 32.5; Eosinophils # (A) 0.1 k/uL (0-0.7); Eosinophils % (A) 2 %; HCT 24.8 % (34.0-46.0); HDW 3.14; Immature Gran Flag Slight; Luc # (Auto) 0.21; Luc % (Auto) 4; Lymphocytes # (A) 0.3 k/uL (1.0-4.8); Lymphocytes % (A) 6 %; MCH 31.5 pg (25.0-35.0); MCHC 32.3 g/dL (31.0-37.0); MCV 97.5 fL (80.0-100.0); Macrocytosis Slight; Mean Platelet Volume 10.4; Monocytes # (A) 0.4 k/uL (0-1.0); Monocytes % (A) 7 %; Neutrophils # (A) 4.3 k/uL (1.3-7.7); Neutrophils % (A) 81 %; RBC 2.55 m/uL (3.80-5.40); RDW 17.7 % (11.5-15.5); WBC 5.3 k/uL (3.8-10.6); WBC (Perox) 5.47
[2016-11-10] MEDS: CEFUROXIME 250 MG TAB PO SCH ×2 (08:26→23:54)
[2016-11-10] MEDS: METOPROLOL TARTRATE 50 MG TAB PO SCH (08:27)
[2016-11-10] MEDS: ATORVASTATIN 20 MG TAB PO SCH (08:27)
[2016-11-10] MEDS: AMIODARONE 200 MG TAB PO SCH (08:27)
[2016-11-10 10:05] LABS: Tear Drop Cells Present
[2016-11-10] MEDS ORDERED: METOPROLOL TARTRATE 25 MG TAB PO ONE (10:45)
[2016-11-10] MEDS: MULTIVITAMINS, THERA 1 EACH TAB PO SCH (12:11)
[2016-11-10] MEDS: HYDROcodone/APAP 5-325MG 1 EACH TAB PO PRN (12:13)
--- NOTE | 2016-11-10 13:46 | PN ---
81-year-old female with atrial fibrillation with RVR, lying comfortably in bed at this time. She denies any palpitations, chest discomfort, does not appear to be short of breath. Denies shortness of breath. Vitals: Heart rate she is in atrial fibrillation, heart rate is between 100 to 120 beats a minute, irregular, blood pressure 122/66 mmHg. Normal respirations, afebrile. Breath sounds are reduced bilaterally. Heart sounds are irregular and slightly tachycardic. IMPRESSION: 1. Atrial fibrillation with rapid ventricular response. 2. Diffuse large cell lymphoma on chemotherapy. 3. Hypertension. 4. Dyslipidemia. 5. Febrile neutropenia. SUGGEST: Rate control for atrial fibrillation. Continue oral amiodarone for rate control and the metoprolol dose has been increased to 75 mg twice daily. She should be able to tolerate this. Her blood pressure for the most part has been is in normal range.
[2016-11-10] MEDS ORDERED: AMIODARONE 200 MG TAB PO ONE (16:00)
[2016-11-10] MEDS: METOPROLOL TARTRATE 25 MG TAB PO SCH ×2 (17:12→23:53)
[2016-11-11 06:47] LABS: Anisocytosis Slight; Basophils % (A) 0 %; CH 31.6; CHCM 32.8; Eosinophils # (A) 0.1 k/uL (0-0.7); Eosinophils % (A) 1 %; HCT 23.8 % (34.0-46.0); HDW 3.15; HGB 7.9 gm/dL (11.4-16.0); Luc # (Auto) 0.26; Luc % (Auto) 4; Lymphocytes # (A) 0.5 k/uL (1.0-4.8); Lymphocytes % (A) 8 %; MCH 32.1 pg (25.0-35.0); MCV 97.2 fL (80.0-100.0); Macrocytosis Slight; Monocytes # (A) 0.4 k/uL (0-1.0); Monocytes % (A) 6 %; Neutrophils # (A) 4.7 k/uL (1.3-7.7); Neutrophils % (A) 80 %; RBC 2.45 m/uL (3.80-5.40); WBC 5.9 k/uL (3.8-10.6); WBC (Perox) 6.11
[2016-11-11 06:58] LABS: Calcium 7.9 mg/dL (8.4-10.2)
[2016-11-11] MEDS: MELATONIN 3 MG TABLET PO SCH (07:51)
[2016-11-11] MEDS: METOPROLOL TARTRATE 25 MG TAB PO SCH ×2 (07:52→15:25)
[2016-11-11] MEDS: ATORVASTATIN 20 MG TAB PO SCH (07:53)
[2016-11-11] MEDS: CEFUROXIME 250 MG TAB PO SCH (07:53)
[2016-11-11] MEDS: MULTIVITAMINS, THERA 1 EACH TAB PO SCH (07:55)
[2016-11-11] MEDS ORDERED: AMIODARONE 200 MG TAB PO SCH (09:00)
--- NOTE | 2016-11-11 13:04 | PN ---
INTERVAL HISTORY: Ms. Rose is an 81-year-old female with a past medical history of lymphoma, atrial fibrillation, hypertension, hyperlipidemia, admitted to the hospital with a chief complaint of generalized weakness and fevers. Patient was found to have A. fib with RVR and was started on Cardizem drip after which her heart rate decreased. Cardiology on board and adjusting her antiarrhythmic drugs to decrease her heart rate. Patient is also being treated for febrile neutropenia with meropenem. Infectious Disease, Dr. Leal on board. Cardiology, Hematology, Infectious Disease following the patient. The patient is sitting up in a chair besides her bed, appears to be in no acute distress. She states that she feels much better compared to a couple of days back. REVIEW OF SYSTEMS: CONSTITUTIONAL: Denies having any fevers, chills, or rigors. RESPIRATORY: No cough. No difficulty in breathing. CARDIAC: No chest pain or palpitations. GI: No abdominal pain, nausea, vomiting, or diarrhea. : No dysuria or hematuria. Patient's medications have been reviewed. On examination, patient's vital signs, temperature 98.7, heart rate between 100s to 130s, respiratory rate 18, blood pressure 133/68, saturating at 96% on room air. GENERAL EXAMINATION: Elderly female, sitting up in a chair besides the bed, no acute distress. HEAD: Atraumatic, normocephalic. EYES: Pupils are round and reactive to light. No pallor. No icterus. NECK: No JVD. No thyromegaly. Examination of the chest, patient has a Mediport in place. No signs of active infection around it. LUNGS: Positive for coarse breath sounds bilaterally and a few crackles at the lower lung bases. CARDIAC: S1, S2 heard, irregularly, irregular. Abdomen is soft. Bowel sounds positive. EXTREMITIES: Positive for bilateral pitting edema up to the knee joint. MUSCULOSKELETAL: No joint or ( ) deformities. KRAFT MILL OPERATOR: Alert and oriented x3. No focal neurological deficits. Patient's labs: White count of 5.3, hemoglobin is 8, platelets of 19. Sodium is 134, potassium 4, chloride 104, bicarb 24, BUN 16, creatinine 1.10. ASSESSMENT AND PLAN: 1. Atrial fibrillation with rapid ventricular response. 2. Febrile neutropenia. 3. Pancytopenia. 4. Diffuse large B-cell lymphoma. 5. Hypertension. 6. Hyperlipidemia. 7. Chronic debility. PLAN: The plan is to continue the patient on antibiotics in the form of Ceftin as per Dr. Elvis PAGAN recommendations. She was on meropenem until yesterday. Her metoprolol dose has been adjusted to 75 mg 3 times a day and to continue with the rest of her medication regimen. Blood cultures still are negative for urine and blood cultures. Further recommendations to follow depending on the progress of the patient.
[2016-11-11 13:07] VITALS: RESP 18
--- NOTE | 2016-11-11 15:10 | P.PN ---
Subjective Principal diagnosis: Claus dolan This is an 81-year-old female with known history of hypertension, hyperlipidemia, lymphoma currently undergoing chemotherapy, paroxysmal atrial fibrillation, on Savaysa, although this was by Dr. Montana, she presented to the hospital with symptoms of significant weakness. She denies any palpitations, mild shortness of breath. On admission, patient was found to be in atrial fibrillation with a rapid ventricular response, and was then transferred here from [facility]. At the time of my examination today, patient's heart rate is 90 to 100 this morning. Continues to be on oral amiodarone and metoprolol tartrate. OSMAR inhibitor on hold because of hypotension. Savaysa continues to be on hold because of the patient's platelet count, this will be reassessed as an outpatient by Dr. Montana. Overall the patient is feeling much improved today. From cardiology's perspective, she may be able to be discharged once cleared by the primary. We will make her a follow-up appointment in the office post discharge. Objective - Vital Signs Vital signs: Vital Signs Temp 98.1 F 11/11/16 11:50 Pulse 125 H 11/11/16 11:50 Resp 18 11/11/16 11:50 BP 109/68 11/11/16 11:50 Pulse Ox 97 11/11/16 11:50 Intake & Output 11/10/16 11/11/16 11/11/16 18:59 06:59 18:59 Intake Total 460 580 Output Total 200 Balance 460 -200 580 Weight 94.5 kg Intake: Oral 460 580 Output: Stool 200 Other: Voiding Method Bedside Commode Bedside Commode # Voids 1 0 1 # Bowel Movements 1 1 - Exam PHYSICAL EXAMINATION: HEENT: Head is atraumatic, normocephalic. Pupils equal, round. Neck is supple. There is no elevated jugular venous pressure. HEART EXAMINATION: Heart S1 and S2 irregular irregular CHEST EXAMINATION: Lungs are clear to auscultation and precussion. No chest wall tenderness is noted on palpation or with deep breathing. PICC line in place at right upper chest ABDOMEN: Soft, nontender. Bowel sounds are heard. No organomegaly noted. EXTREMITIES: 2+ peripheral pulses with no evidence of peripheral edema and no calf tenderness noted. NEUROLOGIC patient is awake, alert and oriented -3. - Labs CBC & Chem 7: 11/11/16 06:31 11/11/16 06:28 Labs: Abnormal Lab Results - Last 24 Hours (Table) 11/11/16 11/11/16 Range/Units 06:28 06:31 RBC 2.45 L (3.80-5.40) m/uL Hgb 7.9 L (11.4-16.0) gm/dL Hct 23.8 L (34.0-46.0) % RDW 18.0 H (11.5-15.5) % Plt Count 26 L* (150-450) k/uL Lymphocytes # 0.5 L (1.0-4.8) k/uL Sodium 134 L (137-145) mmol/L Creatinine 1.10 H (0.52-1.04) mg/dL Glucose 132 H (74-99) mg/dL Calcium 7.9 L (8.4-10.2) mg/dL Microbiology - Last 24 Hours (Table) 11/04/16 15:59 Blood Culture - Final Blood No Growth after 144 hours Assessment and Plan Plan: Assessment and Plan #1 atrial fibrillation with rapid ventricular response #2 history of paroxysmal atrial fibrillation #3 febrile neutropenia , weakness, possible sepsis. #4 diffuse large B cell lymphoma, on chemotherapy # 5 hypertension #6 hyperlipidemia #7 pancytopenia Plan From cardiology standpoint, we will continue current dose of metoprolol tartrate along with amiodarone. OSMAR inhibitor has been discontinued because of hypotension. She continues to be off of her Savaysa because of the low platelet count. DNP note has been reviewed, I agree with a documented findings and plan of care. Patient was seen and examined.
[2016-11-11 17:24] VITALS: BP 116/65; PULSE 112; TEMP 98.3
--- NOTE | 2016-11-11 18:58 | P.PN ---
Subjective Principal diagnosis: Febrile neutropenia This is an 81-year-old female. She is well-known to ID service as she was seen during a hospitalization in April 2016 at which time she presented with left jaw swelling at the left parotid area with tenderness and surrounding erythema. There was concern for phlegmon. She was treated with Augmentin at the time of discharge and had follow-up with Dr. 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 She underwent chemotherapy in August for 2 cycles of R CHOP. She was hospitalized in September for atrial flutter and subsequently chemotherapy was changed to our COPD and patient received a dose of Neulasta on October 31. Patient presented to [facility] complaining of weakness. She was initially at [facility] and transferred. She was found to be in atrial fibrillation with rapid ventricular response. Patient was initially started on Cardizem drip which is been changed amiodarone drip. She has been tachycardic and had temperature of 102.1. Patient was severely pancytopenic with WBC currently 0.2, hemoglobin 8.5 and platelet count 8. She is status post 2 units packed RBCs and platelets. Cardiology and pulmonary medicine are both on consult. Patient does state that she had a little diarrhea at home and one in the emergency center. She states her weakness is improved this morning but not back to baseline. She states she has also had significant lower extremity edema for which she has been on diuretic prior to admission. Patient is feeling better again today. Her fevers have resolved She's not had any chills or rigors. Edema is improving. She's less short of breath. Heart rate is still irregular and accelerated . Further medication changes of been utilized. She is off intravenous antibiotic therapy and completing her course of antibiotics for her febrile neutropenia. Objective - Vital Signs Vital signs: Vital Signs Temp 98.3 F 11/11/16 17:00 Pulse 112 H 11/11/16 17:00 Resp 18 11/11/16 17:00 BP 116/65 11/11/16 17:00 Pulse Ox 96 11/11/16 17:00 Intake & Output 11/10/16 11/11/16 11/11/16 18:59 06:59 18:59 Intake Total 460 980 Output Total 200 Balance 460 -200 980 Weight 94.5 kg Intake: Oral 460 980 Output: Stool 200 Other: Voiding Method Bedside Commode Bedside Commode # Voids 1 0 1 # Bowel Movements 1 1 - Exam Gen: This is a 81-year-old female. She is resting in bed and appears to be in no acute distress. Feeling better today HEENT: Head is atraumatic, normocephalic. Pupils equal, round. Sclerae is anicteric. Conjunctiva slightly pale. Mucous members of the mouth are dry. No thrush noted. NECK: Supple. No JVD. No lymphadenopathy. No thyromegaly. LUNGS: A few scattered rhonchi. No wheezes. No intercostal retractions. HEART: Irregular rate and rhythm. No murmur. Port noted to right upper anterior chest wall with no surrounding tenderness, erythema or edema. ABDOMEN: Soft. Bowel sounds are present. No masses. No tenderness. EXTREMITIES: 2+ bilateral pedal edema. Dorsalis pedis +2 bilaterally. Stockings causing irritation to the left pretibial area. NEUROLOGICAL: Patient is awake, alert and oriented x3. - Labs CBC & Chem 7: 11/11/16 06:31 11/11/16 06:28 Labs: Abnormal Lab Results - Last 24 Hours (Table) 11/11/16 11/11/16 Range/Units 06:28 06:31 RBC 2.45 L (3.80-5.40) m/uL Hgb 7.9 L (11.4-16.0) gm/dL Hct 23.8 L (34.0-46.0) % RDW 18.0 H (11.5-15.5) % Plt Count 26 L* (150-450) k/uL Lymphocytes # 0.5 L (1.0-4.8) k/uL Sodium 134 L (137-145) mmol/L Creatinine 1.10 H (0.52-1.04) mg/dL Glucose 132 H (74-99) mg/dL Calcium 7.9 L (8.4-10.2) mg/dL Microbiology - Last 24 Hours (Table) 11/04/16 15:59 Blood Culture - Final Blood No Growth after 144 hours Laboratory Results WBC 5.9 k/uL (3.8-10.6) 11/11/16 06:31 RBC 2.45 m/uL (3.80-5.40) L 11/11/16 06:31 Hgb 7.9 gm/dL (11.4-16.0) L 11/11/16 06:31 Hct 23.8 % (34.0-46.0) L 11/11/16 06:31 MCV 97.2 fL (80.0-100.0) 11/11/16 06:31 MCH 32.1 pg (25.0-35.0) 11/11/16 06:31 MCHC 33.0 g/dL (31.0-37.0) 11/11/16 06:31 RDW 18.0 % (11.5-15.5) H 11/11/16 06:31 Plt Count 26 k/uL (150-450) L* 11/11/16 06:31 Neutrophils % 80 % 11/11/16 06:31 Neutrophils % (Manual) 46.0 % 11/08/16 05:33 Band Neutrophils % 35.5 % 11/08/16 05:33 Lymphocytes % 8 % 11/11/16 06:31 Lymphocytes % (Manual) 5.0 % 11/08/16 05:33 Monocytes % 6 % 11/11/16 06:31 Monocytes % (Manual) 8.5 % 11/08/16 05:33 Eosinophils % 1 % 11/11/16 06:31 Eosinophils % (Manual) 4.5 % 11/08/16 05:33 Basophils % 0 % 11/11/16 06:31 Myelocytes % 0.5 % 11/08/16 05:33 Neutrophils # 4.7 k/uL (1.3-7.7) 11/11/16 06:31 Neutrophils # (Manual) 2.2 k/uL (1.3-7.7) 11/08/16 05:33 Lymphocytes # 0.5 k/uL (1.0-4.8) L 11/11/16 06:31 Lymphocytes # (Manual) 0.1 k/uL (1.0-4.8) L 11/08/16 05:33 Monocytes # 0.4 k/uL (0-1.0) 11/11/16 06:31 Monocytes # (Manual) 0.2 k/uL (0-1.0) 11/08/16 05:33 Eosinophils # 0.1 k/uL (0-0.7) 11/11/16 06:31 Eosinophils # (Manual) 0.1 k/uL (0-0.7) 11/08/16 05:33 Basophils # 0.0 k/uL (0-0.2) 11/11/16 06:31 Nucleated RBCs 0 /100 WBC (0-0) 11/08/16 05:33 Differential Comment 11/07/16 05:38 Manual Slide Review Performed 11/07/16 05:38 Hypochromasia Slight 11/08/16 05:33 Poikilocytosis (manual Present 11/10/16 05:37 Anisocytosis Slight 11/11/16 06:31 Anisocytosis (manual) Present 11/07/16 05:38 Macrocytosis Slight 11/11/16 06:31 Tear Drop Cells Present 11/10/16 05:37 Ovalocytes Present 11/08/16 05:33 Fragmented RBCs Present 11/10/16 05:37 Sodium 134 mmol/L (137-145) L 11/11/16 06:28 Potassium 4.0 mmol/L (3.5-5.1) 11/11/16 06:28 Chloride 104 mmol/L (98-107) 11/11/16 06:28 Carbon Dioxide 24 mmol/L (22-30) 11/11/16 06:28 Anion Gap 6 mmol/L 11/11/16 06:28 BUN 17 mg/dL (7-17) 11/11/16 06:28 Creatinine 1.10 mg/dL (0.52-1.04) H 11/11/16 06:28 Est GFR (MDRD) Af Amer 58 (>60 ml/min/1.73 sqM) 11/11/16 06:28 Est GFR (MDRD) Non-Af 48 (>60 ml/min/1.73 sqM) 11/11/16 06:28 Glucose 132 mg/dL (74-99) H 11/11/16 06:28 Plasma Lactic Acid Rodney 1.3 mmol/L (0.7-2.0) 11/04/16 17:37 Calcium 7.9 mg/dL (8.4-10.2) L 11/11/16 06:28 Magnesium 1.6 mg/dL (1.6-2.3) 11/08/16 05:33 Total Bilirubin 1.4 mg/dL (0.2-1.3) H 11/06/16 05:38 Conjugated Bilirubin 0.0 mg/dL (0.0-0.3) 11/04/16 15:59 Unconjugated Bilirubin 1.1 mg/dL (0.0-1.1) 11/04/16 15:59 Delta Bilirubin 0.5 mg/dL (0.0-0.2) H 11/04/16 15:59 AST 10 U/L (14-36) L 11/06/16 05:38 ALT 37 U/L (9-52) 11/06/16 05:38 Alkaline Phosphatase 46 U/L (38-126) 11/06/16 05:38 Total Creatine Kinase <20 U/L (30-135) L 11/04/16 22:40 CK-MB (CK-2) <0.2 ng/mL (0.0-2.4) 11/04/16 22:40 CK-MB (CK-2) Rel Index 11/04/16 22:40 Troponin I 0.051 ng/mL (0.000-0.034) H* 11/04/16 22:40 Total Protein 3.6 g/dL (6.3-8.2) L 11/06/16 05:38 Albumin 1.8 g/dL (3.5-5.0) L 11/06/16 05:38 Triglycerides 45 mg/dL (<150) 11/05/16 05:43 Cholesterol <50 mg/dL (<200) 11/05/16 05:43 LDL Cholesterol, Calc 8 mg/dL (0-99) 11/05/16 05:43 HDL Cholesterol 33 mg/dL (40-60) L 11/05/16 05:43 TSH 0.951 mIU/L (0.465-4.680) 11/05/16 05:43 Free T4 1.69 ng/dL (0.78-2.19) 11/05/16 05:43 Urine Color Yellow 11/05/16 01:24 Urine Appearance Clear (Clear) 11/05/16 01:24 Urine pH 5.5 (5.0-8.0) 11/05/16 01:24 Ur Specific [place] 1.018 (1.001-1.035) 11/05/16 01:24 Urine Protein Negative (Negative) 11/05/16 01:24 Urine Glucose (UA) Negative (Negative) 11/05/16 01:24 Urine Ketones Negative (Negative) 11/05/16 01:24 Urine Blood Trace (Negative) H 11/05/16 01:24 Urine Nitrate Positive (Negative) H 11/05/16 01:24 Urine Bilirubin Negative (Negative) 11/05/16 01:24 Urine Urobilinogen <2.0 mg/dL (<2.0) 11/05/16 01:24 Ur Leukocyte Esterase Negative (Negative) 11/05/16 01:24 Urine RBC 1 /hpf (0-5) 11/05/16 01:24 Urine WBC 3 /hpf (0-5) 11/05/16 01:24 Ur Squamous Epith Cells 2 /hpf (0-4) 11/05/16 01:24 Urine Bacteria Many /hpf (None) H 11/05/16 01:24 Vancomycin Trough 15.5 ug/mL 11/06/16 19:11 Influenza Type A RNA Not Detected (Not Detectd) 11/04/16 15:04 Influenza Type B (PCR) Not Detected (Not Detectd) 11/04/16 15:04 Blood Type A Positive 11/04/16 17:37 Blood Type Recheck No 11/04/16 17:37 Antibody Screen NEGATIVE 11/04/16 17:37 Crossmatch See Detail 11/04/16 17:37 Transfuse Platelets 11/05/16 11/05/16 08:47 Spec Expiration Date 11/07/2016 6742 11/04/16 17:37 Laboratory Results WBC 5.9 k/uL (3.8-10.6) 11/11/16 06:31 RBC 2.45 m/uL (3.80-5.40) L 11/11/16 06:31 Hgb 7.9 gm/dL (11.4-16.0) L 11/11/16 06:31 Hct 23.8 % (34.0-46.0) L 11/11/16 06:31 MCV 97.2 fL (80.0-100.0) 11/11/16 06:31 MCH 32.1 pg (25.0-35.0) 11/11/16 06:31 MCHC 33.0 g/dL (31.0-37.0) 11/11/16 06:31 RDW 18.0 % (11.5-15.5) H 11/11/16 06:31 Plt Count 26 k/uL (150-450) L* 11/11/16 06:31 Neutrophils % 80 % 11/11/16 06:31 Neutrophils % (Manual) 46.0 % 11/08/16 05:33 Band Neutrophils % 35.5 % 11/08/16 05:33 Lymphocytes % 8 % 11/11/16 06:31 Lymphocytes % (Manual) 5.0 % 11/08/16 05:33 Monocytes % 6 % 11/11/16 06:31 Monocytes % (Manual) 8.5 % 11/08/16 05:33 Eosinophils % 1 % 11/11/16 06:31 Eosinophils % (Manual) 4.5 % 11/08/16 05:33 Basophils % 0 % 11/11/16 06:31 Myelocytes % 0.5 % 11/08/16 05:33 Neutrophils # 4.7 k/uL (1.3-7.7) 11/11/16 06:31 Neutrophils # (Manual) 2.2 k/uL (1.3-7.7) 11/08/16 05:33 Lymphocytes # 0.5 k/uL (1.0-4.8) L 11/11/16 06:31 Lymphocytes # (Manual) 0.1 k/uL (1.0-4.8) L 11/08/16 05:33 Monocytes # 0.4 k/uL (0-1.0) 11/11/16 06:31 Monocytes # (Manual) 0.2 k/uL (0-1.0) 11/08/16 05:33 Eosinophils # 0.1 k/uL (0-0.7) 11/11/16 06:31 Eosinophils # (Manual) 0.1 k/uL (0-0.7) 11/08/16 05:33 Basophils # 0.0 k/uL (0-0.2) 11/11/16 06:31 Nucleated RBCs 0 /100 WBC (0-0) 11/08/16 05:33 Differential Comment 11/07/16 05:38 Manual Slide Review Performed 11/07/16 05:38 Hypochromasia Slight 11/08/16 05:33 Poikilocytosis (manual Present 11/10/16 05:37 Anisocytosis Slight 11/11/16 06:31 Anisocytosis (manual) Present 11/07/16 05:38 Macrocytosis Slight 11/11/16 06:31 Tear Drop Cells Present 11/10/16 05:37 Ovalocytes Present 11/08/16 05:33 Fragmented RBCs Present 11/10/16 05:37 Sodium 134 mmol/L (137-145) L 11/11/16 06:28 Potassium 4.0 mmol/L (3.5-5.1) 11/11/16 06:28 Chloride 104 mmol/L (98-107) 11/11/16 06:28 Carbon Dioxide 24 mmol/L (22-30) 11/11/16 06:28 Anion Gap 6 mmol/L 11/11/16 06:28 BUN 17 mg/dL (7-17) 11/11/16 06:28 Creatinine 1.10 mg/dL (0.52-1.04) H 11/11/16 06:28 Est GFR (MDRD) Af Amer 58 (>60 ml/min/1.73 sqM) 11/11/16 06:28 Est GFR (MDRD) Non-Af 48 (>60 ml/min/1.73 sqM) 11/11/16 06:28 Glucose 132 mg/dL (74-99) H 11/11/16 06:28 Plasma Lactic Acid Rodney 1.3 mmol/L (0.7-2.0) 11/04/16 17:37 Calcium 7.9 mg/dL (8.4-10.2) L 11/11/16 06:28 Magnesium 1.6 mg/dL (1.6-2.3) 11/08/16 05:33 Total Bilirubin 1.4 mg/dL (0.2-1.3) H 11/06/16 05:38 Conjugated Bilirubin 0.0 mg/dL (0.0-0.3) 11/04/16 15:59 Unconjugated Bilirubin 1.1 mg/dL (0.0-1.1) 11/04/16 15:59 Delta Bilirubin 0.5 mg/dL (0.0-0.2) H 11/04/16 15:59 AST 10 U/L (14-36) L 11/06/16 05:38 ALT 37 U/L (9-52) 11/06/16 05:38 Alkaline Phosphatase 46 U/L (38-126) 11/06/16 05:38 Total Creatine Kinase <20 U/L (30-135) L 11/04/16 22:40 CK-MB (CK-2) <0.2 ng/mL (0.0-2.4) 11/04/16 22:40 CK-MB (CK-2) Rel Index 11/04/16 22:40 Troponin I 0.051 ng/mL (0.000-0.034) H* 11/04/16 22:40 Total Protein 3.6 g/dL (6.3-8.2) L 11/06/16 05:38 Albumin 1.8 g/dL (3.5-5.0) L 11/06/16 05:38 Triglycerides 45 mg/dL (<150) 11/05/16 05:43 Cholesterol <50 mg/dL (<200) 11/05/16 05:43 LDL Cholesterol, Calc 8 mg/dL (0-99) 11/05/16 05:43 HDL Cholesterol 33 mg/dL (40-60) L 11/05/16 05:43 TSH 0.951 mIU/L (0.465-4.680) 11/05/16 05:43 Free T4 1.69 ng/dL (0.78-2.19) 11/05/16 05:43 Urine Color Yellow 11/05/16 01:24 Urine Appearance Clear (Clear) 11/05/16 01:24 Urine pH 5.5 (5.0-8.0) 11/05/16 01:24 Ur Specific [place] 1.018 (1.001-1.035) 11/05/16 01:24 Urine Protein Negative (Negative) 11/05/16 01:24 Urine Glucose (UA) Negative (Negative) 11/05/16 01:24 Urine Ketones Negative (Negative) 11/05/16 01:24 Urine Blood Trace (Negative) H 11/05/16 01:24 Urine Nitrate Positive (Negative) H 11/05/16 01:24 Urine Bilirubin Negative (Negative) 11/05/16 01:24 Urine Urobilinogen <2.0 mg/dL (<2.0) 11/05/16 01:24 Ur Leukocyte Esterase Negative (Negative) 11/05/16 01:24 Urine RBC 1 /hpf (0-5) 11/05/16 01:24 Urine WBC 3 /hpf (0-5) 11/05/16 01:24 Ur Squamous Epith Cells 2 /hpf (0-4) 11/05/16 01:24 Urine Bacteria Many /hpf (None) H 11/05/16 01:24 Vancomycin Trough 15.5 ug/mL 11/06/16 19:11 Influenza Type A RNA Not Detected (Not Detectd) 11/04/16 15:04 Influenza Type B (PCR) Not Detected (Not Detectd) 11/04/16 15:04 Blood Type A Positive 11/04/16 17:37 Blood Type Recheck No 11/04/16 17:37 Antibody Screen NEGATIVE 11/04/16 17:37 Crossmatch See Detail 11/04/16 17:37 Transfuse Platelets 11/05/16 11/05/16 08:47 Spec Expiration Date 11/07/2016 - 235811/04/16 17:37 Microbiology 11/04/16 15:59 Blood Blood Culture - Final No Growth after 144 hours 11/05/16 01:24 Urine,Clean Catch Urine Culture - Final Assessment and Plan (1) Febrile neutropenia Narrative/Plan: Pleasant 81-year-old female who is status post recycles of R CHOP which was converted to RCEO P presents to hospital with febrile neutropenia associated with significant cardiac dysrhythmia. She's been treated with amiodarone as well as diltiazem drip. Her heart rate and rhythm have improved. She is definitely feeling better today. She is much less weak. His been up in the chair for 3 hours. With less weakness shortness of breath and discomfort. Overall feeling better today. Her neutropenia has now improved. Her absolute neutrophil count is now 4.7 the white blood cell count of 5.9. Cultures remain negative. Doing well with current antibiotic therapy. The fever has resolved. Overall felling better denies new problems today but still with tachycardia With the improved white blood cell count the antibiotics will be further altered , vancomycin was discontinued. With the improvement antibiotics were transitioned from meropenem to cefuroxime 500 mg twice per day for 72 hours. Status: Acute (2) Diffuse large B-cell lymphoma Status: Chronic
--- NOTE | 2016-11-12 10:26 | DS ---
DATE OF ADMISSION: 11/04/2016 DATE OF DISCHARGE: 11/11/2016 HOSPITAL COURSE: Ms. Rose is an 81-year-old female with the past medical history of lymphoma, atrial fibrillation, hypertension, hyperlipidemia, admitted to the hospital with the chief complaint of generalized weakness and fever. But patient's heart rate persisted to be about 120s and her antiarrhythmics have been instituted. Patient also developed a fever and was neutropenic due to which Dr. Leal recommendations. She is being discharged on Ceftin . Patient showed significant improvement in her heart rate and her white count was trending up and so she has been cleared by Cardiology, Pulmonary and ID, Dr. Leal to be discharged home today. The patient being discharged and at the time of discharge HR- 110s, respiratory rate of 18, blood pressure 116/60, saturating at 96% on room air. GENERAL EXAMINATION: Patient is AAO-3. HEAD: Atraumatic, normocephalic. LUNGS: Bilateral breath sounds are positive, no rhonchi or crackles. HEART: S1, S2 heard. Tachycardic, irregular. Patient's white count of 5.9, hemoglobin 7.9, platelets 26, sodium 138, potassium 4, chloride 104, carbon dioxide 24, BUN 17, creatinine 1.10. DIAGNOSES: 1. A.Fibrillation. 2. Diffuse large B-cell lymphoma, status post 2 cycles of Chemo therapy. 3. Hypertension. 4. Hyperlipidemia. 5. Chronic debility. Discharge medications: 1. Lipitor 20 mg p.o. daily. 2. Accupril 20 mg p.o. q.a.m. 3. Savaysa 30 mg p.o. daily. 4. Aspirin 81 p.o. daily. 5. Amiodarone 200 mg p.o. daily. 6. Lasix 40 mg p.o. daily. 7. Potassium chloride 10 mEq p.o. daily. 8. Ceftin 500 mg p.o. daily for 5 days. 9. [place] 5-325 one p.o. q.6h. p.r.n. for pain. 10. Metoprolol 75 mg p.o. t.i.d. 11. Multivitamin 1 tablet p.o. daily. 12. Nitrostat 0.4 mg sublingual q.5 p.r.n. FOLLOWUP: 1. Follow up with Dr. [place]. 2. Followup with Dr. Leal and primary care physician, Dr. Uriel Brizuela and Cardiology, Dr. Forrest. 3. Diet heart-healthy diet. 4. Activity as tolerated. FOLLOWUP INSTRUCTIONS: Patient is advised to complete a dose of Cefitin and follow up DR. Leal and Oncology . Patient is being discharged to home with stable function but overall prognosis is guarded. More than 40 minutes spent towards the discharge of the patient. MTDD
== END 2016-11-11 19:21 | disposition home health service (06) | DRG 809 ==
LOC: EC 12:59 → 6SEL 13:49
PROVIDERS: ADMIT Hospitalist; ATTEND Hospitalist
PROC: 30243R1 Transfusion of Nonautologous Platelets into Central Vein, Percutaneous Approach (ICD-10-PCS; principal; 2016-11-04)
PROC: 30243N1 Transfusion of Nonautologous Red Blood Cells into Central Vein, Percutaneous Approach (ICD-10-PCS; 2016-11-05)
DX: D70.9 Neutropenia, unspecified (principal); N17.9 Acute kidney failure, unspecified; C83.30 Diffuse large B-cell lymphoma, unspecified site; I48.92 Unspecified atrial flutter; I48.0 Paroxysmal atrial fibrillation; I95.9 Hypotension, unspecified; R50.81 Fever presenting with conditions classified elsewhere; E83.42 Hypomagnesemia; D61.810 Antineoplastic chemotherapy induced pancytopenia; T45.1X5A Adverse effect of antineoplastic and immunosuppressive drugs, initial encounter; E78.5 Hyperlipidemia, unspecified; E87.6 Hypokalemia; I10 Essential (primary) hypertension; R26.9 Unspecified abnormalities of gait and mobility; T50.2X5A Adverse effect of carbonic-anhydrase inhibitors, benzothiadiazides and other diuretics, initial encounter; Z79.82 Long term (current) use of aspirin; Z79.01 Long term (current) use of anticoagulants; Z79.899 Other long term (current) drug therapy; Z82.49 Family history of ischemic heart disease and other diseases of the circulatory system
CPT/HCPCS: 71010; 71020; 80048; 80053; 80061; 80076; 80202; 81001; 82550; 82553; 83605; 83735; 84439; 84443; 84484; 85025; 86850; 86900; 86901; 86920; 87040; 87086; 87502; 93005; 94760; 96365; 96366; 96376; 99291

== ENCOUNTER 2016-11-24 19:06 | Inpatient (IN) | payer MEDICARE ==
[2016-11-24] MEDS ORDERED: IV VANCOMYCIN PER PHARMACY 1 EACH MISC MISCELLANE PRN (19:47)
[2016-11-24] MEDS ORDERED: CEFEPIME 2 GM in SODIUM CHLORIDE 0.9% 50 ML IVPB STA (19:47)
--- NOTE | 2016-11-24 19:51 | ED ---
SOB HPI - General Chief Complaint: Shortness of Breath Stated Complaint: LENIN/Palpitations Time Seen by Provider: 11/24/16 19:10 Source: patient, EMS Mode of arrival: EMS Limitations: no limitations - History of Present Illness Initial Comments: This patient is an 81-year-old woman who has a history of diffuse, large B cell non-Hodgkin's lymphoma. She arrives here as a transfer from Hospital. The patient states she had gone there earlier today to be seen about having a nonproductive cough that has been going on since she woke up. While she was there patient was reportedly found to have atrial fibrillation with a rapid ventricular rate and also to have pancytopenia. She was started on Cardizem by IV and transferred here. The patient has had 3 rounds of chemotherapy. He denies any fever associated with the cough. Patient denies chest pain. She had been admitted during October for febrile neutropenia. MD Complaint: cough -: hour(s) Consistency: constant Improves With: nothing Worsens With: nothing Treatments Prior to Arrival: oxygen, other - Related Data Home Medications Medication Instructions Recorded Confirmed Atorvastatin [Lipitor] 20 mg PO DAILY 04/21/16 11/24/16 Amiodarone [Cordarone] 400 mg PO DAILY 11/04/16 11/24/16 Furosemide [Lasix] 40 mg PO DAILY 11/04/16 11/24/16 Potassium Chloride [Klor-Con 10] 10 meq PO DAILY 11/04/16 11/24/16 Aspirin 81 mg PO HS 11/24/16 11/24/16 HYDROcodone/APAP 5-325MG [[place] 1 tab PO Q6HR PRN 11/24/16 11/24/16 5-325] Multivitamins, Thera [Multivitamin] 1 tab PO DAILY@1200 11/24/16 11/24/16 Previous Rx's Medication Instructions Recorded Metoprolol Tartrate [Lopressor] 75 mg PO TID #90 tab 11/11/16 Allergies Allergy/AdvReac Type Severity Reaction Status Date / Time No Known Allergies Allergy Verified 11/24/16 19:50 Review of Systems ROS Statement: Those systems with pertinent positive or pertinent negative responses have been documented in the HPI. ROS Other: All systems not noted in ROS Statement are negative. Constitutional: Reports: weakness. Denies: fever, chills ENT: Denies: throat pain Respiratory: Reports: cough. Denies: dyspnea, wheezes, hemoptysis, stridor Cardiovascular: Reports: palpitations, dyspnea on exertion, orthopnea, edema. Denies: chest pain, syncope Gastrointestinal: Denies: abdominal pain, vomiting, diarrhea, melena, hematochezia Genitourinary: Denies: dysuria, frequency, hematuria Musculoskeletal: Denies: back pain Skin: Denies: rash Neurological: Reports: weakness (Generalized). Denies: numbness, paresthesias Past Medical History Past Medical History: Atrial Fibrillation, Hyperlipidemia, Hypertension Additional Past Medical History / Comment(s): LT PAROTID RUMOR, Lymphoma. PT STATED HAD CHEMO 10-28-, PT STATED HAD BEEN ON A DIRUTETIC AND LOST 19#, APPETITE DOWN A BIT NOT SURE IF ALL WT LOST WAS FLUID WT. PT STATED HAD 2 EPISODE OF DIARRHEA DAY OF ADMIT. History of Any Multi-Drug Resistant Organisms: None Reported Past Surgical History: Appendectomy, Cholecystectomy, Hysterectomy Additional Past Surgical History / Comment(s): lt cataract, LT PAROTIS TUMOR REMOVED, RT UPPER CHEST PORT. Past Anesthesia/Blood Transfusion Reactions: No Reported Reaction Past Psychological History: No Psychological Hx Reported Smoking Status: Never smoker Past Alcohol Use History: Occasional Additional Past Alcohol Use History / Comment(s): Patient is a lifelong nonsmoker. She denies any medical marijuana, marijuana, street drug use. She drinks alcohol a beer occasionally. She lives alone and is very independent. There are no pets in the home. She worked in [employer] and has been retired for many years. Past Drug Use History: None Reported - Past Family History Mother History Unknown: Yes Family Medical History: Cancer Father Family Medical History: Myocardial Infarction ([place]) General Exam Limitations: no limitations General appearance: alert, in no apparent distress Head exam: Present: atraumatic, normocephalic Eye exam: Present: normal appearance, other (Conjunctiva pallor). Absent: scleral icterus, conjunctival injection ENT exam: Present: mucous membranes dry Neck exam: Present: normal inspection, full ROM Respiratory exam: Present: normal lung sounds bilaterally. Absent: respiratory distress, wheezes, rales, rhonchi, stridor, decreased breath sounds Cardiovascular Exam: Present: tachycardia, irregular rhythm, systolic murmur. Absent: diastolic murmur, rubs, gallop GI/Abdominal exam: Present: soft. Absent: tenderness, guarding, rebound, mass, pulsatile mass Extremities exam: Present: full ROM, normal capillary refill, pedal edema ( There is edema bilaterally to below the knees). Absent: calf tenderness Back exam: Absent: CVA tenderness (R), CVA tenderness (L) Neurological exam: Present: alert Skin exam: Present: warm, dry, intact, pallor. Absent: rash, cyanosis, diaphoretic, petechiae, mottled Course Vital Signs 11/24/16 11/24/16 11/24/16 19:10 19:15 20:00 Temperature 99.2 F Pulse Rate 115 H 115 H Pulse Rate [ 122 H Bilateral Pulse Oximetery] Respiratory 18 20 Rate Blood Pressure 126/71 O2 Sat by Pulse 99 98 Oximetry 11/24/16 11/24/16 21:26 21:39 Temperature 99.2 F Pulse Rate 123 H Pulse Rate [ Bilateral Pulse Oximetery] Respiratory 20 20 Rate Blood Pressure 120/74 O2 Sat by Pulse 99 Oximetry Medical Decision Making - Medical Decision Making This patient is an 81-year-old woman undergone recent chemotherapy for B-cell lymphoma non-Hodgkin's lymphoma. She is transferred here for atrial fibrillation with a rapid ventricular rate and also for pancytopenia. Case discussed with Dr. Palmer from oncology and the patient will be covered with vancomycin and cefepime for the neutropenia. Blood and urine cultures sent. Case discussed with Dr. Freeman, covering for the hospitalist physicians. Patient on Cardizem for the atrial fibrillation. To have cardiology consultation. - Lab Data Result diagrams: 11/24/16 20:43 Critical Care Time Critical Care Time: Yes (35 minutes) Disposition Clinical Impression: Pancytopenia, Atrial fibrillation Disposition: ADMITTED IP TO THIS HOSP Condition: Serious
[2016-11-24] MEDS ORDERED: DILTIAZEM 5 MG/ML 25 ML VIAL IV STA (20:03)
[2016-11-24] MEDS ORDERED: DILTIAZEM 125 MG in SODIUM CHLORIDE 0.9% 100 ML IV ONE (20:03)
[2016-11-24] MEDS ORDERED: VANCOMYCIN 1,500 MG in SODIUM CHLORIDE 0.9% 250 ML IVPB ONE (21:00)
[2016-11-24] MEDS ORDERED: NALOXONE 0.4 MG/ML 1 ML VIAL IV PRN (21:04)
[2016-11-24 21:10] LABS: Calcium 8.8 mg/dL (8.4-10.2); Potassium 3.6 mmol/L (3.5-5.1)
[2016-11-24] MEDS: SODIUM CHLORIDE 0.9% 1,000 ML IV SCH (21:19)
[2016-11-24 21:54] LABS: Creatine Kinase <20 U/L (30-135)
[2016-11-24 22:06] LABS: Creatine Kinase MB 0.4 ng/mL (0.0-2.4)
[2016-11-24 22:17] LABS: Troponin I 0.057 ng/mL (0.000-0.034)
[2016-11-24] MEDS: HYDROcodone/APAP 5-325MG 1 EACH TAB PO PRN (22:18)
[2016-11-24] MEDS: METOPROLOL TARTRATE 25 MG TAB PO SCH (23:43)
[2016-11-25 01:46] LABS: Creatine Kinase <20 U/L (30-135)
[2016-11-25 01:59] LABS: Creatine Kinase MB 0.4 ng/mL (0.0-2.4)
[2016-11-25] MEDS: HYDROcodone/APAP 5-325MG 1 EACH TAB PO PRN ×2 (06:41→12:35)
[2016-11-25 07:18] LABS: Anisocytosis Slight; Basophils % (A) 1 %; CH 31.9; Eosinophils % (A) 10 %; HCT 20.2 % (34.0-46.0); Hypochromasia Slight; Luc # (Auto) 0.01; Luc % (Auto) 3; Lymphocytes # (A) 0.2 k/uL (1.0-4.8); Lymphocytes % (A) 65 %; MCH 30.9 pg (25.0-35.0); MCHC 30.7 g/dL (31.0-37.0); MCV 100.6 fL (80.0-100.0); Macrocytosis Moderate; Mean Platelet Volume 10.2; Monocytes % (A) 4 %; Neutrophils # (A) 0.1 k/uL (1.3-7.7); Neutrophils % (A) 17 %; RBC 2.01 m/uL (3.80-5.40)
[2016-11-25 07:22] LABS: Calcium 8.7 mg/dL (8.4-10.2); Potassium 4.3 mmol/L (3.5-5.1); Total Bilirubin 1.5 mg/dL (0.2-1.3); Total Protein 4.3 g/dL (6.3-8.2)
[2016-11-25 07:36] LABS: WBC 0.3 k/uL (3.8-10.6)
[2016-11-25 07:37] LABS: HGB 6.2 gm/dL (11.4-16.0)
[2016-11-25 08:35] LABS: Manual Review Performed
[2016-11-25] MEDS ORDERED: POTASSIUM CHLORIDE ER 10 MEQ TAB.ER.PRT PO SCH (09:00)
[2016-11-25] MEDS ORDERED: VANCOMYCIN 1,500 MG in SODIUM CHLORIDE 0.9% 250 ML IVPB SCH (09:00)
[2016-11-25] MEDS ORDERED: FUROSEMIDE 40 MG TAB PO SCH (09:00)
[2016-11-25] MEDS ORDERED: CEFEPIME 2 GM in SODIUM CHLORIDE 0.9% 50 ML IVPB SCH (09:00)
[2016-11-25 09:01] LABS: Creatine Kinase <20 U/L (30-135)
[2016-11-25 09:13] LABS: Creatine Kinase MB 0.5 ng/mL (0.0-2.4)
[2016-11-25 09:18] LABS: Troponin I 0.058 ng/mL (0.000-0.034)
[2016-11-25] MEDS: ATORVASTATIN 20 MG TAB PO SCH (09:34)
[2016-11-25] MEDS: AMIODARONE 200 MG TAB PO SCH (09:34)
[2016-11-25] MEDS: METOPROLOL TARTRATE 25 MG TAB PO SCH ×3 (09:35→22:29)
--- NOTE | 2016-11-25 11:01 | CONS ---
DATE OF CONSULTATION: CHIEF COMPLAINT: Fatigue, tiredness, shortness of breath. Amparo is an 81-year-old lady with history of paroxysmal atrial fibrillation, pancytopenia, lymphoma on chemotherapy, hypertension, dyslipidemia, came to hospital feeling weak, fatigued, tired, and was found to be in atrial fibrillation with poorly controlled ventricular rate. She converted back to sinus rhythm and at the time of my evaluation, she is normal sinus rhythm and states that she is feeling better. She has pancytopenia with severe anemia with hemoglobin of 6.2, platelet count of 29, white cell count of 0.3. His tropes are in the rojas zone at 0.05, 0.05, 0.05 of unclear clinical significance. Patient is not a candidate for anticoagulation at this time. She is already on amiodarone for rhythm suppression which we are going to continue. Past medical history is significant for lymphoma, pancytopenia, hypertension, paroxysmal atrial fibrillation. Medications include Lopressor 75 t.i.d., K-Dur 10 q. daily, Lasix 40 q. daily, Lipitor 20 q. daily, aspirin and amiodarone. ALLERGIES: There are no known drug allergies. Family history is negative for premature coronary artery disease. Social history is negative for current smoking, EtOH abuse of drug abuse. REVIEW OF SYSTEMS: HEENT is unremarkable. CARDIAC: As described above. RESPIRATORY: As described above. GI: Negative. GENITOURINARY: Negative. MUSCULOSKELETAL: Significant for arthralgias. CONSTITUTIONAL: Not feeling well. ONCOLOGICAL: Significant for lymphoma, pancytopenia. HEMATOLOGICAL: Pancytopenia. The rest of the system review is not relevant. On exam, heart rate is 58 beats per minute, blood pressure 123/56, respiratory rate is 18, afebrile. There is no jugular venous distention, carotid upstroke is diminished. Heart exam reveals first and second heart sounds. No gallop. Abdomen is soft. Exam of the extremities did not reveal edema. Peripheral pulses are felt. ASSESSMENT: 1. Paroxysmal atrial fibrillation. 2. Lymphoma, status post chemotherapy with pancytopenia. PLAN: Patient will continue with current medical therapy including the amiodarone. Will continue her current medical therapy including amiodarone. Her prognosis is guarded. She is not a candidate for anticoagulant.
[2016-11-25] MEDS: MULTIVITAMINS, THERA 1 EACH TAB PO SCH (12:38)
--- NOTE | 2016-11-25 14:44 | XR ---
EXAMINATION TYPE: XR chest 1V DATE OF EXAM: 11/25/2016 2:06 PM COMPARISON: Prior chest x-ray November, October HISTORY: Cough TECHNIQUE: Single frontal view of the chest is obtained. FINDINGS: There is no pneumothorax seen. There is blunting of the left costophrenic angle. There ar e overlying cardiac leads. The cardiac silhouette size is within normal limits. Central venous isha ter is stable via the right jugular approach. Retrocardiac density is again noted. The osseous struct ures are intact. IMPRESSION: Left lower lobe atelectasis versus pneumonia and associated effusion. Patient is rotated . Follow-up recommended.
--- NOTE | 2016-11-25 15:51 | HP ---
DATE OF ADMISSION: 11/24/2016 This is an 81 -year-old female came in with complaints of generalized weakness. The patient has diffuse B cell lymphoma. The patient is severely neutropenic ( ) WBC count. The patient did not have any fevers. The patient has a nonproductive cough. The patient denied any fever, chills. The patient denied any nausea or vomiting. The patient was complaining of severe fatigue that has been going on for three days, ( ) improved now. The patient found to be in atrial fibrillation. ( ) pancytopenia, very low platelet count and low hemoglobin. The patient was started on anticoagulation. In the past, the patient was on anticoagulation which is being held at this point in time. Patient is feeling much better. Patient The patient had three rounds of chemotherapy last week. The patient denied any fever, chills, the patient denied any dysuria, denied any nausea, vomiting. REVIEW OF SYSTEMS: CONSTITUTIONAL: No fever, no malaise, no fatigue. HEENT: No recent visual problems or hearing problems. Denied any sore throat. CARDIOVASCULAR: No chest pain, orthopnea, PND, no palpitations, no syncope. PULMONARY: As described in HPI. GASTROINTESTINAL: No diarrhea, no nausea, no vomiting, no abdominal pain. Normoactive bowel sounds. NEUROLOGICAL: No headaches, no weakness, no numbness. HEMATOLOGICAL: Denies any bleeding or petechiae. GENITOURINARY: Denies any burning micturition, frequency, or urgency. MUSCULOSKELETAL/RHEUMATOLOGICAL: Denies any joint pain, swelling, or any muscle pain. ENDOCRINE: Denies any polyuria or polydipsia. The rest of the 14 point review of systems is negative. Home medications include: 1. Atorvastatin. 2. Amiodarone. 3. Lasix. 4. Potassium chloride. 5. Aspirin. 6. Hydrocodone acetaminophen. 7. Multivitamins. 8. Metoprolol 75 p.o. t.i.d. ALLERGIES: No known drug allergies. Past medical history is significant for atrial fibrillation lymphoma recently diagnosed receiving chemotherapy, hyperlipidemia, ( ) recently treated for ( ). SURGICAL HISTORY: Appendectomy, cholecystectomy, hysterectomy. SOCIAL HISTORY: Denied any smoking, alcohol abuse or any drug abuse. FAMILY HISTORY: Mother had cancer. Father had myocardial infarction. PHYSICAL EXAMINATION: VITAL SIGNS: Temperature afebrile throughout this hospitalization. The patient denied any fevers at home, pulse rate of ( ), the patient's ( ) converted to ( ) the patient was on IV Cardizem drip and the patient was ( ) regular rate and rhythm. Respiratory rate 20, blood pressure 136/( ). Saturating at 98% on room air. GENERAL: The patient is alert and oriented x3, not in any acute distress. Well developed, well nourished. HEENT: Pupils are round and equally reacting to light. EOMI. No scleral icterus. No conjunctival pallor. Normocephalic, atraumatic. No pharyngeal erythema. No thyromegaly. CARDIOVASCULAR: S1 and S2 present. No murmurs, rubs, or gallops. PULMONARY: Chest is clear to auscultation, no wheezing or crackles. ABDOMEN: Soft, nontender, nondistended, normoactive bowel sounds. No palpable organomegaly. MUSCULOSKELETAL: No joint swelling or deformity. EXTREMITIES: Patient does have some minimal pedal edema bilateral lower extremity pitting. NEUROLOGICAL: Gross neurological examination did not reveal any focal deficits. SKIN: No rashes. LABORATORY DATA: The patient has very low hemoglobin, the patient has severe pancytopenia with platelet count of around 40,000 and WBC 400. ASSESSMENT AND PLAN: 1. Generalized ( ) fatigue ( ) Patient is off Cardizem drip. Patient was resumed back on amiodarone and beta cassandra. The patient is not on any anticoagulation at this point in time. The patient is not a candidate for anticoagulation because of the above mentioned reasons. 2. Severe pancytopenia without any signs or symptoms of ( ) or fever. Patient will not need any antibiotics at this point of time. Antibiotics will be discontinued. Patient probably can be given Azithromycin for ( ) bronchitis. 3. Dry cough, most probably related to bronchitis. We will obtain a chest x-ray to make sure the patient does not have any atypical pneumonic process. 4. Hyperlipidemia. 5. Hypertension. 6. Acute renal failure, intravascular volume depletion, and patient's creatinine 1.1 probably due to excessive diuretic, will hold off diuretics. Patient is receiving ( ) pancytopenia anyways because of that reason and the patient has pedal edema ( ) does have concerns of ( ) cannot eat ( ) food as her ( ) also improved at this point of time. I will encourage her drink lots of water ( ) kidney function is not ( ). 7. Acute renal failure ( ) probably related to excessive diuretic therapy, which will be discontinued. Patient's last ejection fraction was within normal limits. Patient does not have any heart failure. Patient does not have any signs or symptoms of heart failure at this point in time. We will continue to monitor depending ( ) pancytopenia I will let oncology manage pancytopenia. The patient is currently receiving one unit of PRBC transfusion as her hemoglobin is 6.7.
[2016-11-25 17:16] LABS: Appearance,Urine Clear (Clear); Bilirubin,Urine Negative (Negative); Glucose,Urine (UA) Negative (Negative); Ketones,Urine Negative (Negative); Leukocyte Esterase,Urine Negative (Negative); Nitrite,Urine Negative (Negative); Protein,Urine Negative (Negative); Specific Gravity,Urine 1.006 (1.001-1.035); UA Billing (MACRO vs. MICRO) CHEM; Urobilinogen,Urine <2.0 mg/dL (<2.0)
--- NOTE | 2016-11-25 18:32 | P.CONS ---
History of Present Illness - Reason for Consult Consult date: 11/25/16 pancytopenia Requesting physician: Gigi Sawyer - Chief Complaint weakness - History of Present Illness Ms. Monsivais is a very pleasant female pt of Dr. [place] who recently received her 3rd cycle of R-CEOP, this regimen was changed from R-CHOP after cycle 2 when pt was diagnosed with cardiac arrhythmia. Pt has been admitted 3 times in the last 2 months for cardiac related side effects. When seen today she is tired, denies fever, nausea, appetite is fair, she has a cough that is persistent, started about 2 days ago and has just progressively worsened, no hemoptysis, abd pain, indigestion, diarrhea, dysuria or hamturia. She feels better now then she did on admission. Malignancy history: Pt admitted 04/27 for a painful lump in the left cheek area, present for 3-4 months prior, it would fluctuate in size. It enlarged and was painful acutely which brought her to hospital, US on 04/23/16 revealed a solid lesion involving the posterior left aspect of the parotid gland, measuring 2.9 x 2.1 x 2.6 cm as well as multiple other smaller solid lesions. FNA on the same day revealed only necrotic material. Her symptoms improved with antibiotics but on f/u with ENT she had a persistent mass, that started to enlarge. Excisional biopsy on 07/04/16 was positive for a diffuse large B cell NHL, tumor positive for C-MYC, BCl 2 and 6 expression, ordered after discussion with pathologist. 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 PET scans showed widespread uptake in head and neck, mediastinal, abdominal and inguinal nodes. LVEF on ECHO was normal. She was started on treatment with R-CHOP in 08/28. Chon was substituted with VP16 due to an admission for a-flutter with RVR and CHF prior to cycle 3. She has had slow recovery with these last 3 cycles. Review of Systems All systems: negative Constitutional: Reports as per HPI Past Medical History Past Medical History: Atrial Fibrillation, Cancer, Hyperlipidemia, Hypertension Additional Past Medical History / Comment(s): LT PAROTID RUMOR, Lymphoma. PT STATED HAD CHEMO 10-28-16, PT STATED HAD BEEN ON A DIRUTETIC AND LOST 19#, APPETITE DOWN A BIT NOT SURE IF ALL WT LOST WAS FLUID WT. PT STATED HAD 2 EPISODE OF DIARRHEA DAY OF ADMIT. History of Any Multi-Drug Resistant Organisms: None Reported Past Surgical History: Appendectomy, Cholecystectomy, Hysterectomy Additional Past Surgical History / Comment(s): lt cataract, LT PAROTIS TUMOR REMOVED, RT UPPER CHEST PORT. Past Anesthesia/Blood Transfusion Reactions: No Reported Reaction Past Psychological History: No Psychological Hx Reported Smoking Status: Never smoker Past Alcohol Use History: Occasional Additional Past Alcohol Use History / Comment(s): Patient is a lifelong nonsmoker. She denies any medical marijuana, marijuana, street drug use. She drinks alcohol a beer occasionally. She lives alone and is very independent. There are no pets in the home. She worked in [employer] and has been retired for many years. Past Drug Use History: None Reported - Past Family History Mother History Unknown: Yes Family Medical History: Cancer Father Family Medical History: Myocardial Infarction (CT) Medications and Allergies Home Medications Medication Instructions Recorded Confirmed Type Atorvastatin [Lipitor] 20 mg PO DAILY 04/21/16 11/24/16 History Amiodarone [Cordarone] 400 mg PO DAILY 11/04/16 11/24/16 History Furosemide [Lasix] 40 mg PO DAILY 11/04/16 11/24/16 History Potassium Chloride [Klor-Con 10] 10 meq PO DAILY 11/04/16 11/24/16 History Aspirin 81 mg PO HS 11/24/16 11/24/16 History HYDROcodone/APAP 5-325MG [Vernalis 1 tab PO Q6HR PRN 11/24/16 11/24/16 History 5-325] Multivitamins, Thera [Multivitamin] 1 tab PO DAILY@1200 11/24/16 11/24/16 History Allergies Allergy/AdvReac Type Severity Reaction Status Date / Time No Known Allergies Allergy Verified 11/24/16 19:50 Physical Exam Vitals: Vital Signs Temp Pulse Pulse Resp BP BP BP 11/25/16 16:00 109 H 16 11/25/16 15:00 97.8 F 109 H 16 123/65 11/25/16 14:26 97.8 F 109 H 16 123/65 11/25/16 13:56 97.2 F L 101 H 18 118/65 11/25/16 13:46 97 F L 103 H 18 103/68 11/25/16 13:36 97.5 F L 66 16 121/59 11/25/16 12:00 71 20 115/57 11/25/16 08:00 97.0 F L 63 16 109/56 11/25/16 06:34 76 18 123/56 11/25/16 05:08 96.5 F L 58 L 18 123/75 11/25/16 04:38 97.9 F 63 18 115/58 11/25/16 04:28 97 F L 63 18 115/59 11/25/16 04:00 96.9 F L 69 18 108/55 11/25/16 00:00 96 18 121/53 11/24/16 22:30 96.8 F L 96 18 132/67 11/24/16 21:39 20 11/24/16 21:26 99.2 F 123 H 20 120/74 11/24/16 20:00 115 H 20 Pulse Ox 11/25/16 16:00 11/25/16 15:00 98 11/25/16 14:26 98 11/25/16 13:56 98 11/25/16 13:46 11/25/16 13:36 96 11/25/16 12:00 93 L 11/25/16 08:00 98 11/25/16 06:34 11/25/16 05:08 100 11/25/16 04:38 99 11/25/16 04:28 11/25/16 04:00 93 L 11/25/16 00:00 94 L 11/24/16 22:30 95 11/24/16 21:39 11/24/16 21:26 99 11/24/16 20:00 98 Intake and Output 11/25/16 11/25/16 11/25/16 06:59 14:59 22:59 Intake Total 201 1260 310 Output Total 1 Balance 201 1259 310 Intake: IV 560 Cefepime 2 gm In Sodium 50 Chloride 0.9% 50 ml @ 100 mls/hr IVPB ONCE STA Rx# :[id number] Diltiazem 125 mg In 50 Sodium Chloride 0.9% 100 ml @ 5 MG/HR 5 mls/hr IV .Q24H ONE Rx#:[id number] Sodium Chloride 0.9% 1, 210 000 ml @ 20 mls/hr IV . Q24H [facility] Rx#:[id number] Vancomycin 1,500 mg In 250 Sodium Chloride 0.9% 250 ml @ 125 mls/hr IVPB ONCE ONE Rx#:[id number] Oral 700 Blood Product 201 0 310 Platelet Irr Pheresis 2 201 Acda Unit [id number] As-1 Unit 0 310 [id number] Output: Stool 1 Other: Voiding Method Bedside Commode Bedside Commode # Voids 1 2 # Bowel Movements 1 0 Weight 88 kg 88 kg Patient Weight 11/26/16 06:59 Weight 88 kg - Constitutional General appearance: average body habitus, cooperative, no acute distress - EENT Eyes: anicteric sclerae, normal appearance ENT: normal oropharynx - Neck Neck: no lymphadenopathy - Respiratory Respiratory: bilateral: CTA - Cardiovascular Heart sounds: normal: S1, S2 leg Peripheral Edema: bilateral: 3+, Pitting - Gastrointestinal General gastrointestinal: no absent bowel sounds, no decreased bowel sounds, no distended, no hepatomegaly, no hyperactive bowel sounds, normal bowel sounds, no organomegaly, no rigid, no scaphoid, soft, no splenomegaly, no tenderness, no umbilical hernia, no ventral hernia - Integumentary Integumentary: pale - Neurologic Neurologic: CNII-XII intact - Musculoskeletal Musculoskeletal: generalized weakness, strength equal bilaterally - Psychiatric Psychiatric: A&O x's 3, appropriate affect, intact judgment & insight Results CBC & Chem 7: 11/25/16 06:30 11/25/16 06:30 Labs: Abnormal Lab Results - Last 24 Hours (Table) 11/24/16 11/24/16 11/25/16 Range/Units 20:43 20:43 01:20 WBC (3.8-10.6) k/uL RBC (3.80-5.40) m/uL Hgb (11.4-16.0) gm/dL Hct (34.0-46.0) % MCV (80.0-100.0) fL MCHC (31.0-37.0) g/dL RDW (11.5-15.5) % Plt Count (150-450) k/uL Neutrophils # (1.3-7.7) k/uL Lymphocytes # (1.0-4.8) k/uL Carbon Dioxide 36 H (22-30) mmol/L BUN 42 H (7-17) mg/dL Creatinine 1.14 H (0.52-1.04) mg/dL Glucose 166 H (74-99) mg/dL Total Bilirubin (0.2-1.3) mg/dL Total Creatine Kinase <20 L <20 L (30-135) U/L Troponin I 0.057 H* 0.050 H* (0.000-0.034) ng/mL Total Protein (6.3-8.2) g/dL Albumin (3.5-5.0) g/dL Crossmatch 11/25/16 11/25/16 11/25/16 Range/Units 02:00 06:30 06:30 WBC 0.3 L* (3.8-10.6) k/uL RBC 2.01 L (3.80-5.40) m/uL Hgb 6.2 L* D (11.4-16.0) gm/dL Hct 20.2 L (34.0-46.0) % MCV 100.6 H (80.0-100.0) fL MCHC 30.7 L (31.0-37.0) g/dL RDW 18.0 H (11.5-15.5) % Plt Count 29 L* (150-450) k/uL Neutrophils # 0.1 L (1.3-7.7) k/uL Lymphocytes # 0.2 L (1.0-4.8) k/uL Carbon Dioxide 35 H (22-30) mmol/L BUN 43 H (7-17) mg/dL Creatinine 1.14 H (0.52-1.04) mg/dL Glucose 191 H (74-99) mg/dL Total Bilirubin 1.5 H (0.2-1.3) mg/dL Total Creatine Kinase (30-135) U/L Troponin I (0.000-0.034) ng/mL Total Protein 4.3 L (6.3-8.2) g/dL Albumin 2.3 L (3.5-5.0) g/dL Crossmatch See Detail 11/25/16 Range/Units 08:26 WBC (3.8-10.6) k/uL RBC (3.80-5.40) m/uL Hgb (11.4-16.0) gm/dL Hct (34.0-46.0) % MCV (80.0-100.0) fL MCHC (31.0-37.0) g/dL RDW (11.5-15.5) % Plt Count (150-450) k/uL Neutrophils # (1.3-7.7) k/uL Lymphocytes # (1.0-4.8) k/uL Carbon Dioxide (22-30) mmol/L BUN (7-17) mg/dL Creatinine (0.52-1.04) mg/dL Glucose (74-99) mg/dL Total Bilirubin (0.2-1.3) mg/dL Total Creatine Kinase <20 L (30-135) U/L Troponin I 0.058 H* (0.000-0.034) ng/mL Total Protein (6.3-8.2) g/dL Albumin (3.5-5.0) g/dL Crossmatch Microbiology - Last 24 Hours (Table) 11/25/16 00:30 Urine Culture - Preliminary Urine,Clean Catch Chest x-ray: report reviewed Assessment and Plan (1) Pancytopenia Narrative/Plan: Secondary to chemotherapy. Pt has received 1 unit PRBCs and platelets, CBC in AM. NO GCSF at this time, pt received neulasta 6 days ago. Status: Acute (2) Diffuse large B-cell lymphoma Narrative/Plan: Pt has had 5/6 planned chemo treatments. She was changed to R-CEOP from R-CHOP due to arrhythmia after the 2nd cycle and is s/p 3 treatments. Completing last cycle of therapy will be discussed in outpatient setting, pt and tomy agree. Status: Chronic
[2016-11-25] MEDS: guaiFENesin-DM 100-10MG/5ML 10 ML CUP PO PRN (19:20)
[2016-11-25] MEDS ORDERED: ASPIRIN 81 MG CHEW PO SCH (21:00)
[2016-11-25] MEDS: SODIUM CHLORIDE 0.9% 1,000 ML IV SCH (22:28)
[2016-11-26] MEDS: AMIODARONE 200 MG TAB PO SCH (09:14)
[2016-11-26] MEDS: ATORVASTATIN 20 MG TAB PO SCH (09:14)
[2016-11-26] MEDS: AZITHROMYCIN 500 MG TAB PO SCH (09:14)
[2016-11-26] MEDS: HYDROcodone/APAP 5-325MG 1 EACH TAB PO PRN ×2 (09:15→23:04)
[2016-11-26] MEDS: METOPROLOL TARTRATE 25 MG TAB PO SCH (09:15)
[2016-11-26 10:39] LABS: Anisocytosis Slight; CH 31.6; CHCM 33.2; HCT 22.6 % (34.0-46.0); HDW 3.37; HGB 7.4 gm/dL (11.4-16.0); MCH 31.4 pg (25.0-35.0); MCHC 32.8 g/dL (31.0-37.0); MCV 95.9 fL (80.0-100.0); Macrocytosis Slight; Mean Platelet Volume 9.8; RBC 2.36 m/uL (3.80-5.40); RDW 18.2 % (11.5-15.5); WBC (Perox) 0
[2016-11-26 10:42] LABS: WBC 0.2 k/uL (3.8-10.6)
[2016-11-26 11:02] LABS: Add Differential Manual Differential
[2016-11-26 11:03] LABS: Anion Gap 7 mmol/L; Blood Urea Nitrogen 33 mg/dL (7-17); Calcium 8.1 mg/dL (8.4-10.2); Carbon Dioxide 35 mmol/L (22-30); Chloride 98 mmol/L (98-107); Glucose 150 mg/dL (74-99); Non-African American GFR(MDRD) 55 (>60 ml/min/1.73 sqM); Ovalocytes Present; Sodium 140 mmol/L (137-145); Tear Drop Cells Present
[2016-11-26] MEDS: IPRATROPIUM-ALBUTEROL 3 ML NEB INHALATION PRN ×3 (11:07→19:38)
[2016-11-26] MEDS ORDERED: Potassium Replacement Protocol 1 EACH MISC MISCELLANE PRN ×2 (11:44→21:28)
--- NOTE | 2016-11-26 12:45 | P.PN ---
Progress Note - Text This is a pleasant 81-year-old female patient with a past medical history significant for lymphoma on chemotherapy as well as history of paroxysmal atrial fibrillation was admitted to the hospital because of fatigue, weakness, and tiredness. The patient was found to be severely anemic with a hemoglobin around 6 and she is in process to receive one unit of packed RBC. We get involved in the care of the patient because she has been in and out atrial fibrillation. She is on metoprolol as well as amiodarone for heart rate control. She continues to be in and out atrial fibrillation which is likely to be triggered by the anemia. I am going to increase the dose of metoprolol 100 mg by mouth twice a day we'll continue monitor the heart rate. Beside that there is no need for any further cardiac workup. The patient is not a candidate to receive any anticoagulation.
[2016-11-26] MEDS: MULTIVITAMINS, THERA 1 EACH TAB PO SCH (12:57)
[2016-11-26] MEDS: POTASSIUM CHLORIDE ER 20 MEQ TAB.ER PO SCH ×4 (12:57→20:01)
--- NOTE | 2016-11-26 12:57 | XR ---
EXAMINATION TYPE: XR chest 2V DATE OF EXAM: 11/26/2016 12:46 PM COMPARISON: 11/25/2016 TECHNIQUE: PA and lateral views submitted. HISTORY: Follow-up pneumonia, cough FINDINGS: Persistent left lower lobe infiltrate and small effusion. Mediport catheter seen. No pneumothorax. He art size stable. Atherosclerotic change aorta. IMPRESSION: 1. Left lower lobe infiltrate and small effusion.
[2016-11-26 13:53] VITALS: BMI 29.5
--- NOTE | 2016-11-26 17:29 | P.PN ---
Subjective Pt seen today in f/u, she is very tearful today and wants to just cry, she did not even talk to her sister like she does every morning at 9AM. She is very tired and weak, no oral irritation, nausea, she continues to have cough, congestion, no dysuria, diarrhea or constipation, her legs are a little swollen today, she has not been up much. Objective - Vital Signs Vital signs: Vital Signs Temp 98.6 F 11/26/16 16:20 Pulse 112 H 11/26/16 16:20 Resp 18 11/26/16 16:20 BP 122/68 11/26/16 16:20 Pulse Ox 95 11/26/16 16:20 Intake & Output 11/25/16 11/26/16 11/26/16 18:59 06:59 18:59 Intake Total 1570 720 550 Output Total 1 1 Balance 1569 720 549 Weight 88 kg 88 kg Intake: IV 560 Cefepime 2 gm In Sodium 50 Chloride 0.9% 50 ml @ 100 mls/hr IVPB ONCE STA Rx# :[id number] Diltiazem 125 mg In 50 Sodium Chloride 0.9% 100 ml @ 5 MG/HR 5 mls/hr IV .Q24H ONE Rx#:[id number] Sodium Chloride 0.9% 1, 210 000 ml @ 20 mls/hr IV . Q24H [facility] Rx#:[id number] Vancomycin 1,500 mg In 250 Sodium Chloride 0.9% 250 ml @ 125 mls/hr IVPB ONCE ONE Rx#:[id number] Oral 700 720 240 Blood Product 310 310 Rc As-1 Unit 310 [id number] As-1 Unit 310 [id number] Output: Stool 1 1 Other: Voiding Method Bedside Commode Bedside Commode Bedside Commode # Voids 2 1 1 # Bowel Movements 0 - Constitutional General appearance: Present: average body habitus, cooperative, mild distress - EENT Eyes: Present: anicteric sclerae ENT: Present: normal oropharynx - Respiratory Respiratory: bilateral: diminished, rales (scattered) - Cardiovascular Rhythm: regular Heart sounds: normal: S1, S2 - Peripheral edema leg Peripheral Edema: bilateral: 3+ (not as tight today as yesterday), Pitting - Gastrointestinal General gastrointestinal: Present: normal bowel sounds, soft. Absent: absent bowel sounds, decreased bowel sounds, distended, hepatomegaly, hyperactive bowel sounds, organomegaly, rigid, scaphoid, splenomegaly, tenderness, umbilical hernia, ventral hernia - Integumentary Integumentary: Present: pale - Neurologic Neurologic: Present: CNII-XII intact - Musculoskeletal Musculoskeletal: Present: generalized weakness, strength equal bilaterally - Psychiatric Psychiatric Comment(s): pt tearful Psychiatric: Present: A&O x's 3, intact judgment & insight - Labs CBC & Chem 7: 11/26/16 10:05 11/26/16 16:35 Labs: Abnormal Lab Results - Last 24 Hours (Table) 11/25/16 11/26/16 11/26/16 Range/Units 02:00 10:05 10:05 WBC 0.2 L* (3.8-10.6) k/uL RBC 2.36 L (3.80-5.40) m/uL Hgb 7.4 L (11.4-16.0) gm/dL Hct 22.6 L (34.0-46.0) % RDW 18.2 H (11.5-15.5) % Plt Count 10 L* D (150-450) k/uL Potassium 3.0 L* (3.5-5.1) mmol/L Carbon Dioxide 35 H (22-30) mmol/L BUN 33 H (7-17) mg/dL Glucose 150 H (74-99) mg/dL Calcium 8.1 L (8.4-10.2) mg/dL Crossmatch See Detail 11/26/16 Range/Units 16:35 WBC (3.8-10.6) k/uL RBC (3.80-5.40) m/uL Hgb (11.4-16.0) gm/dL Hct (34.0-46.0) % RDW (11.5-15.5) % Plt Count (150-450) k/uL Potassium 3.3 L (3.5-5.1) mmol/L Carbon Dioxide (22-30) mmol/L BUN (7-17) mg/dL Glucose (74-99) mg/dL Calcium (8.4-10.2) mg/dL Crossmatch Microbiology - Last 24 Hours (Table) 11/25/16 00:30 Urine Culture - Final Urine,Clean Catch Assessment and Plan (1) Pancytopenia Narrative/Plan: 1 unit given for Hgb 7.4, symptomatic and with cardiac arrhythmia. No platelet transfusion at this time. WBC monitoring, she received neulasta 6 days ago so no GCSF at this time. CBC daily with supportive transfusions Status: Acute (2) Diffuse large B-cell lymphoma Narrative/Plan: Likely treatment will be discontinued due to significant side effects the last 3 cycles. Pt received 5/6 scheduled treatments, this should not seriously impact the treatment outcomes. This was discussed with pt and daughter. Pt will continue on monitoring and follow up. Status: Chronic Plan: Spiritual care offered for feeling down and depressed. Opened the blinds to let the sun in Pt getting another unit of blood Told pt we would see how she feels tomorrow, if any further concerns for depression may consult Psychiatry. Discussed case with Nursing and Attending, Nebulizer, IS, inhaler ordered for cough/congestion
--- NOTE | 2016-11-26 17:33 | P.PN ---
Subjective Date of service 11/26/2016. Progress note being dictated for Dr. Davis. Interval history: This 81-year-old female admitted with generalized weakness, fatigue, anemia, paroxysmal A. fib in a patient with lymphoma on chemotherapy. Evaluated by cardiology, beta cassandra dose increased and continues on amiodarone. A. fib better controlled. Yesterday receive 1 unit of packed RBCs for hemoglobin of 6.2, a hemoglobin 7.4. Potassium supplemented this morning for potassium of 3, recheck potassium 3.3, magnesium level pending. Renal function improving. Earlier complained of increased congestion, productive cough with pale yellow sputum with wheezing. Appetite poor. Small loose bowel movement. Minimal ambulation to and from bedside commode. Denies chest pain, palpitations or increasing shortness of breath. Objective - Vital Signs Vital signs: Vital Signs Temp 98.6 F 11/26/16 16:20 Pulse 112 H 11/26/16 16:20 Resp 18 11/26/16 16:20 BP 122/68 11/26/16 16:20 Pulse Ox 95 11/26/16 16:20 Intake & Output 11/25/16 11/26/16 11/26/16 18:59 06:59 18:59 Intake Total 1570 720 550 Output Total 1 1 Balance 1569 720 549 Weight 88 kg 88 kg Intake: IV 560 Cefepime 2 gm In Sodium 50 Chloride 0.9% 50 ml @ 100 mls/hr IVPB [facility] Rx# :[id number] Diltiazem 125 mg In 50 Sodium Chloride 0.9% 100 ml @ 5 MG/HR 5 mls/hr IV .Q24H [facility] Rx#:[id number] Sodium Chloride 0.9% 1, 210 000 ml @ 20 mls/hr IV . Q24H [facility] Rx#:[id number] Vancomycin 1,500 mg In 250 Sodium Chloride 0.9% 250 ml @ 125 mls/hr IVPB ONCE [facility] Rx#:[id number] Oral 700 720 240 Blood Product 310 310 Rc As-1 Unit 310 [id number] Rc As-1 Unit 310 [id number] Output: Stool 1 1 Other: Voiding Method Bedside Commode Bedside Commode Bedside Commode # Voids 2 1 1 # Bowel Movements 0 - Exam PHYSICAL EXAM: VITAL SIGNS: As above [] GENERAL: [Sitting up in bed, no acute distress] HEENT: [Pupils equal conjunctiva normal.] NECK: [Supple, no JVD] RESPIRATORY EFFORT:[Normal] LUNGS: Rhonchorous throughout, fine left basilar crackles] CARDIOVASCULAR[irregular, controlled ventricular rate, positive edema] GI: [Abdomen soft, nontender, positive bowel sounds.] PSYCH: [Alert and oriented -3, mood and affect normal.] NEURO: No focal deficits, moves all 4 extremities, strength and sensation grossly intact - Labs CBC & Chem 7: 11/26/16 10:05 11/26/16 16:35 Labs: Abnormal Lab Results - Last 24 Hours (Table) 11/25/16 11/26/16 11/26/16 Range/Units 02:00 10:05 10:05 WBC 0.2 L* (3.8-10.6) k/uL RBC 2.36 L (3.80-5.40) m/uL Hgb 7.4 L (11.4-16.0) gm/dL Hct 22.6 L (34.0-46.0) % RDW 18.2 H (11.5-15.5) % Plt Count 10 L* D (150-450) k/uL Potassium 3.0 L* (3.5-5.1) mmol/L Carbon Dioxide 35 H (22-30) mmol/L BUN 33 H (7-17) mg/dL Glucose 150 H (74-99) mg/dL Calcium 8.1 L (8.4-10.2) mg/dL Crossmatch See Detail 11/26/16 Range/Units 16:35 WBC (3.8-10.6) k/uL RBC (3.80-5.40) m/uL Hgb (11.4-16.0) gm/dL Hct (34.0-46.0) % RDW (11.5-15.5) % Plt Count (150-450) k/uL Potassium 3.3 L (3.5-5.1) mmol/L Carbon Dioxide (22-30) mmol/L BUN (7-17) mg/dL Glucose (74-99) mg/dL Calcium (8.4-10.2) mg/dL Crossmatch Microbiology - Last 24 Hours (Table) 11/25/16 00:30 Urine Culture - Final Urine,Clean Catch Assessment and Plan Plan: 1. [Generalized weakness, fatigue with anemia and A. fib with pancytopenia]. 2. [Paroxysmal A. fib with RVR, status post Cardizem drip]. Not a candidate for anticoagulation. 3. [ severe pancytopenia ]. 4. Acute Bronchitis, possible acute left lower lobe pneumonia].chest x-ray reporting persistent left lower lobe infiltrate, small effusion 5. [ Hyperlipidemia]. 6. [ Hypertension]. 7. [ Acute renal failure secondary to dehydration and diuresing]. 8. Anemia of chronic disease, status post transfusion of packed RBCs, in a patient with diffuse B-cell lymphoma Plan: Continue on current medication regime, antibiotics, monitoring and symptomatic treatment. Symbicort and nebulized bronchodilators added to med regime. Potassium supplemented as ordered. Magnesium level pending. Close monitoring of CBC, electrolytes with repeat labs ordered for a.m. Prognosis guarded given multiple complex medical issues. The impression and plan of care has been dictated as directed. : I performed a H&P examination of this patient and discussed the same with the dictator. I agree with the dictator's note. Any additional findings/opinions/ etc. will be noted.
[2016-11-26] MEDS: SYMBICORT 160-4.5 MCG INHALER INHALATION SCH (19:38)
[2016-11-26] MEDS: guaiFENesin 600 MG TABLET.ER PO SCH (20:40)
[2016-11-26] MEDS: METOPROLOL TARTRATE 50 MG TAB PO SCH (20:41)
[2016-11-26] MEDS ORDERED: POTASSIUM CHLORIDE ER 20 MEQ TAB.ER PO SCH (22:00)
[2016-11-27] MEDS: HYDROcodone/APAP 5-325MG 1 EACH TAB PO PRN (04:13)
[2016-11-27 06:31] LABS: Anisocytosis Slight; CH 31.3; CHCM 33.2; HCT 25.1 % (34.0-46.0); HDW 3.41; HGB 8.3 gm/dL (11.4-16.0); Immature Gran Flag Marked; MCH 31.6 pg (25.0-35.0); MCHC 33.3 g/dL (31.0-37.0); MCV 94.9 fL (80.0-100.0); Macrocytosis Slight; Mean Platelet Volume 7.4; Poikilocytosis Slight; RBC 2.64 m/uL (3.80-5.40); RDW 17.5 % (11.5-15.5); WBC (Perox) 0.27
[2016-11-27 06:36] LABS: WBC 0.3 k/uL (3.8-10.6)
[2016-11-27] MEDS: SYMBICORT 160-4.5 MCG INHALER INHALATION SCH ×2 (07:53→20:53)
[2016-11-27 08:39] LABS: Add Differential Manual Differential
[2016-11-27 08:41] LABS: Manual Review Performed
[2016-11-27] MEDS: METOPROLOL TARTRATE 50 MG TAB PO SCH ×2 (08:50→20:42)
[2016-11-27] MEDS: AZITHROMYCIN 500 MG TAB PO SCH (08:50)
[2016-11-27] MEDS: guaiFENesin 600 MG TABLET.ER PO SCH ×2 (08:50→20:42)
[2016-11-27] MEDS: ATORVASTATIN 20 MG TAB PO SCH (08:51)
[2016-11-27] MEDS: AMIODARONE 200 MG TAB PO SCH (08:51)
[2016-11-27] MEDS: MULTIVITAMINS, THERA 1 EACH TAB PO SCH (11:08)
--- NOTE | 2016-11-27 12:51 | P.CNPUL ---
History of Present Illness Consult date: 11/27/16 Reason for consult: dyspnea, cough, pneumonia Chief complaint: Shortness of breath History of present illness: This is an 81-year-old female with a history of diffuse large B-cell non-Hodgkin 's lymphoma. She was apparently seen [facility] at one of [facility] and transferred down. I believe it was [facility]. I believe her primary physician is Dr. Brizuela. Anyway, the patient comes with complaints of nonproductive cough. She is a bit short of breath. I she was also found to have atrial fibrillation with rapid ventricular response. She had chemotherapy on September 17 and and was apparently found to be pancytopenic. She was started on Cardizem IV and transferred down to [facility]. She said multiple rounds I believe 5 rounds of chemotherapy of 6 planned. Her primary oncologist is Dr. Montana. I believe that we are consulted because of pneumonia in the left lung with a small left pleural effusion. She does have a wet congested sounding cough but she is not bringing up much or any phlegm. Doesn't feel particularly short of breath at this time. The atrial fibrillation is converted back to normal sinus rhythm. Her medical problems include a chronic atrial fibrillation hyperlipidemia hypertension left parotid tumor the B cell lymphoma, non-Hodgkin's and arthritis. ALLERGIES are none. Review of Systems A 12 point review of systems are positive for palpitations rapid heart beat fluttering as well as shortness of breath and nonproductive cough. All of those complaints other than the cough is present have pretty much abated. Past Medical History Past Medical History: Atrial Fibrillation, Cancer, Hyperlipidemia, Hypertension Additional Past Medical History / Comment(s): LT PAROTID RUMOR, Lymphoma. PT STATED HAD CHEMO 10-28-16, PT STATED HAD BEEN ON A DIRUTETIC AND LOST 19#, APPETITE DOWN A BIT NOT SURE IF ALL WT LOST WAS FLUID WT. PT STATED HAD 2 EPISODE OF DIARRHEA DAY OF ADMIT. History of Any Multi-Drug Resistant Organisms: None Reported Past Surgical History: Appendectomy, Cholecystectomy, Hysterectomy Additional Past Surgical History / Comment(s): lt cataract, LT PAROTIS TUMOR REMOVED, RT UPPER CHEST PORT. Past Anesthesia/Blood Transfusion Reactions: No Reported Reaction Past Psychological History: No Psychological Hx Reported Smoking Status: Never smoker Past Alcohol Use History: Occasional Additional Past Alcohol Use History / Comment(s): Patient is a lifelong nonsmoker. She denies any medical marijuana, marijuana, street drug use. She drinks alcohol a beer occasionally. She lives alone and is very independent. There are no pets in the home. She worked in [employer] and has been retired for many years. Past Drug Use History: None Reported - Past Family History Mother History Unknown: Yes Family Medical History: Cancer Father Family Medical History: Myocardial Infarction (ND) Medications and Allergies Home Medications Medication Instructions Recorded Confirmed Type Atorvastatin [Lipitor] 20 mg PO DAILY 04/21/16 11/24/16 History Amiodarone [Cordarone] 400 mg PO DAILY 11/04/16 11/24/16 History Furosemide [Lasix] 40 mg PO DAILY 11/04/16 11/24/16 History Potassium Chloride [Klor-Con 10] 10 meq PO DAILY 11/04/16 11/24/16 History Aspirin 81 mg PO HS 11/24/16 11/24/16 History HYDROcodone/APAP 5-325MG [[place] 1 tab PO Q6HR PRN 11/24/16 11/24/16 History 5-325] Multivitamins, Thera [Multivitamin] 1 tab PO DAILY@1200 11/24/16 11/24/16 History Allergies Allergy/AdvReac Type Severity Reaction Status Date / Time No Known Allergies Allergy Verified 11/24/16 19:50 Physical Exam Osteopathic Statement: *. No significant issues noted on an osteopathic structural exam other than those noted in the History and Physical/Consult. Vitals: Vital Signs Temp Pulse Pulse Resp BP BP BP 11/27/16 07:00 98.2 F 124 H 20 140/73 11/26/16 22:11 97.1 F L 118 H 20 129/80 11/26/16 20:55 124 H 24 11/26/16 19:51 108 H 11/26/16 19:41 104 H 11/26/16 19:39 100.7 F H 124 H 24 140/78 11/26/16 16:20 98.6 F 112 H 18 122/68 11/26/16 15:57 118 H 11/26/16 15:52 117 H 11/26/16 14:24 97.3 F L 117 H 18 108/68 11/26/16 13:45 98.8 F 117 H 18 126/67 11/26/16 12:50 97.6 F 112 H 18 110/68 Pulse Ox 11/27/16 07:00 96 11/26/16 22:11 97 11/26/16 20:55 11/26/16 19:51 11/26/16 19:41 11/26/16 19:39 96 11/26/16 16:20 95 11/26/16 15:57 11/26/16 15:52 11/26/16 14:24 95 11/26/16 13:45 96 11/26/16 12:50 951 H Intake and Output 11/26/16 11/27/16 11/27/16 22:59 06:59 14:59 Intake Total 310 400 Output Total 1 Balance 309 400 Intake: Oral 400 Blood Product 310 Rc As-1 Unit 310 [id number] Output: Stool 1 Other: Voiding Method Bedside Commode Bedside Commode # Voids 1 1 # Bowel Movements 1 No acute distress, oriented 3. Laying in bed. Oxygen in place. HEENT examination is grossly unremarkable. Neck supple. Full range of motion. No adenopathy. Neck veins are flat. Cardiovascular examination reveals regular rhythm rate. S1-S2 normal. No distinct murmur noted. Lungs reveal some crackles at the bases. Breath sounds diminished. No wheezes. No rhonchi. Abdomen soft bowel sounds are heard. Extremities are intact. Results - Laboratory Findings CBC and BMP: 11/27/16 06:10 11/26/16 21:00 Abnormal lab findings: Abnormal Labs 11/24/16 11/24/16 11/25/16 20:43 20:43 01:20 WBC RBC Hgb Hct MCV MCHC RDW Plt Count Neutrophils # Lymphocytes # Potassium Carbon Dioxide 36 H BUN 42 H Creatinine 1.14 H Glucose 166 H Calcium Magnesium Total Bilirubin Total Creatine Kinase <20 L <20 L Troponin I 0.057 H* 0.050 H* Total Protein Albumin Crossmatch 11/25/16 11/25/16 11/25/16 02:00 06:30 06:30 WBC 0.3 L* RBC 2.01 L Hgb 6.2 L* D Hct 20.2 L MCV 100.6 H MCHC 30.7 L RDW 18.0 H Plt Count 29 L* Neutrophils # 0.1 L Lymphocytes # 0.2 L Potassium Carbon Dioxide 35 H BUN 43 H Creatinine 1.14 H Glucose 191 H Calcium Magnesium Total Bilirubin 1.5 H Total Creatine Kinase Troponin I Total Protein 4.3 L Albumin 2.3 L Crossmatch See Detail 11/25/16 11/26/16 11/26/16 08:26 10:05 10:05 WBC 0.2 L* RBC 2.36 L Hgb 7.4 L Hct 22.6 L MCV MCHC RDW 18.2 H Plt Count 10 L* D Neutrophils # Lymphocytes # Potassium 3.0 L* Carbon Dioxide 35 H BUN 33 H Creatinine Glucose 150 H Calcium 8.1 L Magnesium Total Bilirubin Total Creatine Kinase <20 L Troponin I 0.058 H* Total Protein Albumin Crossmatch 11/26/16 11/26/16 11/27/16 16:35 16:35 06:10 WBC 0.3 L* RBC 2.64 L Hgb 8.3 L Hct 25.1 L MCV MCHC RDW 17.5 H Plt Count 17 L* D Neutrophils # Lymphocytes # Potassium 3.3 L Carbon Dioxide BUN Creatinine Glucose Calcium Magnesium 1.1 L Total Bilirubin Total Creatine Kinase Troponin I Total Protein Albumin Crossmatch - Diagnostic Findings Chest x-ray: image reviewed (Chest x-ray labs and medications are all reviewed.) Assessment and Plan (1) Pneumonia Status: Acute (2) Atrial fibrillation Status: Acute (3) Pancytopenia Status: Acute (4) Febrile neutropenia Status: Acute (5) Hypercholesterolemia Status: Acute (6) Hyperlipemia Status: Acute (7) Paroxysmal a-fib Status: Acute (8) Diffuse large B-cell lymphoma Status: Chronic Plan: Plan dated 11/27/2016 The chest x-ray labs and medications are reviewed. The chest x-ray definitely reveals an infiltrate in the left lower lobe with small left parapneumonic effusion. She is quite pancytopenic. Medications will be reviewed as well as. X-rays have been reviewed. Additional recommendations suggestions are forthcoming. She looks relatively comfortable. We'll recommend oxygen therapy antibiotics and bronchodilators. Time with Patient: Greater than 30
--- NOTE | 2016-11-27 16:26 | P.PN ---
Subjective Date of service 11/27/2016. Progress note being dictated for Dr. Harris Tejada history: This 81-year-old female admitted with generalized weakness, fatigue, anemia, paroxysmal A. fib in a patient with lymphoma, currently receiving chemotherapy outpatient, pancytopenia and multiple other medical issues. Maintained on beta cassandra,amiodarone. Last night bite a fever, T-max 100.7. Continues on Rocephin. Minimal productive cough, occasional pale yellow sputum. Evaluated by pulmonary with recommendations noted. Yesterday received both potassium and magnesium supplements with today's repeat labs pending. Diet intake improving, consumed 100% of breakfast this morning. Denies chest pain, palpitations or increasing shortness of breath. Review of systems: HEENT: Denies headache or focal deficits. Denies any dizziness or lightheadedness. Respiratory: Denies any increased shortness of breath. Cardiac: Denies any chest pain, palpitations. GI: Denies any nausea, vomiting, or diarrhea. Denies any abdominal tenderness. : Denies any dysuria. Psychiatry: Denies any anxiety or depression. Active Medications Acetaminophen (Tylenol Tab) 650 mg PO Q6HR PRN PRN Reason: Mild Pain or Fever > 100.5 Acetaminophen/Hydrocodone Bitart ([place] 5-325) 1 each PO Q6HR PRN PRN Reason: Moderate Pain Last Admin: 11/27/16 04:13 Dose: 1 each Albuterol/Ipratropium (Duoneb 0.5 Mg-3 Mg/3 Ml Soln) 3 ml INHALATION RT-QID PRN PRN Reason: Shortness Of Breath Or Wheezing Last Admin: 11/26/16 19:38 Dose: 3 ml Amiodarone HCl (Cordarone) 400 mg PO DAILY [facility] Last Admin: 11/27/16 08:51 Dose: 400 mg Atorvastatin Calcium (Lipitor) 20 mg PO DAILY [facility] Last Admin: 11/27/16 08:51 Dose: 20 mg Azithromycin (Zithromax) 500 mg PO DAILY [facility] Last Admin: 11/27/16 08:50 Dose: 500 mg Budesonide/Formoterol Fumarate (Symbicort 160-4.5 Mcg Inhaler) 2 puff INHALATION RT-BID [facility] Last Admin: 11/27/16 07:53 Dose: 2 puff Guaifenesin (Mucinex) 600 mg PO Q12HR [facility] Last Admin: 11/27/16 08:50 Dose: 600 mg Guaifenesin/Dextromethorphan (Robitussin Dm) 10 ml PO Q6H PRN PRN Reason: Cough Last Admin: 11/25/16 19:20 Dose: 10 ml Ceftriaxone Sodium 1,000 mg/ (Sodium Chloride) 50 mls @ 100 mls/hr IVPB Q24HR [facility] Last Admin: 11/27/16 08:49 Dose: 100 mls/hr Metoprolol Tartrate (Lopressor) 100 mg PO BID [facility] Last Admin: 11/27/16 08:50 Dose: 100 mg Miscellaneous Information (Potassium Per Protocol) 1 each MISCELLANE DAILY PRN ; Protocol PRN Reason: Per Protocol Multivitamins (Theragran) 1 each PO DAILY@1200 [facility] Last Admin: 11/27/16 11:08 Dose: 1 each Naloxone HCl (Narcan) 0.2 mg IV Q2M PRN PRN Reason: Opioid Reversal Objective - Vital Signs Vital signs: Vital Signs Temp 98.3 F 11/27/16 15:18 Pulse 112 H 11/27/16 15:20 Resp 20 11/27/16 15:20 BP 136/85 11/27/16 15:18 Pulse Ox 95 11/27/16 15:18 Intake & Output 11/26/16 11/27/16 11/27/16 18:59 06:59 18:59 Intake Total 550 400 150 Output Total 1 Balance 549 400 150 Weight 88 kg Intake: IV 100 Sodium Chloride 0.9% 1, 100 000 ml @ 20 mls/hr IV . Q24H [facility] Rx#:[id number] Intake, IV Titration 50 Amount cefTRIAXone 1,000 mg In 50 Sodium Chloride 0.9% 50 ml @ 100 mls/hr IVPB Q24HR [facility] Rx#:[id number] Oral 240 400 Blood Product 310 Rc As-1 Unit 310 [id number] Output: Stool 1 Other: Voiding Method Bedside Commode Bedside Commode # Voids 1 1 1 # Bowel Movements 1 1 - Exam PHYSICAL EXAM: VITAL SIGNS: As above. GENERAL: [Sitting up in bed, no acute distress] HEENT: [Pupils equal conjunctiva normal.] NECK: [Supple, no JVD] RESPIRATORY EFFORT:[Normal] LUNGS: Diminished, fine left basilar crackles] CARDIOVASCULAR[regular S1 and S2, controlled ventricular rate, positive edema] GI: [Abdomen soft, nontender, positive bowel sounds.] PSYCH: [Alert and oriented -3, mood and affect normal. NEURO: No focal deficits, moves all 4 extremities, strength and sensation grossly intact - Labs CBC & Chem 7: 11/27/16 06:10 11/26/16 21:00 Labs: Abnormal Lab Results - Last 24 Hours (Table) 11/25/16 11/26/16 11/26/16 Range/Units 02:00 16:35 16:35 WBC (3.8-10.6) k/uL RBC (3.80-5.40) m/uL Hgb (11.4-16.0) gm/dL Hct (34.0-46.0) % RDW (11.5-15.5) % Plt Count (150-450) k/uL Potassium 3.3 L (3.5-5.1) mmol/L Magnesium 1.1 L (1.6-2.3) mg/dL Crossmatch See Detail 11/27/16 Range/Units 06:10 WBC 0.3 L* (3.8-10.6) k/uL RBC 2.64 L (3.80-5.40) m/uL Hgb 8.3 L (11.4-16.0) gm/dL Hct 25.1 L (34.0-46.0) % RDW 17.5 H (11.5-15.5) % Plt Count 17 L* D (150-450) k/uL Potassium (3.5-5.1) mmol/L Magnesium (1.6-2.3) mg/dL Crossmatch Microbiology - Last 24 Hours (Table) 11/25/16 00:30 Urine Culture - Final Urine,Clean Catch Assessment and Plan Plan: 1. Generalized weakness, fatigue with anemia and A. fib with pancytopenia]. 2. [Paroxysmal A. fib with RVR, status post Cardizem drip]. Not a candidate for anticoagulation. 3. Severe pancytopenia. 4. Acute Bronchitis, possible acute left lower lobe pneumonia].chest x-ray reporting persistent left lower lobe infiltrate, small effusion. 5. Hyperlipidemia]. 6. Hypertension]. 7. Acute renal failure secondary to dehydration and diuresing]. 8. Anemia of chronic disease, status post transfusion of packed RBCs, in a patient with diffuse B-cell lymphoma. Plan: Continue on current medication regime, antibiotics, nebulized bronchodilators, monitoring and symptomatic treatment. Labs pending. Close monitoring of CBC, electrolytes with repeat labs ordered for a.m. Prognosis guarded given multiple complex medical issues. The impression and plan of care has been dictated as directed. : I performed a H&P examination of this patient and discussed the same with the dictator. I agree with the dictator's note. Any additional findings/opinions/ etc. will be noted.
[2016-11-27 17:31] LABS: Magnesium 1.3 mg/dL (1.6-2.3); Potassium 4.1 mmol/L (3.5-5.1)
[2016-11-27] MEDS ORDERED: Magnesium Replacement Protocol 1 EACH MISC MISCELLANE PRN (18:02)
--- NOTE | 2016-11-27 18:18 | PN ---
DATE OF SERVICE: 11/27/2016 This 81-year-old woman who was admitted with generalized fatigue and weakness also had possible neutropenic sepsis. Seen and evaluated the patient along with the nurse practitioner. Please refer to the nurse practitioner's notes and impressions documented as a scribe for further information. Will continue with empiric antibiotics. Otherwise, continue to monitor. Prognosis guarded. Chest x-ray showed a left lower lobe infiltrate and pneumonia.
--- NOTE | 2016-11-27 18:33 | P.PN ---
Subjective Principal diagnosis: Weakness, cough and tachycardia Patient seen today in follow-up. She does look a little bit better today but still complaining of feeling pretty weak. No recent fevers, no oral irritation or sore throat, her cough is persistent, she is coughing up thick whitish tinged sputum, no hemoptysis, her chest and abdomen are sore from coughing, no heartburn or indigestion, nausea or vomiting, dysuria or hematuria, diarrhea or constipation, she denies any bleeding. Both of her legs continue to be swollen causing difficulty in ambulating. Objective - Vital Signs Vital signs: Vital Signs Temp 98.3 F 11/27/16 15:18 Pulse 112 H 11/27/16 15:20 Resp 20 11/27/16 15:20 BP 136/85 11/27/16 15:18 Pulse Ox 95 11/27/16 15:18 Intake & Output 11/26/16 11/27/16 11/27/16 18:59 06:59 18:59 Intake Total 550 400 150 Output Total 1 Balance 549 400 150 Weight 88 kg Intake: IV 100 Sodium Chloride 0.9% 1, 100 000 ml @ 20 mls/hr IV . Q24H [facility] Rx#:[id number] Intake, IV Titration 50 Amount cefTRIAXone 1,000 mg In 50 Sodium Chloride 0.9% 50 ml @ 100 mls/hr IVPB Q24HR [facility] Rx#:[id number] Oral 240 400 Blood Product 310 Rc As-1 Unit 310 [id number] Output: Stool 1 Other: Voiding Method Bedside Commode Bedside Commode # Voids 1 1 1 # Bowel Movements 1 1 - Constitutional General appearance: Present: average body habitus, cooperative, no acute distress - EENT Eyes: Present: anicteric sclerae, normal appearance ENT: Present: normal oropharynx - Respiratory Respiratory: right: rhonchi, left: diminished - Cardiovascular Heart sounds: normal: S1, S2 - Peripheral edema leg Peripheral Edema: bilateral: 3+, Pitting - Gastrointestinal General gastrointestinal: Present: normal bowel sounds, soft. Absent: absent bowel sounds, decreased bowel sounds, distended, hepatomegaly, hyperactive bowel sounds, organomegaly, rigid, scaphoid, splenomegaly, tenderness, umbilical hernia, ventral hernia - Integumentary Integumentary: Present: pale - Neurologic Neurologic: Present: CNII-XII intact - Musculoskeletal Musculoskeletal: Present: generalized weakness - Psychiatric Psychiatric: Present: A&O x's 3, appropriate affect, intact judgment & insight - Labs CBC & Chem 7: 11/27/16 06:10 11/27/16 17:00 Labs: Abnormal Lab Results - Last 24 Hours (Table) 11/27/16 11/27/16 Range/Units 06:10 17:00 WBC 0.3 L* (3.8-10.6) k/uL RBC 2.64 L (3.80-5.40) m/uL Hgb 8.3 L (11.4-16.0) gm/dL Hct 25.1 L (34.0-46.0) % RDW 17.5 H (11.5-15.5) % Plt Count 17 L* D (150-450) k/uL Magnesium 1.3 L (1.6-2.3) mg/dL Assessment and Plan (1) Pancytopenia Narrative/Plan: Pancytopenia secondary to chemotherapy. CBC reviewed with patient today. Hemoglobin stable after transfusion, platelets are stable as well. White blood cell count has not changed and patient remains neutropenic. She is now 7 days out from receiving Neulasta. Hopefully we will see a change in the white cell count over the next 24-48 hours Status: Acute (2) Diffuse large B-cell lymphoma Narrative/Plan: Patient has completed 2 cycles of R CHOP, this was changed to R CEOP due to arrhythmia and she has had 3 cycles. There has been discussion of eliminating the sixth and final cycle of treatment due to patient's repeated hospital admissions. Dr. Montana currently reviewing the literature regarding how eliminating this cycle could impact outcomes. He will follow-up with her and they will have a discussion regarding how they will proceed. Status: Chronic Plan: Persistent cough: Patient continues on multiple pulmonary supportive medications as well as antibiotics, Pulmonary has been consulted.
[2016-11-27] MEDS: guaiFENesin-DM 100-10MG/5ML 10 ML CUP PO PRN (19:00)
[2016-11-27] MEDS: MAGNESIUM SULFATE-D5W PMX 1 GM in DEXTROSE/WATER 1 100ML.BAG IVPB SCH ×3 (19:59→22:21)
[2016-11-27] MEDS: IPRATROPIUM-ALBUTEROL 3 ML NEB INHALATION PRN (20:53)
[2016-11-28] MEDS: guaiFENesin-DM 100-10MG/5ML 10 ML CUP PO PRN ×2 (02:42→22:05)
[2016-11-28] MEDS: HYDROcodone/APAP 5-325MG 1 EACH TAB PO PRN (04:05)
[2016-11-28 06:08] LABS: Anisocytosis Slight; CHCM 32.5; HCT 25.6 % (34.0-46.0); HGB 8.4 gm/dL (11.4-16.0); Immature Gran Flag Marked; Large Platelets Flag Slight; MCH 31.6 pg (25.0-35.0); MCV 95.9 fL (80.0-100.0); Macrocytosis Slight; Mean Platelet Volume 10.9; RBC 2.67 m/uL (3.80-5.40); WBC (Perox) 0.96
[2016-11-28 06:09] LABS: WBC 0.9 k/uL (3.8-10.6)
[2016-11-28 06:44] LABS: Add Differential Manual Differential; Manual Review Performed
[2016-11-28 06:45] LABS: Ovalocytes Present
[2016-11-28] MEDS: SYMBICORT 160-4.5 MCG INHALER INHALATION SCH ×2 (07:51→20:22)
[2016-11-28] MEDS: guaiFENesin 600 MG TABLET.ER PO SCH ×2 (08:24→20:20)
[2016-11-28] MEDS: AZITHROMYCIN 500 MG TAB PO SCH (08:24)
[2016-11-28] MEDS: ATORVASTATIN 20 MG TAB PO SCH (08:24)
[2016-11-28] MEDS: AMIODARONE 200 MG TAB PO SCH (08:25)
[2016-11-28] MEDS: METOPROLOL TARTRATE 50 MG TAB PO SCH ×2 (08:25→20:20)
[2016-11-28] MEDS: MULTIVITAMINS, THERA 1 EACH TAB PO SCH (11:17)
--- NOTE | 2016-11-28 14:44 | P.PN ---
Subjective Principal diagnosis: Weakness, cough and tachycardia Patient seen today in follow-up. She is feeling better today, her respiratory symptoms are slowly abating, she used cough syrup and got a good nights sleep. She walked to the door with PT, using walker. Denies fevers, oral irritation hemoptysis, she is eating and drinking fairly well, no indigestion, nausea or vomiting, dysuria or hematuria, diarrhea or constipation. Legs still swollen but she is getting out of bed. Objective - Vital Signs Vital signs: Vital Signs Temp 98.3 F 11/28/16 13:18 Pulse 120 H 11/28/16 13:18 Resp 20 11/28/16 13:18 BP 129/68 11/28/16 13:18 Pulse Ox 94 L 11/28/16 13:18 Intake & Output 11/27/16 11/28/16 11/28/16 18:59 06:59 18:59 Intake Total 150 850 199 Balance 150 850 199 Intake: IV 100 200 Sodium Chloride 0.9% 1, 100 000 ml @ 20 mls/hr IV . Q24H JOHANNY Rx#:[id number] ns@25 200 Intake, IV Titration 50 200 Amount Magnesium Sulfate-D5w Pmx 200 1 gm In Dextrose/Water 1 100ml.bag @ 100 mls/hr IVPB Q1H JOHANNY Rx#: [id number] cefTRIAXone 1,000 mg In 50 Sodium Chloride 0.9% 50 ml @ 100 mls/hr IVPB Q24HR JOHANNY Rx#:[id number] Oral 450 Blood Product 199 Platelet Pheresis Acda3 199 Unit [id number] Other: Voiding Method Bedside Commode # Voids 1 1 # Bowel Movements 1 1 - Constitutional General appearance: Present: cooperative, no acute distress - EENT ENT: Present: normal oropharynx - Respiratory Respiratory: bilateral: rales (bases), wheezing (few scattered) - Cardiovascular Heart sounds: normal: S1, S2 - Peripheral edema leg Peripheral Edema: bilateral: 3+, Pitting - Gastrointestinal General gastrointestinal: Present: normal bowel sounds, soft. Absent: absent bowel sounds, decreased bowel sounds, distended, hepatomegaly, hyperactive bowel sounds, organomegaly, rigid, scaphoid, splenomegaly, tenderness, umbilical hernia, ventral hernia - Integumentary Integumentary: Present: pale - Neurologic Neurologic: Present: CNII-XII intact - Musculoskeletal Musculoskeletal: Present: generalized weakness, strength equal bilaterally - Psychiatric Psychiatric: Present: A&O x's 3, appropriate affect, intact judgment & insight - Labs CBC & Chem 7: 11/28/16 05:55 11/27/16 17:00 Labs: Abnormal Lab Results - Last 24 Hours (Table) 11/27/16 11/28/16 Range/Units 17:00 05:55 WBC 0.9 L* (3.8-10.6) k/uL RBC 2.67 L (3.80-5.40) m/uL Hgb 8.4 L (11.4-16.0) gm/dL Hct 25.6 L (34.0-46.0) % RDW 17.0 H (11.5-15.5) % Plt Count 7 L* D (150-450) k/uL Magnesium 1.3 L (1.6-2.3) mg/dL Assessment and Plan (1) Pancytopenia Narrative/Plan: Platelets 7,000 so Platelet transfusion ordered for today, WBC is up ever so slightly-no GCSF as she had neulasta 7 days ago, Hgb stable. Labs daily Status: Acute (2) Diffuse large B-cell lymphoma Narrative/Plan: Pt will follow up with Dr. Montana after recovery for treatment discussion and follow up plan. Status: Chronic
--- NOTE | 2016-11-28 14:51 | P.PN ---
Subjective This is a very pleasant 81-year-old female patient with a history of diffuse large B-cell lymphoma. She has completed 2 cycles of R CHOP that was recently changed to R CEOP secondary to arrhythmias. She was admitted here on 2016 with complaints of increasing shortness of breath and a loose nonproductive cough. She was also found to be in atrial fibrillation with a rapid ventricular response. She was initiated on Cardizem initially. She was also found to have a left lower lobe infiltrate and small effusions and we are consulted for the same. She is seen again today on the oncology unit. She is currently sitting up in the chair at the bedside. She is awake and alert in no acute distress. She is feeling quite fatigued and tired however. She has been having ongoing issues with pancytopenia. Current white count 0.9, hemoglobin 8.4, platelet count 7000. Objective - Vital Signs Vital signs: Vital Signs Temp 98.3 F 11/28/16 13:18 Pulse 120 H 11/28/16 13:18 Resp 20 11/28/16 13:18 BP 129/68 11/28/16 13:18 Pulse Ox 94 L 11/28/16 13:18 Intake & Output 11/27/16 11/28/16 11/28/16 18:59 06:59 18:59 Intake Total 150 850 429 Balance 150 850 429 Intake: IV 100 200 180 Sodium Chloride 0.9% 1, 100 000 ml @ 20 mls/hr IV . Q24H JOHANNY Rx#:[id number] ns@25 200 180 Intake, IV Titration 50 200 50 Amount Magnesium Sulfate-D5w Pmx 200 1 gm In Dextrose/Water 1 100ml.bag @ 100 mls/hr IVPB Q1H JOHANNY Rx#: [id number] cefTRIAXone 1,000 mg In 50 50 Sodium Chloride 0.9% 50 ml @ 100 mls/hr IVPB Q24HR JOHANNY Rx#:[id number] Oral 450 Blood Product 199 Platelet Pheresis Acda3 199 Unit [id number] Other: Voiding Method Bedside Commode # Voids 1 1 # Bowel Movements 1 1 - Exam GENERAL EXAM: Alert, fairly comfortable in no apparent distress. Generalized weakness. HEAD: Normocephalic. EYES: Normal reaction of pupils, equal size. NOSE: Clear with pink turbinates. THROAT: No erythema or exudates. NECK: No masses, no JVD. CHEST: No chest wall deformity. LUNGS: Equal air entry with crackles in the left lung base. CVS: S1 and S2 normal with no audible murmurs, regular rhythm. ABDOMEN: Soft, normal bowel sounds, no guarding or rigidity. SPINE: No scoliosis or deformity SKIN: No rashes CENTRAL NERVOUS SYSTEM: No focal deficits, tone is normal in all 4 extremities. Extremities: There is trace peripheral edema. No clubbing, no cyanosis. Peripheral pulses are intact. - Labs CBC & Chem 7: 11/28/16 05:55 11/27/16 17:00 Labs: Abnormal Lab Results - Last 24 Hours (Table) 11/27/16 11/28/16 Range/Units 17:00 05:55 WBC 0.9 L* (3.8-10.6) k/uL RBC 2.67 L (3.80-5.40) m/uL Hgb 8.4 L (11.4-16.0) gm/dL Hct 25.6 L (34.0-46.0) % RDW 17.0 H (11.5-15.5) % Plt Count 7 L* D (150-450) k/uL Magnesium 1.3 L (1.6-2.3) mg/dL Assessment and Plan Plan: Impression: #1 Acute left lower lobe pneumonia. #2 Atrial fibrillation with a rapid ventricular response. #3 Pancytopenia secondary to chemotherapy for diffuse large B-cell lymphoma. #4 Febrile neutropenia. #5 Hyperlipidemia. #6 Hyperlipidemia. Plan: The patient was seen and evaluated by Dr. Brar. The patient is less short of breath today as compared to yesterday. She still has continued ongoing fatigue and weakness. We'll continue with her current medications including bronchodilators, Symbicort, ceftriaxone and azithromycin. She also remains on Robitussin and Mucinex. We'll attempt to increase her activity as tolerated. She is encouraged to increase use of the incentive spirometer and cough and deep breathing exercises. Oncology is on the case regarding her pancytopenia. We'll continue to follow make further recommendations based on her clinical status.
--- NOTE | 2016-11-28 14:57 | P.PN ---
Subjective Date of service 11/28/2016. Progress note being dictated for Dr. Iglesias Interval history: This 81-year-old female admitted with generalized weakness, fatigue, anemia, paroxysmal A. fib in a patient with lymphoma, currently receiving chemotherapy outpatient, pancytopenia and multiple other medical issues. Maintained on beta cassandra,amiodarone, Rocephin. Slept better last night with the assistance of Joshitustomeka-DM . Occasional productive cough, clear sputum. Diet intake continues to improve without nausea or vomiting . Ambulated to door way and back with walker, tolerating increase in exertion well. Denies any signs or symptoms of bleeding, no hemoptysis no rectal bleeding. Platelets down to 7, scheduled for transfusion of platelets. WBC improving. Review of systems: HEENT: Denies headache or focal deficits. Denies any dizziness or lightheadedness. Respiratory: Denies any increased shortness of breath. Cardiac: Denies any chest pain, palpitations. GI: Denies any nausea, vomiting, or diarrhea. Denies any abdominal tenderness. : Denies any dysuria. Psychiatry: Denies any anxiety or depression. Sometimes teary-eyed Active Medications Generic Name Dose Route Start Last Admin Trade Name Freq PRN Reason Stop Dose Admin Acetaminophen 650 mg 11/24/16 21:04 Tylenol Tab PO Q6HR PRN Mild Pain or Fever > 100.5 Acetaminophen/Hydrocodone Bitart 1 each 11/24/16 21:08 11/28/16 04:05 Parshall 5-325 PO 1 each Q6HR PRN Administration Moderate Pain Albuterol/Ipratropium 3 ml 11/26/16 09:46 11/27/16 20:53 Duoneb 0.5 Mg-3 Mg/3 Ml Soln INHALATION 3 ml RT-QID PRN Administration Shortness Of Breath Or Wheezing Amiodarone HCl 400 mg 11/25/16 09:00 11/28/16 08:25 Cordarone PO 400 mg DAILY JOHANNY Administration Atorvastatin Calcium 20 mg 11/25/16 09:00 11/28/16 08:24 Lipitor PO 20 mg DAILY JOHANNY Administration Azithromycin 500 mg 11/26/16 09:00 11/28/16 08:24 Zithromax PO 500 mg DAILY JOHANNY Administration Budesonide/Formoterol Fumarate 2 puff 11/26/16 20:00 11/28/16 07:51 Symbicort 160-4.5 Mcg Inhaler INHALATION 2 puff RT-BID JOHANNY Administration Guaifenesin 600 mg 11/26/16 21:00 11/28/16 08:24 Mucinex PO 600 mg Q12HR JOHANNY Administration Guaifenesin/Dextromethorphan 10 ml 11/25/16 14:13 11/28/16 02:42 Robitussin Dm PO 10 ml Q6H PRN Administration Cough Ceftriaxone Sodium 1,000 mg/ 50 mls @ 100 mls/hr 11/25/16 18:00 11/28/16 08: 24 Sodium Chloride IVPB 100 mls/hr Q24HR JOHANNY Administration Magnesium Sulfate/Dextrose 1 100 mls @ 100 mls/hr 11/28/16 14:30 gm/ IV Solution IVPB 11/28/16 16:29 Q1H JOHANNY Metoprolol Tartrate 100 mg 11/26/16 21:00 11/28/16 08:25 Lopressor PO 100 mg BID JOHANNY Administration Miscellaneous Information 1 each 11/26/16 11:44 Potassium Per Protocol MISCELLANE DAILY PRN Per Protocol Protocol Miscellaneous Information 1 each 11/27/16 18:02 Magnesium Per Protocol MISCELLANE DAILY PRN Per Protocol Protocol Multivitamins 1 each 11/25/16 12:00 11/28/16 11:17 Theragran PO 1 each DAILY@1200 JOHANNY Administration Naloxone HCl 0.2 mg 11/24/16 21:04 Narcan IV Q2M PRN Opioid Reversal Objective - Vital Signs Vital signs: Vital Signs Temp 98.3 F 11/28/16 13:18 Pulse 120 H 11/28/16 13:18 Resp 20 11/28/16 13:18 BP 129/68 11/28/16 13:18 Pulse Ox 94 L 11/28/16 13:18 Intake & Output 11/27/16 11/28/16 11/28/16 18:59 06:59 18:59 Intake Total 150 850 199 Balance 150 850 199 Intake: IV 100 200 Sodium Chloride 0.9% 1, 100 000 ml @ 20 mls/hr IV . Q24H JOHANNY Rx#:[id number] ns@25 200 Intake, IV Titration 50 200 Amount Magnesium Sulfate-D5w Pmx 200 1 gm In Dextrose/Water 1 100ml.bag @ 100 mls/hr IVPB Q1H JOHANNY Rx#: [id number] cefTRIAXone 1,000 mg In 50 Sodium Chloride 0.9% 50 ml @ 100 mls/hr IVPB Q24HR JOHANNY Rx#:[id number] Oral 450 Blood Product 199 Platelet Pheresis Acda3 199 Unit [id number] Other: Voiding Method Bedside Commode # Voids 1 1 # Bowel Movements 1 1 - Exam PHYSICAL EXAM: VITAL SIGNS: As above. GENERAL: [Sitting up in bed, no acute distress] HEENT: [Pupils equal conjunctiva normal.] NECK: [Supple, no JVD] RESPIRATORY EFFORT:[Normal] LUNGS: Diminished, fine left basilar crackles, occasional expiratory wheeze throughout] CARDIOVASCULAR[regular S1 and S2, controlled ventricular rate, positive edema] GI: [Abdomen soft, nontender, positive bowel sounds.] PSYCH: [Alert and oriented -3, mood and affect normal. NEURO: No focal deficits, moves all 4 extremities, strength and sensation grossly intact - Labs CBC & Chem 7: 11/28/16 05:55 11/27/16 17:00 Labs: Abnormal Lab Results - Last 24 Hours (Table) 11/27/16 11/28/16 Range/Units 17:00 05:55 WBC 0.9 L* (3.8-10.6) k/uL RBC 2.67 L (3.80-5.40) m/uL Hgb 8.4 L (11.4-16.0) gm/dL Hct 25.6 L (34.0-46.0) % RDW 17.0 H (11.5-15.5) % Plt Count 7 L* D (150-450) k/uL Magnesium 1.3 L (1.6-2.3) mg/dL Assessment and Plan Plan: 1. Generalized weakness, fatigue with anemia and A. fib with pancytopenia]. 2. [Paroxysmal A. fib with RVR, status post Cardizem drip]. Not a candidate for anticoagulation. 3. Severe pancytopenia. 4. Acute Bronchitis, possible acute left lower lobe pneumonia].chest x-ray reporting persistent left lower lobe infiltrate, small effusion. 5. Hyperlipidemia]. 6. Hypertension]. 7. Acute renal failure secondary to dehydration and diuresing]. 8. Anemia of chronic disease, status post transfusion of packed RBCs, in a patient with diffuse B-cell lymphoma. 9. Fevers, possible early neutropenic sepsis. 10. Hypomagnesemia 11. Hypokalemia Plan: Continue on current medication regime, antibiotics, nebulized bronchodilators, monitoring and symptomatic treatment. Magnesium 1.7, supplements ordered, BMP pending. Scheduled for transfusion of platelets ; Close monitoring of CBC, electrolytes with repeat labs ordered for a.m. PT/OT. Prognosis guarded given multiple complex medical issues. The impression and plan of care has been dictated as directed. : I performed a H&P examination of this patient and discussed the same with the dictator. I agree with the dictator's note. Any additional findings/opinions/ etc. will be noted.
[2016-11-28 15:15] LABS: Anion Gap 6 mmol/L; Blood Urea Nitrogen 22 mg/dL (7-17); Calcium 8.2 mg/dL (8.4-10.2); Carbon Dioxide 33 mmol/L (22-30); Chloride 97 mmol/L (98-107); Glucose 165 mg/dL (74-99); Non-African American GFR(MDRD) 58 (>60 ml/min/1.73 sqM); Potassium 3.8 mmol/L (3.5-5.1); Sodium 136 mmol/L (137-145)
[2016-11-28] MEDS: MAGNESIUM SULFATE-D5W PMX 1 GM in DEXTROSE/WATER 1 100ML.BAG IVPB SCH ×2 (15:32→16:46)
[2016-11-28] MEDS ORDERED: POTASSIUM CHLORIDE ER 20 MEQ TAB.ER PO STA (15:42)
[2016-11-28] MEDS: IPRATROPIUM-ALBUTEROL 3 ML NEB INHALATION PRN (20:22)
--- NOTE | 2016-11-28 20:40 | PN ---
DATE OF SERVICE: 11/28/2016 This 81-year-old woman who was admitted with generalized weakness and fatigue as well as is being closely monitored at this time. Seen and evaluated the patient along with the nurse practitioner. Please refer to the nurse practitioner's notes and impressions documented as a scribe for further information. Patient is receiving platelet transfusion today. The platelets are 7 and white count is 0.9. Cultures are negative so far. Further recommendations to follow. MTDD
[2016-11-29] MEDS: HYDROcodone/APAP 5-325MG 1 EACH TAB PO PRN (00:06)
[2016-11-29 06:23] LABS: Anisocytosis Slight; CH 30.8; CHCM 32.1; HCT 24.8 % (34.0-46.0); HDW 3.28; Hypochromasia Slight; Immature Gran Flag Marked; MCH 31.1 pg (25.0-35.0); MCHC 32.1 g/dL (31.0-37.0); MCV 96.7 fL (80.0-100.0); Macrocytosis Slight; Mean Platelet Volume 8.3; RBC 2.57 m/uL (3.80-5.40); WBC (Perox) 3.05
[2016-11-29 06:39] LABS: Anion Gap 4 mmol/L; Blood Urea Nitrogen 19 mg/dL (7-17); Calcium 8.3 mg/dL (8.4-10.2); Carbon Dioxide 34 mmol/L (22-30); Chloride 99 mmol/L (98-107); Glucose 145 mg/dL (74-99); Magnesium 1.8 mg/dL (1.6-2.3); Non-African American GFR(MDRD) 60 (>60 ml/min/1.73 sqM); Potassium 3.9 mmol/L (3.5-5.1); Sodium 137 mmol/L (137-145)
[2016-11-29 06:53] LABS: Add Differential Manual Differential
[2016-11-29 06:59] LABS: Manual Review Performed; Nucleated Red Blood Cells 0 /100 WBC (0-0); Total Cells Counted 200
[2016-11-29 07:00] LABS: Ovalocytes Present; Polychromasia Present; Toxic Granulation Present
[2016-11-29] MEDS: IPRATROPIUM-ALBUTEROL 3 ML NEB INHALATION PRN ×4 (08:00→20:41)
[2016-11-29] MEDS ORDERED: POTASSIUM CHLORIDE ER 20 MEQ TAB.ER PO ONE (08:00)
[2016-11-29] MEDS: guaiFENesin 600 MG TABLET.ER PO SCH ×2 (08:09→20:42)
[2016-11-29] MEDS: ATORVASTATIN 20 MG TAB PO SCH (08:09)
[2016-11-29] MEDS: AMIODARONE 200 MG TAB PO SCH (08:09)
[2016-11-29] MEDS: AZITHROMYCIN 500 MG TAB PO SCH (08:09)
[2016-11-29] MEDS: METOPROLOL TARTRATE 50 MG TAB PO SCH ×2 (08:09→20:44)
[2016-11-29] MEDS: SYMBICORT 160-4.5 MCG INHALER INHALATION SCH ×2 (08:41→20:41)
[2016-11-29] MEDS: MAGNESIUM SULFATE-D5W PMX 1 GM in DEXTROSE/WATER 1 100ML.BAG IVPB SCH ×2 (09:10→10:23)
[2016-11-29] MEDS: MULTIVITAMINS, THERA 1 EACH TAB PO SCH (12:22)
[2016-11-29] MEDS: FUROSEMIDE 10 MG/ML 4 ML VIAL IV SCH (12:23)
--- NOTE | 2016-11-29 14:16 | P.PN ---
Subjective Progress note dated 11/29/2016 81-year-old female with a history of diffuse large B-cell lymphoma. She apparently is going to be may be discharged home today. She feeling a lot better. Presented to the hospital with complaints of shortness of breath and irregular heartbeat. Was found to have A. fib with RVR which is not new for her. The patient also was found to have a bit of a cough. She's had like she had an acute respiratory infection or acute bronchitis. Feeling much better today. He's been treated with antibiotics oxygen therapy and bronchodilators. No further problems with her atrial fibrillation. Objective - Vital Signs Vital signs: Vital Signs Temp 97.8 F 11/29/16 07:00 Pulse 102 H 11/29/16 11:55 Resp 20 11/29/16 07:00 BP 127/75 11/29/16 07:00 Pulse Ox 99 11/29/16 07:00 Intake & Output 11/28/16 11/29/16 11/29/16 18:59 06:59 18:59 Intake Total 429 1400 535 Balance 429 1400 535 Weight 88 kg Intake: IV 180 200 135 ns@25 180 200 135 Intake, IV Titration 50 250 Amount Magnesium Sulfate-D5w Pmx 100 1 gm In Dextrose/Water 1 100ml.bag @ 100 mls/hr IVPB Q1H JOHANNY Rx#: [id number] Magnesium Sulfate-D5w Pmx 100 1 gm In Dextrose/Water 1 100ml.bag @ 100 mls/hr IVPB Q1H JOHANNY Rx#: [id number] cefTRIAXone 1,000 mg In 50 50 Sodium Chloride 0.9% 50 ml @ 100 mls/hr IVPB Q24HR JOHANNY Rx#:[id number] Oral 1200 150 Blood Product 199 Platelet Pheresis Acda3 199 Unit [id number] Other: Voiding Method Bedside Commode # Voids 2 - Exam No acute distress, oriented 3. HEENT examination is grossly unremarkable. Nasal O2 in place. Mucous membranes are moist. Neck supple. Full range of motion. No adenopathy. No thyromegaly. Neck veins are flat. Cardiovascular examination reveals regular rhythm rate. S1-S2 normal. No S3- S4 or murmur. Lungs reveal clear breath sounds. No wheezes no rhonchi. No crackles. Abdomen soft bowel sounds are heard. Extremities are intact. No cyanosis clubbing or edema. - Labs CBC & Chem 7: 11/29/16 06:10 11/29/16 06:10 Labs: Abnormal Lab Results - Last 24 Hours (Table) 11/28/16 11/29/16 11/29/16 Range/Units 05:55 06:10 06:10 WBC 3.0 L (3.8-10.6) k/uL RBC 2.57 L (3.80-5.40) m/uL Hgb 8.0 L (11.4-16.0) gm/dL Hct 24.8 L (34.0-46.0) % RDW 17.0 H (11.5-15.5) % Plt Count 27 L* D (150-450) k/uL Lymphocytes # (Manual) 0.2 L (1.0-4.8) k/uL Sodium 136 L (137-145) mmol/L Chloride 97 L (98-107) mmol/L Carbon Dioxide 33 H 34 H (22-30) mmol/L BUN 22 H 19 H (7-17) mg/dL Glucose 165 H 145 H (74-99) mg/dL Calcium 8.2 L 8.3 L (8.4-10.2) mg/dL Assessment and Plan (1) Pneumonia Status: Acute (2) Atrial fibrillation Status: Acute (3) Pancytopenia Status: Acute (4) Febrile neutropenia Status: Acute (5) Hypercholesterolemia Status: Acute (6) Hyperlipemia Status: Acute (7) Paroxysmal a-fib Status: Acute (8) Diffuse large B-cell lymphoma Status: Chronic Plan: Plan dated 11/27/2016 The chest x-ray labs and medications are reviewed. The chest x-ray definitely reveals an infiltrate in the left lower lobe with small left parapneumonic effusion. She is quite pancytopenic. Medications will be reviewed as well as. X-rays have been reviewed. Additional recommendations suggestions are forthcoming. She looks relatively comfortable. We'll recommend oxygen therapy antibiotics and bronchodilators. Plan dated 11/29/2016 The patient is doing well. She came in with a chest x-ray showing pneumonia left lower lobe with a small left parapneumonic effusion. Clinically she is much improved. She still struggling with a pancytopenia. May or may not be discharged home today. Medications are reviewed and appropriate. Time with Patient: Less than 30
--- NOTE | 2016-11-29 15:53 | P.PN ---
Subjective Principal diagnosis: Weakness, cough and tachycardia Patient seen today in follow-up. She is feeling better today, she just got done walking with PT and using walker, she is winded, O2 sats 99%, her cough is more congested sounding. Denies fevers,nausea or vomiting. Leg swelling is stable. Objective - Vital Signs Vital signs: Vital Signs Temp 97.8 F 11/29/16 07:00 Pulse 102 H 11/29/16 11:55 Resp 20 11/29/16 07:00 BP 127/75 11/29/16 07:00 Pulse Ox 99 11/29/16 07:00 Intake & Output 11/28/16 11/29/16 11/29/16 18:59 06:59 18:59 Intake Total 429 1400 535 Balance 429 1400 535 Weight 88 kg Intake: IV 180 200 135 ns@25 180 200 135 Intake, IV Titration 50 250 Amount Magnesium Sulfate-D5w Pmx 100 1 gm In Dextrose/Water 1 100ml.bag @ 100 mls/hr IVPB Q1H JOHANNY Rx#: [id number] Magnesium Sulfate-D5w Pmx 100 1 gm In Dextrose/Water 1 100ml.bag @ 100 mls/hr IVPB Q1H JOHANNY Rx#: [id number] cefTRIAXone 1,000 mg In 50 50 Sodium Chloride 0.9% 50 ml @ 100 mls/hr IVPB Q24HR JOHANNY Rx#:[id number] Oral 1200 150 Blood Product 199 Platelet Pheresis Acda3 199 Unit [id number] Other: Voiding Method Bedside Commode # Voids 2 - Constitutional General appearance: Present: average body habitus, cooperative, no acute distress - Respiratory Respiratory: bilateral: rhonchi - Cardiovascular Heart sounds: normal: S1, S2 - Peripheral edema leg Peripheral Edema: bilateral: 3+, Pitting - Gastrointestinal General gastrointestinal: Present: normal bowel sounds, soft - Neurologic Neurologic: Present: CNII-XII intact - Musculoskeletal Musculoskeletal: Present: generalized weakness, strength equal bilaterally - Psychiatric Psychiatric: Present: A&O x's 3, appropriate affect, intact judgment & insight - Labs CBC & Chem 7: 11/29/16 06:10 11/29/16 06:10 Labs: Abnormal Lab Results - Last 24 Hours (Table) 11/29/16 11/29/16 Range/Units 06:10 06:10 WBC 3.0 L (3.8-10.6) k/uL RBC 2.57 L (3.80-5.40) m/uL Hgb 8.0 L (11.4-16.0) gm/dL Hct 24.8 L (34.0-46.0) % RDW 17.0 H (11.5-15.5) % Plt Count 27 L* D (150-450) k/uL Lymphocytes # (Manual) 0.2 L (1.0-4.8) k/uL Carbon Dioxide 34 H (22-30) mmol/L BUN 19 H (7-17) mg/dL Glucose 145 H (74-99) mg/dL Calcium 8.3 L (8.4-10.2) mg/dL Assessment and Plan (1) Pancytopenia Narrative/Plan: Labs reviewed today, WBC increased to 3 today, Hgb stable and platelets slightly improved. Labs indicate recovery of hematologic effects of chemotherapy Status: Acute (2) Diffuse large B-cell lymphoma Narrative/Plan: Pt states that she does not want last chemotherapy, did inform Dr. Montana of pt decision. Pt will follow up with Dr. Montana and receive her plan for monitoring Status: Chronic Plan: Pulmonary following Cont PT
[2016-11-29] MEDS: POTASSIUM CHLORIDE ER 20 MEQ TAB.ER PO SCH (18:06)
[2016-11-29] MEDS: ACETAMINOPHEN TAB 325 MG TAB PO PRN (18:10)
--- NOTE | 2016-11-29 20:03 | PN ---
DATE OF SERVICE: 11/29/2016 This 81-year-old woman who was admitted with neutropenic sepsis and pneumonia is improving significantly. No chest pain, no palpitation. No fever. White count is elevated. On exam, alert and oriented x2. Pulse 126, blood pressure 124/75, respirations 20, temperature 98.1, pulse ox 97% on 3-L. HEENT: Conjunctivae normal. NECK: No jugular venous distention. CARDIOVASCULAR: S1, S2. RESPIRATORY: Breath sounds diminished at the bases. Bilateral scattered rhonchi and crackles. Expiratory wheezing also present. ABDOMEN: Soft, nontender. LEGS: Edema. NERVOUS SYSTEM: No focal deficits. LABS: WBC 3, hemoglobin is 8, platelets 27, sodium 137. ASSESSMENT: 1. Neutropenic sepsis with possible acute left lower pneumonia, possibly gram-negative, present on admission. 2. Pancytopenia secondary from chemotherapy. 3. Severe anemia secondary to chemotherapy. 4. Paroxysmal atrial fibrillation with rapid ventricular rate, status post Cardizem drip. 5. Not a candidate for anticoagulation. 6. Hyperlipidemia. 7. Hypertension. 8. Acute renal failure secondary to dehydration and prerenal factors. 9. Anemia of chronic disease secondary to malignancy. 10. Diffuse B cell lymphoma. 11. Fever secondary to neutropenic sepsis. 12. Hypomagnesemia. 13. Hypokalemia. 14. FULL CODE. 15. Mild hyponatremia. 16. Mild hypocalcemia. 17. Mild to moderate protein calorie malnutrition with hypoalbuminemia. 18. Bilateral leg edema. RECOMMENDATIONS AND DISCUSSION: In this 81-year-old woman presented with multiple complex medical issues, we will monitor the patient closely. Continue with current medications and symptomatic treatment. We will continue to monitor. Will add diuretics to the current regimen. We will continue the rest of the medication. Continue the broad-spectrum IV antibiotics, continue the bronchodilators. Closely follow with multiple consultants. Otherwise, guarded prognosis because of multiple complex medical issues. Further recommendations to follow. We will monitor fluid and electrolyte balance closely.
[2016-11-30] MEDS: HYDROcodone/APAP 5-325MG 1 EACH TAB PO PRN ×2 (05:50→21:07)
[2016-11-30 06:24] LABS: Anisocytosis Slight; CH 30.9; CHCM 32.2; HCT 23.9 % (34.0-46.0); HDW 3.35; HGB 7.7 gm/dL (11.4-16.0); Hypochromasia Slight; Immature Gran Flag Slight; MCH 31.1 pg (25.0-35.0); MCHC 32.1 g/dL (31.0-37.0); MCV 96.7 fL (80.0-100.0); Macrocytosis Slight; Mean Platelet Volume 9.6; RBC 2.47 m/uL (3.80-5.40); RDW 17.1 % (11.5-15.5); WBC 4.4 k/uL (3.8-10.6); WBC (Perox) 4.64
[2016-11-30 07:06] LABS: Anion Gap 3 mmol/L; Blood Urea Nitrogen 16 mg/dL (7-17); Calcium 8.4 mg/dL (8.4-10.2); Carbon Dioxide 34 mmol/L (22-30); Chloride 99 mmol/L (98-107); Glucose 110 mg/dL (74-99); Magnesium 1.7 mg/dL (1.6-2.3); Non-African American GFR(MDRD) 60 (>60 ml/min/1.73 sqM); Potassium 3.9 mmol/L (3.5-5.1); Sodium 136 mmol/L (137-145)
[2016-11-30 07:08] LABS: Add Differential Manual Differential
[2016-11-30 07:14] LABS: Manual Review Performed; Metamyelocytes % 1.5 %; Myelocytes % 0.5 %; Nucleated Red Blood Cells 0 /100 WBC (0-0); Ovalocytes Present; Polychromasia Present; Total Cells Counted 200
[2016-11-30] MEDS: guaiFENesin 600 MG TABLET.ER PO SCH ×2 (08:58→21:05)
[2016-11-30] MEDS: AMIODARONE 200 MG TAB PO SCH (08:58)
[2016-11-30] MEDS: AZITHROMYCIN 500 MG TAB PO SCH (08:58)
[2016-11-30] MEDS: ATORVASTATIN 20 MG TAB PO SCH (08:58)
[2016-11-30] MEDS: FUROSEMIDE 10 MG/ML 4 ML VIAL IV SCH (08:58)
[2016-11-30] MEDS: POTASSIUM CHLORIDE ER 20 MEQ TAB.ER PO SCH (08:59)
[2016-11-30] MEDS: METOPROLOL TARTRATE 50 MG TAB PO SCH ×2 (08:59→21:10)
[2016-11-30] MEDS: SYMBICORT 160-4.5 MCG INHALER INHALATION SCH ×2 (12:16→19:27)
[2016-11-30] MEDS: MULTIVITAMINS, THERA 1 EACH TAB PO SCH (12:48)
--- NOTE | 2016-11-30 13:10 | P.PN ---
Subjective This is a very pleasant 81-year-old female patient with a history of diffuse large B-cell lymphoma. She has completed 2 cycles of R CHOP that was recently changed to R CEOP secondary to arrhythmias. She was admitted here on 2016 with complaints of increasing shortness of breath and a loose nonproductive cough. She was also found to be in atrial fibrillation with a rapid ventricular response. She was initiated on Cardizem initially. She was also found to have a left lower lobe infiltrate and small effusions and we are consulted for the same. She is seen again today on the oncology unit. She is currently sitting up in the chair at the bedside. She is awake and alert in no acute distress. She is feeling quite fatigued and tired however. She has been having ongoing issues with pancytopenia. Current white count 0.9, hemoglobin 8.4, platelet count 7000. She is seen again today 11/30/2016 on the oncology floor. She is currently sitting up in the chair at the bedside. She is awake and alert in no acute distress. She does continue with a loose nonproductive cough. No chills or night sweats. Current white count 4.4. Platelets 22,000. She has been maintained on bronchodilators, Symbicort, ceftriaxone and azithromycin. He is also being diuresed she is currently on Lasix 40 mg IV push daily. Objective - Vital Signs Vital signs: Vital Signs Temp 98.6 F 11/30/16 07:00 Pulse 120 H 11/30/16 07:00 Resp 18 11/30/16 07:00 BP 127/76 11/30/16 07:00 Pulse Ox 98 11/30/16 07:00 Intake & Output 11/29/16 11/30/16 11/30/16 18:59 06:59 18:59 Intake Total 535 1390 200 Output Total 1 Balance 535 1389 200 Weight 88 kg Intake: IV 135 450 150 ns@25 135 450 150 Intake, IV Titration 250 50 Amount Magnesium Sulfate-D5w Pmx 100 1 gm In Dextrose/Water 1 100ml.bag @ 100 mls/hr IVPB Q1H [facility] Rx#: [id number] Magnesium Sulfate-D5w Pmx 100 1 gm In Dextrose/Water 1 100ml.bag @ 100 mls/hr IVPB Q1H [facility] Rx#: [id number] cefTRIAXone 1,000 mg In 50 50 Sodium Chloride 0.9% 50 ml @ 100 mls/hr IVPB Q24HR [facility] Rx#:[id number] Oral 150 940 Output: Stool 1 Other: Voiding Method Bedside Commode Bedside Commode # Voids 2 # Bowel Movements 1 - Exam GENERAL EXAM: Alert, fairly comfortable in no apparent distress. Generalized weakness. HEAD: Normocephalic. EYES: Normal reaction of pupils, equal size. NOSE: Clear with pink turbinates. THROAT: No erythema or exudates. NECK: No masses, no JVD. CHEST: No chest wall deformity. LUNGS: Equal air entry with crackles in the left lung base. CVS: S1 and S2 normal with no audible murmurs, regular rhythm. ABDOMEN: Soft, normal bowel sounds, no guarding or rigidity. SPINE: No scoliosis or deformity SKIN: No rashes CENTRAL NERVOUS SYSTEM: No focal deficits, tone is normal in all 4 extremities. Extremities: There is trace peripheral edema. No clubbing, no cyanosis. Peripheral pulses are intact. - Labs CBC & Chem 7: 11/30/16 06:15 11/30/16 06:15 Labs: Abnormal Lab Results - Last 24 Hours (Table) 11/30/16 11/30/16 Range/Units 06:15 06:15 RBC 2.47 L (3.80-5.40) m/uL Hgb 7.7 L (11.4-16.0) gm/dL Hct 23.9 L (34.0-46.0) % RDW 17.1 H (11.5-15.5) % Plt Count 22 L* (150-450) k/uL Lymphocytes # (Manual) 0.1 L (1.0-4.8) k/uL Sodium 136 L (137-145) mmol/L Carbon Dioxide 34 H (22-30) mmol/L Glucose 110 H (74-99) mg/dL Assessment and Plan Plan: Impression: #1 Acute left lower lobe pneumonia. #2 Atrial fibrillation with a rapid ventricular response. #3 Pancytopenia secondary to chemotherapy for diffuse large B-cell lymphoma. #4 Febrile neutropenia, recovered. #5 Hyperlipidemia. #6 Hyperlipidemia. Plan: The patient was seen and evaluated by Dr. Brar. She is slightly better today as compared to yesterday. She still complains of fatigue and weakness. She has a loose nonproductive cough. We'll continue with her current medications including bronchodilators, Symbicort, Mucinex, Robitussin, ceftriaxone and azithromycin. She also remains on Robitussin and Mucinex. We'll attempt to increase her activity as tolerated. She is encouraged to increase use of the incentive spirometer and cough and deep breathing exercises. We'll continue to follow make further recommendations based on her clinical status.
[2016-11-30] MEDS: IPRATROPIUM-ALBUTEROL 3 ML NEB INHALATION PRN ×2 (13:45→19:14)
--- NOTE | 2016-11-30 19:36 | PN ---
DATE OF SERVICE: 11/30/2016 This 81-year-old woman who was admitted with neutropenic sepsis and pancytopenia is improving significantly. Patient still has complaints of tiredness and weakness. No chest pain or palpitation. No fever. PT/OT evaluating the patient. On exam, alert and oriented times three. Pulse 116. Blood pressure 127/76. Respiratory rate 18. Temperature 98.6. Pulse 09% on 3 L. HEENT: Conjunctivae normal. NECK: No jugular venous distention. CARDIOVASCULAR: S1, S2 muffled. RESPIRATORY: Breath sounds diminished at the bases. A few scattered rhonchi and crackles. Expiratory wheezing also present. ABDOMEN: Soft. Nontender. No mass palpable. LEGS: No edema. No swelling. LABS: WBC 4.5, hemoglobin 7.7, platelet 22, sodium 136. ASSESSMENT: 1. Neutropenic sepsis with possible acute left lower pneumonia, possibly gram-negative, present on admission. 2. Pancytopenia secondary from chemotherapy. 3. Severe anemia secondary to chemotherapy. 4. Paroxysmal atrial fibrillation with rapid ventricular rate status post Cardizem drip. 5. Not a candidate for anticoagulation. 6. Hypertension. 7. Hyperlipidemia. 8. Acute renal failure secondary to dehydration prerenal factors. 9. Anemia of chronic disease secondary to malignancy. 10. Diffuse B-cell lymphoma. 11. Fever secondary to neutropenic sepsis. 12. Hypomagnesemia. 13. Hypokalemia. 14. Mild hyponatremia. 15. Mild hypocalcemia. 16. Mild to moderate protein calorie malnutrition with hypoalbuminemia. 17. Bilateral leg edema. 18. FULL CODE. RECOMMENDATIONS AND DISCUSSION: In this 81 -year-old woman who presented with multiple complex medical issues, we will monitor the patient closely. Continue the current medications. Continue antibiotics. Continue bronchodilators. Continue the rest of the medications. Monitor fluid and electrolytes balance closely. Further recommendations to follow.
[2016-12-01 06:56] LABS: Anisocytosis Slight; Basophils % (A) 1 %; CH 30.9; CHCM 31.9; Eosinophils % (A) 0 %; HCT 24.4 % (34.0-46.0); HDW 3.37; HGB 7.7 gm/dL (11.4-16.0); Hypochromasia Slight; Luc # (Auto) 0.12; Luc % (Auto) 2; Lymphocytes # (A) 0.2 k/uL (1.0-4.8); Lymphocytes % (A) 4 %; MCH 30.7 pg (25.0-35.0); MCHC 31.5 g/dL (31.0-37.0); MCV 97.5 fL (80.0-100.0); Macrocytosis Slight; Mean Platelet Volume 10.4; Monocytes # (A) 0.4 k/uL (0-1.0); Monocytes % (A) 8 %; Neutrophils # (A) 4.4 k/uL (1.3-7.7); Neutrophils % (A) 85 %; RBC 2.51 m/uL (3.80-5.40); RDW 17.3 % (11.5-15.5); WBC 5.2 k/uL (3.8-10.6); WBC (Perox) 5.65
[2016-12-01 07:05] LABS: Anion Gap 4 mmol/L; Blood Urea Nitrogen 15 mg/dL (7-17); Calcium 8.4 mg/dL (8.4-10.2); Carbon Dioxide 35 mmol/L (22-30); Chloride 98 mmol/L (98-107); Glucose 116 mg/dL (74-99); Magnesium 1.5 mg/dL (1.6-2.3); Non-African American GFR(MDRD) >60 (>60 ml/min/1.73 sqM); Sodium 137 mmol/L (137-145)
[2016-12-01] MEDS: IPRATROPIUM-ALBUTEROL 3 ML NEB INHALATION PRN ×4 (08:00→19:51)
[2016-12-01] MEDS: SYMBICORT 160-4.5 MCG INHALER INHALATION SCH ×2 (08:01→19:51)
[2016-12-01] MEDS: POTASSIUM CHLORIDE ER 20 MEQ TAB.ER PO SCH (09:05)
[2016-12-01] MEDS: ATORVASTATIN 20 MG TAB PO SCH (09:05)
[2016-12-01] MEDS: AMIODARONE 200 MG TAB PO SCH (09:05)
[2016-12-01] MEDS: FUROSEMIDE 10 MG/ML 4 ML VIAL IV SCH (09:06)
[2016-12-01] MEDS: AZITHROMYCIN 500 MG TAB PO SCH (09:06)
[2016-12-01] MEDS: guaiFENesin 600 MG TABLET.ER PO SCH ×2 (09:06→20:48)
[2016-12-01] MEDS: ACETAMINOPHEN TAB 325 MG TAB PO PRN ×2 (09:07→14:37)
[2016-12-01] MEDS: METOPROLOL TARTRATE 50 MG TAB PO SCH ×2 (09:07→20:47)
[2016-12-01] MEDS: MULTIVITAMINS, THERA 1 EACH TAB PO SCH (12:30)
--- NOTE | 2016-12-01 14:14 | P.PN ---
Subjective Progress note dated 11/29/2016 81-year-old female with a history of diffuse large B-cell lymphoma. She apparently is going to be may be discharged home today. She feeling a lot better. Presented to the hospital with complaints of shortness of breath and irregular heartbeat. Was found to have A. fib with RVR which is not new for her. The patient also was found to have a bit of a cough. She's had like she had an acute respiratory infection or acute bronchitis. Feeling much better today. He's been treated with antibiotics oxygen therapy and bronchodilators. No further problems with her atrial fibrillation. Progress note dated 12/01/2016 This is an 81-year-old female with history of diffuse large B-cell lymphoma. She was going be discharged late last week but dated that keeping her over the weekend. May be discharged to [facility] on Friday. She came with shortness of breath secondary to atrial fibrillation with RVR. Doing a bit better. Probably has an acute respiratory infection or acute bronchitis. On although feeling much better. The patient is probably ready for discharge in the morning. She denies any nausea vomiting. No fever no chills. Coughing up a small amount of phlegm. Not a lot. Some mild wheezing. Still short of breath with exertion. Objective - Vital Signs Vital signs: Vital Signs Temp 98.2 F 12/01/16 07:00 Pulse 108 H 12/01/16 11:53 Resp 18 12/01/16 07:00 BP 166/81 12/01/16 07:00 Pulse Ox 97 12/01/16 07:00 Intake & Output 11/30/16 12/01/16 12/01/16 18:59 06:59 18:59 Intake Total 400 1140 Balance 400 1140 Intake: IV 150 0 ns@25 150 0 Intake, IV Titration 50 Amount cefTRIAXone 1,000 mg In 50 Sodium Chloride 0.9% 50 ml @ 100 mls/hr IVPB Q24HR [facility] Rx#:[id number] Oral 200 1140 Other: Voiding Method Bedside Commode Bedside Commode Bedside Commode # Voids 2 # Bowel Movements 1 - Exam No acute distress, oriented 3. HEENT examination is grossly unremarkable. Nasal O2 in place. Mucous membranes are moist. Neck supple. Full range of motion. No adenopathy. No thyromegaly. Neck veins are flat. Cardiovascular examination reveals regular rhythm rate. S1-S2 normal. No S3- S4 or murmur. Lungs reveal clear breath sounds. No wheezes no rhonchi. No crackles. Abdomen soft bowel sounds are heard. Extremities are intact. No cyanosis clubbing or edema. - Labs CBC & Chem 7: 12/01/16 06:30 12/01/16 06:30 Labs: Abnormal Lab Results - Last 24 Hours (Table) 12/01/16 12/01/16 Range/Units 06:30 06:30 RBC 2.51 L (3.80-5.40) m/uL Hgb 7.7 L (11.4-16.0) gm/dL Hct 24.4 L (34.0-46.0) % RDW 17.3 H (11.5-15.5) % Plt Count 23 L* (150-450) k/uL Lymphocytes # 0.2 L (1.0-4.8) k/uL Carbon Dioxide 35 H (22-30) mmol/L Glucose 116 H (74-99) mg/dL Magnesium 1.5 L (1.6-2.3) mg/dL Assessment and Plan (1) Pneumonia Status: Acute (2) Atrial fibrillation Status: Acute (3) Pancytopenia Status: Acute (4) Febrile neutropenia Status: Acute (5) Hypercholesterolemia Status: Acute (6) Hyperlipemia Status: Acute (7) Paroxysmal a-fib Status: Acute (8) Diffuse large B-cell lymphoma Status: Chronic Plan: Plan dated 11/27/2016 The chest x-ray labs and medications are reviewed. The chest x-ray definitely reveals an infiltrate in the left lower lobe with small left parapneumonic effusion. She is quite pancytopenic. Medications will be reviewed as well as. X-rays have been reviewed. Additional recommendations suggestions are forthcoming. She looks relatively comfortable. We'll recommend oxygen therapy antibiotics and bronchodilators. Plan dated 11/29/2016 The patient is doing well. She came in with a chest x-ray showing pneumonia left lower lobe with a small left parapneumonic effusion. Clinically she is much improved. She still struggling with a pancytopenia. May or may not be discharged home today. Medications are reviewed and appropriate. Plan dated 12/01/2016 The patient is doing well. Likely discharge tomorrow. The patient's respiratory status has improved. Less short of breath. Less cough. We'll continue to follow. Medications x-rays and labs are all reviewed. Time with Patient: Less than 30
--- NOTE | 2016-12-01 15:04 | P.PN ---
Subjective The patient is slowly improving in terms of strength. However she is quite weak and almost had a fall yesterday because of her knees giving out. She has a persistent cough that is productive of mostly whitish sputum. Objective - Vital Signs Vital signs: Vital Signs Temp 98.2 F 12/01/16 07:00 Pulse 108 H 12/01/16 11:53 Resp 18 12/01/16 07:00 BP 166/81 12/01/16 07:00 Pulse Ox 97 12/01/16 07:00 Intake & Output 11/30/16 12/01/16 12/01/16 18:59 06:59 18:59 Intake Total 400 1140 Balance 400 1140 Intake: IV 150 0 ns@25 150 0 Intake, IV Titration 50 Amount cefTRIAXone 1,000 mg In 50 Sodium Chloride 0.9% 50 ml @ 100 mls/hr IVPB Q24HR [facility] Rx#:[id number] Oral 200 1140 Other: Voiding Method Bedside Commode Bedside Commode Bedside Commode # Voids 2 # Bowel Movements 1 - Constitutional General appearance: Present: no acute distress - EENT Eyes: Present: PERRLA ENT: Present: hearing grossly normal, normal oropharynx - Respiratory Respiratory: bilateral: diminished - Cardiovascular Rhythm: irregularly irregular Heart sounds: normal: S1, S2 - Gastrointestinal General gastrointestinal: Present: normal bowel sounds, soft - Integumentary Integumentary: Present: normal - Neurologic Neurologic: Present: CNII-XII intact - Musculoskeletal Musculoskeletal: Present: generalized weakness - Psychiatric Psychiatric: Present: A&O x's 3 - Labs CBC & Chem 7: 12/01/16 06:30 12/01/16 06:30 Labs: Abnormal Lab Results - Last 24 Hours (Table) 12/01/16 12/01/16 Range/Units 06:30 06:30 RBC 2.51 L (3.80-5.40) m/uL Hgb 7.7 L (11.4-16.0) gm/dL Hct 24.4 L (34.0-46.0) % RDW 17.3 H (11.5-15.5) % Plt Count 23 L* (150-450) k/uL Lymphocytes # 0.2 L (1.0-4.8) k/uL Carbon Dioxide 35 H (22-30) mmol/L Glucose 116 H (74-99) mg/dL Magnesium 1.5 L (1.6-2.3) mg/dL Assessment and Plan (1) Pancytopenia Narrative/Plan: The patient's white count has recovered into the normal range. Platelets are now more stable in the 20-30 range, which is safe. Hemoglobin is stable in the 7-8 range. Continue to follow counts, and supplement as needed Status: Acute (2) Febrile neutropenia Narrative/Plan: The patient's fever has not recurred. White blood cell count has normalized. Cultures remain negative. She has been switched to ceftriaxone for community acquired pneumonia Status: Acute (3) Diffuse large B-cell lymphoma Narrative/Plan: The patient has completed 5 of the planned 6 cycles. Her course has been fairly rough, with frequent hospitalizations, related to the chemotherapy, as well as her underlying medical conditions. She is quite debilitated at this time. Most likely the patient will need placement for rehab at least temporarily. Therefore we will cancel the last cycle of chemotherapy. She will subsequently be placed on a surveillance schedule Status: Chronic
[2016-12-01] MEDS: MAGNESIUM SULFATE-D5W PMX 1 GM in DEXTROSE/WATER 1 100ML.BAG IVPB SCH ×2 (19:22→20:48)
[2016-12-01] MEDS: HYDROcodone/APAP 5-325MG 1 EACH TAB PO PRN (22:10)
--- NOTE | 2016-12-01 23:33 | PN ---
DATE OF SERVICE: 12/01/2016 This 81-year-old woman who was admitted with neutropenic sepsis and possible acute left lower pneumonia, possibly gram-negative is improving slightly. Patient still has significant cough and sputum also. The patient is on antibiotics. White count is elevated. No chest pain. No palpitations. No fever. Dr. Brar and Dr. Montana also following the patient closely. Rehab is also being planned. On exam, alert and oriented x3. Pulse is 104, blood pressure 160/81. Respirations 18, temperature 98.2. Pulse ox 97% on 2 L. HEENT: Conjunctivae normal. NECK: No jugular venous distention. CARDIOVASCULAR: S1, S2 muffled. RESPIRATORY: Breath sounds diminished in the bases. Bilateral scattered rhonchi and crackles. ABDOMEN: Soft. Nontender. Port-A-Cath presented in the right chest. CENTRAL NERVOUS SYSTEM: Mild diffuse weakness. LABS: WBC 5.8, hemoglobin 7.7, platelets are 23. ASSESSMENT: 1. Neutropenic sepsis with possible acute left lower lobe pneumonia, possibly gram negative, present on admission. 2. Pancytopenia secondary to chemotherapy. 3. Severe anemia secondary to chemotherapy. 4. Paroxysmal atrial fibrillation with rapid ventricular rate, status post Cardizem drip. 5. Not a candidate for anticoagulation. 6. Hypertension. 7. Hyperlipidemia. 8. Acute renal failure secondary to dehydration prerenal factors and acute tubular necrosis. 9. Anemia of chronic disease secondary to malignancy. 10. Diffuse B-cell lymphoma. 11. Fever secondary to neutropenic sepsis. 12. Hypomagnesemia. 13. Hypokalemia. 14. Mild hyponatremia. 15. Mild hypocalcemia. 16. Mild to moderate protein calorie malnutrition with hypoalbuminemia. 17. Bilateral leg edema. 18. FULL CODE. RECOMMENDATIONS AND DISCUSSION: In this 81-year-old woman who presented with multiple complex medical issues, we will monitor the patient closely. Continue the current medications and continue symptomatic treatment. Otherwise, at this time I would recommend continue with current medications. Monitor hemoglobin closely. PT, OT evaluation and possible ECF rehab. Continue the rest of the bronchodilators including bronchodilators as well as empiric antibiotics. Further recommendations to follow.
[2016-12-02 06:41] LABS: Anisocytosis Slight; Basophils % (A) 0 %; CH 30.7; CHCM 31.9; Eosinophils % (A) 0 %; HCT 24.5 % (34.0-46.0); HDW 3.44; HGB 7.8 gm/dL (11.4-16.0); Hypochromasia Slight; Large Platelets Flag Marked; Luc # (Auto) 0.14; Luc % (Auto) 2; Lymphocytes # (A) 0.3 k/uL (1.0-4.8); Lymphocytes % (A) 5 %; MCHC 31.9 g/dL (31.0-37.0); MCV 97.2 fL (80.0-100.0); Macrocytosis Slight; Mean Platelet Volume 11.8; Monocytes # (A) 0.5 k/uL (0-1.0); Monocytes % (A) 8 %; Neutrophils # (A) 5.2 k/uL (1.3-7.7); Neutrophils % (A) 84 %; Poikilocytosis Slight; RBC 2.52 m/uL (3.80-5.40); RDW 17.2 % (11.5-15.5); WBC 6.2 k/uL (3.8-10.6); WBC (Perox) 6.56
[2016-12-02 06:50] LABS: Anion Gap 2 mmol/L; Blood Urea Nitrogen 14 mg/dL (7-17); Calcium 8.1 mg/dL (8.4-10.2); Carbon Dioxide 36 mmol/L (22-30); Chloride 99 mmol/L (98-107); Glucose 116 mg/dL (74-99); Non-African American GFR(MDRD) >60 (>60 ml/min/1.73 sqM); Potassium 4.1 mmol/L (3.5-5.1); Sodium 137 mmol/L (137-145)
[2016-12-02 07:08] LABS: Manual Review Performed
[2016-12-02 07:09] LABS: Ovalocytes Present
[2016-12-02 08:02] VITALS: BP 130/73; RESP 18; TEMP 99.1
[2016-12-02] MEDS: FUROSEMIDE 10 MG/ML 4 ML VIAL IV SCH (08:13)
[2016-12-02] MEDS: POTASSIUM CHLORIDE ER 20 MEQ TAB.ER PO SCH (08:13)
[2016-12-02] MEDS: METOPROLOL TARTRATE 50 MG TAB PO SCH (08:13)
[2016-12-02] MEDS: AZITHROMYCIN 500 MG TAB PO SCH (08:13)
[2016-12-02] MEDS: guaiFENesin 600 MG TABLET.ER PO SCH (08:13)
[2016-12-02] MEDS: ATORVASTATIN 20 MG TAB PO SCH (08:13)
[2016-12-02] MEDS: AMIODARONE 200 MG TAB PO SCH (08:14)
[2016-12-02] MEDS: SYMBICORT 160-4.5 MCG INHALER INHALATION SCH (09:01)
[2016-12-02] MEDS: IPRATROPIUM-ALBUTEROL 3 ML NEB INHALATION PRN ×2 (09:01→13:03)
[2016-12-02] MEDS: HYDROcodone/APAP 5-325MG 1 EACH TAB PO PRN (09:58)
--- NOTE | 2016-12-02 10:01 | XR ---
EXAMINATION TYPE: XR chest 2V DATE OF EXAM: 12/02/2016 9:46 AM HISTORY: Shortness of breath. COMPARISON: November 26, 2016 TECHNIQUE: Single view of the chest is submitted. FINDINGS: Demonstrated are scattered senescent parenchymal change. MediPort catheter is unchanged. There is right upper lobe infiltrate. Small left basilar effusion and compressive atelectasis or arvin tional infiltrate noted. The heart is stable. Hilar and mediastinal structures are within normal limits. Degenerative changes are seen of the dorsal spine. IMPRESSION: 1. There is right upper lobe infiltrate. Small left basilar effusion and compressive atelectasis or additional infiltrate noted.
--- NOTE | 2016-12-02 12:00 | DS ---
DATE OF ADMISSION: 11/24/2016 DATE OF DISCHARGE: FINAL DIAGNOSES: 1. Neutropenic sepsis with possible acute left lower lobe pneumonia, possibly gram-negative, present on admission. 2. Pancytopenia secondary to chemotherapy. 3. Severe anemia secondary to chemotherapy. 4. Normocytic anemia. 5. Paroxysmal atrial fibrillation with rapid ventricular rate, status post Cardizem drip. 6. Not a candidate for anticoagulation. 7. Hypertension. 8. Gait dysfunction. 9. Hyperlipidemia. 10. Acute renal failure secondary to dehydration, prerenal factors and acute tubular necrosis present on admission. 11. Anemia of chronic disease, secondary to malignancy. 12. Diffuse B-cell lymphoma. 13. Fever secondary to neutropenic sepsis. 14. Hypomagnesemia. 15. Hypokalemia. 16. Mild hyponatremia. 17. Mild hypocalcemia. 18. Moderate protein calorie malnutrition and hypoalbuminemia. 19. Bilateral leg edema. 20. FULL CODE. DISCHARGE DISPOSITION: The patient will be discharged in a stable condition with guarded prognosis. Total time taken 35 minutes. The patient will be transferred to [facility]. HISTORY OF PRESENT ILLNESS: This 81-year-old woman with a past medical history of multiple medical problems was admitted with neutropenic sepsis and fever and pneumonia. Patient treated with bronchodilators, antibiotics. Patient improved significantly. Dr. Montana saw the patient also. White count improved to 6.2, platelet transfusion was given, platelets are 21, hemoglobin is stable at 7.8. Stable. On exam, vitals are stable. CARDIOVASCULAR SYSTEM: S1, S2, muffled. RESPIRATORY: A few scattered rhonchi. ABDOMEN: Soft. NERVOUS SYSTEM: No focal deficits. DISCHARGE ADVICE: 1. Diet is cardiac. 2. Activity limited until followup. 3. Follow up with Dr. Brizuela as advised. 4. Follow up with Dr. Montana as advised. 5. CBC, BMP in 2 to 3 days and continued followup. The medications will be as follows: 1. Tylenol 650 q.6 p.r.n. 2. Cordarone 400 mg p.o. daily. 3. Aspirin 81 mg q.h.s. 4. Lipitor 20 mg p.o. daily. 5. Zithromax 500 mg p.o. daily for 5 days. 6. Symbicort 160/4.5 two puffs b.i.d. 7. Ceftin 500 mg p.o. b.i.d. for 5 days. 8. Lasix 40 mg p.o. daily. 9. Dennison 5 mg q.6 p.r.n. 10. Accu-Cheks a.c. and at bedtime. 11. Humalog scale 150 to 200 = 2 units, 201 to 250 = 4 units, 215 to 300 = 6 units, 301 to 350 = 8 units, 351 to 400 = 10 units; more than 400 call. 12. Albuterol Atrovent updrafts q.i.d. and p.r.n. for shortness of breath. 13. Lopressor 75 mg p.o. t.i.d. 14. Multivitamin 1 p.o. daily. 15. Klor-Con 20 mEq p.o. daily. 16. Mucinex 600 mg p.o. b.i.d. 17. Prednisone taper, that is 40 mg p.o. daily for 3 days, 30 for 3 days, 20 for 3 days, 10 for 3 days and then stop. Once again, the patient is being discharged in a stable condition with guarded prognosis.
[2016-12-02] MEDS: MULTIVITAMINS, THERA 1 EACH TAB PO SCH (13:14)
[2016-12-02 13:16] VITALS: PULSE 132
--- NOTE | 2016-12-02 17:53 | P.PN ---
Subjective This is a very pleasant 81-year-old female patient with a history of diffuse large B-cell lymphoma. She has completed 2 cycles of R CHOP that was recently changed to R CEOP secondary to arrhythmias. She was admitted here on 2016 with complaints of increasing shortness of breath and a loose nonproductive cough. She was also found to be in atrial fibrillation with a rapid ventricular response. She was initiated on Cardizem initially. She was also found to have a left lower lobe infiltrate and small effusions and we are consulted for the same. She is seen again today on the oncology unit. She is currently sitting up in the chair at the bedside. She is awake and alert in no acute distress. She is feeling quite fatigued and tired however. She has been having ongoing issues with pancytopenia. Current white count 0.9, hemoglobin 8.4, platelet count 7000. The patient is seen again today 12/02/2016 in follow-up on the oncology floor. She is awake and alert in no acute distress. She denies any worsening shortness of breath at this time. She continues with a loose nonproductive cough. No chills or night sweats. She is maintaining good O2 saturations in the mid 90s on 3 L/m per nasal cannula. Today's labs reveal a WBC 6.2. Hemoglobin 7.8, platelet count 21,000 Objective - Vital Signs Vital signs: Vital Signs Temp 99.1 F 12/02/16 07:00 Pulse 132 H 12/02/16 13:15 Resp 18 12/02/16 07:00 BP 130/73 12/02/16 07:00 Pulse Ox 94 L 12/02/16 15:02 Intake & Output 12/01/16 12/02/16 12/02/16 18:59 06:59 18:59 Intake Total 790 Output Total 1 Balance 790 -1 Intake: Intake, IV Titration 200 Amount Magnesium Sulfate-D5w Pmx 200 1 gm In Dextrose/Water 1 100ml.bag @ 100 mls/hr IVPB Q1H [facility] Rx#: [id number] Oral 590 Output: Stool 1 Other: Voiding Method Bedside Commode Bedside Commode Bedside Commode # Voids 2 1 # Bowel Movements 1 - Exam GENERAL EXAM: Alert, fairly comfortable in no apparent distress. Generalized weakness. HEAD: Normocephalic. EYES: Normal reaction of pupils, equal size. NOSE: Clear with pink turbinates. THROAT: No erythema or exudates. NECK: No masses, no JVD. CHEST: No chest wall deformity. LUNGS: Equal air entry with crackles in the left lung base. CVS: S1 and S2 normal with no audible murmurs, regular rhythm. ABDOMEN: Soft, normal bowel sounds, no guarding or rigidity. SPINE: No scoliosis or deformity SKIN: No rashes CENTRAL NERVOUS SYSTEM: No focal deficits, tone is normal in all 4 extremities. Extremities: There is trace peripheral edema. No clubbing, no cyanosis. Peripheral pulses are intact. - Labs CBC & Chem 7: 12/02/16 06:30 12/02/16 06:30 Labs: Abnormal Lab Results - Last 24 Hours (Table) 12/02/16 12/02/16 Range/Units 06:30 06:30 RBC 2.52 L (3.80-5.40) m/uL Hgb 7.8 L (11.4-16.0) gm/dL Hct 24.5 L (34.0-46.0) % RDW 17.2 H (11.5-15.5) % Plt Count 21 L* (150-450) k/uL Lymphocytes # 0.3 L (1.0-4.8) k/uL Carbon Dioxide 36 H (22-30) mmol/L Glucose 116 H (74-99) mg/dL Calcium 8.1 L (8.4-10.2) mg/dL Assessment and Plan Plan: Impression: #1 Acute left lower lobe pneumonia, improved. #2 Atrial fibrillation with a rapid ventricular response. #3 Pancytopenia secondary to chemotherapy for diffuse large B-cell lymphoma. #4 Febrile neutropenia, recovered. #5 Hyperlipidemia. #6 Hyperlipidemia. Plan: The patient was seen and evaluated by Dr. Hernandez. Her chest x-ray and labs were reviewed. She is cleared for discharge to an extended care facility for continued inpatient rehabilitation. A complete her course of antibiotics in the form of Ceftin and Zithromax. She'll continue on bronchodilators and Symbicort. She'll keep her follow-up with oncology as well.
== END 2016-12-02 15:15 | DRG 871 ==
LOC: EC 19:06 → 6SEL 19:51 → 5ONC 11-25 12:10
PROVIDERS: ADMIT Internal Medicine; ATTEND Internal Medicine
PROC: 30233R1 Transfusion of Nonautologous Platelets into Peripheral Vein, Percutaneous Approach (ICD-10-PCS; principal; 2016-11-25)
PROC: 30233N1 Transfusion of Nonautologous Red Blood Cells into Peripheral Vein, Percutaneous Approach (ICD-10-PCS; 2016-11-25)
DX: A41.9 Sepsis, unspecified organism (principal); J15.6 Pneumonia due to other Gram-negative bacteria; N17.0 Acute kidney failure with tubular necrosis; D61.810 Antineoplastic chemotherapy induced pancytopenia; E44.0 Moderate protein-calorie malnutrition; C83.30 Diffuse large B-cell lymphoma, unspecified site; I48.92 Unspecified atrial flutter; E87.1 Hypo-osmolality and hyponatremia; I48.0 Paroxysmal atrial fibrillation; E86.0 Dehydration; E83.42 Hypomagnesemia; E83.51 Hypocalcemia; D70.3 Neutropenia due to infection; D63.0 Anemia in neoplastic disease; R50.81 Fever presenting with conditions classified elsewhere; I10 Essential (primary) hypertension; T45.1X5A Adverse effect of antineoplastic and immunosuppressive drugs, initial encounter; E78.5 Hyperlipidemia, unspecified; E87.6 Hypokalemia; E78.00 Pure hypercholesterolemia, unspecified; M19.90 Unspecified osteoarthritis, unspecified site; R26.2 Difficulty in walking, not elsewhere classified; Z90.49 Acquired absence of other specified parts of digestive tract; Z90.710 Acquired absence of both cervix and uterus; Z79.82 Long term (current) use of aspirin; Z98.42 Cataract extraction status, left eye; Z79.899 Other long term (current) drug therapy; Z80.9 Family history of malignant neoplasm, unspecified
CPT/HCPCS: 36415; 71010; 71020; 80048; 80053; 81003; 82550; 82553; 83735; 84132; 84484; 85025; 86850; 86900; 86901; 86920; 87086; 93005; 94640; 94760; 96365; 96368; 96376; 99291

== ENCOUNTER → 2016-12-31 | Outpatient (CLI) | payer MEDICARE ==
[2016-12-31 10:41] LABS: Blood Urea Nitrogen 34 mg/dL (7-17); Non-African American GFR(MDRD) 53 (>60 ml/min/1.73 sqM)
--- NOTE | 2016-12-31 12:23 | CT ---
EXAMINATION TYPE: CT ChestAbdPelvis w con DATE OF EXAM: 12/31/2016 11:48 AM COMPARISON: Prior CT chest abdomen pelvis 15 October 2016 HISTORY: Patient has history of neck lymphoma, in for follow up today CT DLP: 984.2 mGycm Automated exposure control for dose reduction was used. CONTRAST: CT scan of the chest, abdomen and pelvis is performed with Oral Contrast and with IV Contrast, patien t injected with 80 mL of Visipaque 320. FINDINGS: LUNGS: There is been interval development of streaky opacities within the both lungs. Pleural effusio ns persist similar to prior. There is nodularity, subcentimeter in size of the right greater than lef t lung base. MEDIASTINUM: There are no greater than 1 cm hilar or mediastinal lymph nodes. No pericardial effusi on is seen. AORTA: No significant abnormality is seen. OTHER: No additional significant abnormality is seen. LIVER/GB: Liver shows low attenuation. Gallbladder is absent. PANCREAS: No significant abnormality is seen. SPLEEN: No significant abnormality is seen. ADRENALS: No significant abnormality is seen. KIDNEYS: Bilateral cortical cysts are present as on prior exam. Punctate nonobstructive calculus is s table in the left kidney. REPRODUCTIVE ORGANS: Post hysterectomy change, ovaries are not visualized. BOWEL: No bowel obstruction. FREE AIR: No Free Air visible. ASCITES: None seen. There are anasarca changes within the lower extremities similar to prior exam. RETROPERITONEAL ADENOPATHY: No retroperitoneal adenopathy is seen. LYMPH NODES: No greater than 1 cm abdominal or pelvic lymph nodes are appreciated. URINARY BLADDER: No significant abnormality is seen. PELVIC ADENOPATHY: None visualized. OSSEOUS STRUCTURES: Degenerative disc changes in the visualized spine IMPRESSION: There is been interval development of streak-like opacities within the lungs, there is blackman bcentimeter nodularity present at the lung bases which is indeterminate. Findings may be related to p atient's lymphoma.
== END | disposition home or self-care (01) ==
LOC: RADPROMAIN 09:28
PROVIDERS: ATTEND Internal Medicine Hematology & Oncology
DX: Z03.89 Encounter for observation for other suspected diseases and conditions ruled out (principal); C83.38 Diffuse large B-cell lymphoma, lymph nodes of multiple sites
CPT/HCPCS: 82565; 84520; 71260; 74177; Q9967

== ENCOUNTER → 2017-04-01 | Outpatient (CLI) | payer MEDICARE ==
--- NOTE | 2017-04-01 12:34 | CT ---
EXAMINATION TYPE: CT ChestAbdPelvis wo con DATE OF EXAM: 04/01/2017 COMPARISON: Prior CT chest abdomen pelvis 12/31/2016 HISTORY: lymphoma follow up CT DLP: 496.4 mGycm. Automated Exposure Control for Dose Reduction was Utilized. TECHNIQUE: CT scan of the thorax, abdomen and pelvis is performed without IV contrast. FINDINGS: Lack of intravenous contrast may compromise sensitivity, contrast was not administered due to patient's renal insufficiency, patient received oral contrast only LUNGS: The lungs are grossly clear, there is no concerning parenchymal mass or nodule identified. Raul e minimal areas of scarring or atelectasis persists, nodularity has resolved at the right lung base a s has the pleural effusion on the left. There is no pleural effusion or pneumothorax seen. The trac heobronchial tree is patent. MEDIASTINUM: There are no greater than 1 cm hilar or mediastinal lymph nodes. No pericardial effusi on is seen. OTHER: No additional significant abnormality is seen. LIVER/GB: No significant abnormality is appreciated. Gallbladder is absent. PANCREAS: No significant abnormality is seen. SPLEEN: No significant abnormality is seen. ADRENALS: No significant abnormality is seen. KIDNEYS: No significant abnormality is seen. The cystic foci within the bilateral kidneys again noted , nonobstructive calculus present towards the upper pole of the left kidney as on prior exam BOWEL: No significant abnormality is seen. GENITAL ORGANS: Uterus and adnexal structures are absent. LYMPH NODES: No greater than 1cm abdominal or pelvic lymph nodes are appreciated. OSSEOUS STRUCTURES: No significant abnormality is seen. OTHER: No significant additional abnormality is seen. Right-sided Port-A-Cath is present with the dis serge tip within the cavoatrial junction level of the superior vena cava. Small hiatal hernia may be pr esent. Within the mesenteric fat there is some groundglass opacity present as on prior exam, only sma ll nodes are present however. Improvement in lower extremity edema. IMPRESSION: There is improvement at the lung bases as described bilaterally. Additional nonspecific f indings described above.
== END | disposition home or self-care (01) ==
LOC: RADPROMAIN 09:46
PROVIDERS: ATTEND Internal Medicine Hematology & Oncology
DX: C83.38 Diffuse large B-cell lymphoma, lymph nodes of multiple sites (principal); R91.8 Other nonspecific abnormal finding of lung field
CPT/HCPCS: 82565; 84520; 71250; 74176; J1642

== ENCOUNTER → 2017-12-24 | Outpatient (CLI) | payer MEDICARE ==
--- NOTE | 2017-12-24 16:59 | CT ---
EXAMINATION TYPE: CT ChestAbdPelvis wo con DATE OF EXAM: 12/24/2017 INDICATION: Follow up to lymphoma, originated in neck COMPARISON: 09/25/2017 CT DLP: 640.5 mGycm CONTRAST: Performed with Oral Contrast. No intravenous contrast due to renal function at the time of this exam. TECHNIQUE: Axial images at 5 mm thick sections. Reconstructed images in the coronal plane. Delayed images through the kidneys. FINDINGS: CT CHEST: Portion of the thyroid visualized is normal. No suspicious lung nodules or focal infiltrates are present. There are some groundglass opacities wit hin the right middle lobe and within the lingula. Some atelectasis is likely present at the left lung base. Findings appear patent on the 09/25/2017 comparison. No enlarged mediastinal or hilar adenopathy is evident. The ascending aorta diameter at the level of the main pulmonary artery is 3.4 cm. The main pulmonary artery diameter at the bifurcation is 2.9 cm. Coronary artery calcification is present. Small hiatal hernia is present. CT ABDOMEN: Liver: Normal Spleen: Normal Pancreas: Normal Adrenal glands: The adrenal glands are normal. Gallbladder: Not identified Kidneys: No masses are evident. No hydronephrosis is present. There is a 6.6 cm cyst superior pole left kidney measuring 10 Hounsfield units. There is a 4.8 cm cyst extending from the posterior mid le ft kidney measuring 13 Hounsfield units. There is a 2.1 cm hypoechoic area extending from the posteri or lateral right kidney measuring 20 Hounsfield units. There is a 0.3 cm calcification along the post erior medial left mid kidney. No obstruction is evident. Aorta: Vascular calcification is within the aorta. Inferior vena cava: Normal. CT PELVIS: The lower portion of the abdomen within the mesentery there is some streak opacity best vi sualized in the coronal plane. Scattered small lymph nodes are within this region. Largest lymph node appears to measure 0.7 cm. Findings were present previously. Loops of bowel within the abdomen and pelvis are normal. There are loops of bowel which are incom pletely distended or lack oral contrast limiting their evaluation. Appendix: Not identified Urinary bladder: Decompressed and cannot be evaluated. Genitourinary structures: Uterus and ovaries are not identified. Osseous structures: No suspicious lytic or sclerotic lesions. Facet changes are within the lumbar spi ne. Some degenerative disc changes and vacuum phenomenon are in the lower thoracic spine. IMPRESSIONS: 1. No suspicious changes suggest recurrent lymphoma. 2. Stable increased density mid left mesentery. No enlarged lymphadenopathy is evident.
== END | disposition home or self-care (01) ==
LOC: RADPROMAIN 12:36
PROVIDERS: ATTEND Internal Medicine Hematology & Oncology
DX: C83.38 Diffuse large B-cell lymphoma, lymph nodes of multiple sites (principal); R93.5 Abnormal findings on diagnostic imaging of other abdominal regions, including retroperitoneum; R94.4 Abnormal results of kidney function studies
CPT/HCPCS: 82565; 84520; 71250; 74176; J1642

== ENCOUNTER → 2018-04-21 | Outpatient (CLI) | payer MEDICARE ==
--- NOTE | 2018-04-21 15:55 | CT ---
EXAMINATION TYPE: CT ChestAbdPelvis wo con DATE OF EXAM: 04/21/2018 COMPARISON: 12/24/17 HISTORY: Follow up for lymphoma. CT DLP: 685.7mGycm Unenhanced CT of the Chest, Abdomen and Pelvis Unenhanced CT of the chest ,abdomen and pelvis is performed. The lack of intravenous contrast limits evaluation of the solid and hollow viscera. Oral contrast: Yes CT Chest: LUNGS: Hyperinflation compatible with COPD. The lungs are clear and free of infiltrate or atelectasis . No pulmonary nodule or mass is detected. No pleural effusion or CT evidence of interstitial lung disease. MEDIASTINUM: Thoracic aorta is of normal caliber. The heart is not enlarged. No evidence for media stinal mass or adenopathy. HILAR STRUCTURES: No evidence for mass. No hilar adenopathy is appreciated. OTHER: No significant abnormality. CONTRAST CT ABDOMEN AND PELVIS: LIVER/GB: No calcified gallstones. No space occupying hepatic lesion. Biliary tree is of normal ca liber. PANCREAS: No inflammation. No distinct mass. SPLEEN: No splenic enlargement. No lesion seen. ADRENALS: No nodule. No thickening. KIDNEYS/BLADDER: No hydronephrosis. No nephrolithiasis. No distinct solid renal mass. Renal cystic changes noted. BOWEL: Normal appendix. Normal bowel caliber. No inflammation. GENITAL ORGANS: No gross abnormality. LYMPH NODES: No greater than 1cm abdominal or pelvic lymph nodes are appreciated. AORTA: No significant abnormality. OSSEOUS STRUCTURES: No significant abnormality is seen. OTHER: Haziness within the small bowel mesentery persists although has improved. IMPRESSION: 1. No evidence for adenopathy at this time. 2.Haziness within the small bowel mesentery persists although has improved.
== END | disposition home or self-care (01) ==
LOC: RADPROMAIN 12:45
PROVIDERS: ATTEND Internal Medicine Hematology & Oncology
DX: C83.38 Diffuse large B-cell lymphoma, lymph nodes of multiple sites (principal)
CPT/HCPCS: 71250; 74176

== ENCOUNTER → 2018-08-17 | Outpatient (CLI) | payer MEDICARE ==
--- NOTE | 2018-08-17 15:41 | CT ---
EXAMINATION TYPE: CT ChestAbdPelvis wo con DATE OF EXAM: 08/17/2018 COMPARISON: 04/21/2018 HISTORY: lymphoma/observe mets. CT DLP: 1349 mGycm. Automated Exposure Control for Dose Reduction was Utilized. TECHNIQUE: CT scan of the thorax, abdomen and pelvis is performed without IV contrast. FINDINGS: LUNGS: The lungs are grossly clear, there is no concerning parenchymal mass or nodule identified. T here is no pleural effusion or pneumothorax seen. The tracheobronchial tree is patent. Hyperinflatio n compatible COPD. Subsegmental changes at both lung bases are again noted. Findings are stable. MEDIASTINUM: There are no greater than 1 cm hilar or mediastinal lymph nodes. No pericardial effusi on is seen. Coronary artery calcification noted. Mediport catheter noted. OTHER: No additional significant abnormality is seen. LIVER/GB: No significant abnormality is appreciated. PANCREAS: No significant abnormality is seen. SPLEEN: No significant abnormality is seen. ADRENALS: Stable 1 cm nodular thickening of left adrenal gland.. KIDNEYS: Hypodense lesions involving the kidneys are stable with evidence of cortical loss suggestive of chronic medical renal disease. Findings likely related to simple renal cysts. Nonobstructing 3 mm left renal calculus. Smaller subcentimeter suspected cyst on the left does contain a hyperdense rim which may represent hemorrhagic component.. BOWEL: No significant abnormality is seen. LYMPH NODES: No greater than 1cm abdominal or pelvic lymph nodes are appreciated. OSSEOUS STRUCTURES: Multilevel degenerative disc disease and facet arthropathy with diffuse osteopeni a.. OTHER: Haziness within the small bowel mesentery persists. Hiatal hernia noted. . IMPRESSION: 1. No evidence of pathologic adenopathy. 2. Mild haziness to the mesentery is nonspecific demonstrates very mild changes may been the basis of mild mesenteritis or panniculitis.
== END | disposition home or self-care (01) ==
LOC: RADPROMAIN 12:36
PROVIDERS: ATTEND Internal Medicine Hematology & Oncology
DX: K66.8 Other specified disorders of peritoneum (principal); C83.38 Diffuse large B-cell lymphoma, lymph nodes of multiple sites
CPT/HCPCS: 82565; 84520; 71250; 74176; 36415; J1642

== ENCOUNTER → 2018-12-18 | Outpatient (CLI) | payer MEDICARE ==
--- NOTE | 2018-12-18 13:00 | CT ---
EXAMINATION TYPE: CT ChestAbdPelvis wo con DATE OF EXAM: 12/18/2018 COMPARISON: 08/17/2018, 04/21/2018 and 12/24/2017 HISTORY: Lymphoma, originating in neck. CT DLP: 750.7 mGycm. Automated Exposure Control for Dose Reduction was Utilized. TECHNIQUE: CT scan of the thorax, abdomen and pelvis is performed without IV contrast. FINDINGS: LUNGS: Chronic left basilar airspace disease and left hemidiaphragm elevation are seen and therefore airspace disease likely represents atelectasis with secondary volume loss. The lungs are grossly german r, there is no concerning parenchymal mass or nodule identified. There is no pleural effusion or pn eumothorax seen. The tracheobronchial tree is patent. MEDIASTINUM: There are no greater than 1 cm hilar or mediastinal lymph nodes. No pericardial effusi on is seen. OTHER: Right-sided Mediport terminates in the cavoatrial junction. LIVER/GB: No significant abnormality is appreciated. Gallbladder appears surgically absent or signifi cantly contracted. PANCREAS: Moderate pancreatic parenchymal atrophy is seen. No ductal dilatation. SPLEEN: No significant abnormality is seen. ADRENALS: No significant abnormality is seen. KIDNEYS: Multiple bilateral renal cysts are seen the largest on the left measuring up to 7.2 cm. Nono bstructing left renal calculus measures 3 mm. More complex hyperdense left renal lesion measures a pr oximally 7 mm and is too small to accurately characterize but seen on the prior exams with layering c alculi on the prior. No new hydronephrosis. BOWEL: There is a small hiatal hernia with distal esophageal diverticulum that is contrast-filled. No dilated large or small bowel. Scattered colonic diverticula are noted without pericolonic fat strand ing. GENITAL ORGANS: Uterus appears surgically absent. LYMPH NODES: No greater than 1cm abdominal or pelvic lymph nodes are appreciated. Few scattered nonen larged mesenteric lymph nodes are seen. Mesenteric haziness is again noted and may relate to pannicul itis although continued surveillance is recommended as this can be seen in low-grade lymphomas. OSSEOUS STRUCTURES: There is diffuse osseous demineralization and mild multilevel degenerative disc d isease. Multilevel compression deformities of the L2, T11 and T12 vertebral bodies are unchanged. OTHER: Extensive calcific atheromatous changes of the abdominal aorta and its branches. Abdominal aor ta is of normal course and caliber. IMPRESSION: 1. Stable mild mesenteric haziness that can be seen in mesenteric panniculitis however this finding c an also be seen in low-grade lymphomas and continued surveillance is recommended. No progression. 2. No new adenopathy within the chest, abdomen, or pelvis. 3. Small hiatal hernia with contrast-filled distal esophageal diverticulum. 4. Chronic left basilar airspace disease representing atelectasis as there is chronic left hemidiaphr agm elevation.
== END | disposition home or self-care (01) ==
LOC: RADCTMAIN 11:00
PROVIDERS: ATTEND Internal Medicine Hematology & Oncology
DX: K22.5 Diverticulum of esophagus, acquired (principal); K44.9 Diaphragmatic hernia without obstruction or gangrene; J98.11 Atelectasis; Q79.1 Other congenital malformations of diaphragm; C83.38 Diffuse large B-cell lymphoma, lymph nodes of multiple sites
CPT/HCPCS: 71250; 74176

== ENCOUNTER → 2019-06-24 | Outpatient (CLI) | payer MEDICARE ==
--- NOTE | 2019-06-24 14:36 | CT ---
EXAMINATION TYPE: CT ChestAbdPelvis wo con DATE OF EXAM: 06/24/2019 COMPARISON: December 18, 2018 HISTORY: Lymphoma. CT DLP: 878.7mGycm Unenhanced CT of the Chest, Abdomen and Pelvis Unenhanced CT of the chest ,abdomen and pelvis is performed. The lack of intravenous contrast limits evaluation of the solid and hollow viscera. There is no patient refused contrast administration. Oral contrast: Yes CT Chest: LUNGS: The lungs are clear and free of infiltrate. Left basilar atelectasis or parenchymal scarring. No pulmonary nodule or mass is detected. No pleural effusion or CT evidence of interstitial lung dis ease. MEDIASTINUM: Thoracic aorta is of normal caliber. The heart is not enlarged. No evidence for media stinal mass or adenopathy. Moderate fixed hiatal hernia. HILAR STRUCTURES: No evidence for mass. No hilar adenopathy is appreciated. OTHER: No significant abnormality. CONTRAST CT ABDOMEN AND PELVIS: LIVER/GB: No calcified gallstones. No space occupying hepatic lesion. Biliary tree is of normal ca liber. PANCREAS: No inflammation. No distinct mass. SPLEEN: No splenic enlargement. No lesion seen. ADRENALS: No nodule. No thickening. KIDNEYS/BLADDER: No hydronephrosis. No nephrolithiasis. Stable renal cystic changes. Renal parenchy mal thinning noted. BOWEL: Normal appendix. Normal bowel caliber. No inflammation. GENITAL ORGANS: No gross abnormality. LYMPH NODES: No greater than 1cm abdominal or pelvic lymph nodes are appreciated. Persistent mild meehan ziness within the small bowel mesentery unchanged from prior study. AORTA: No significant abnormality. OSSEOUS STRUCTURES: No significant abnormality is seen. OTHER: No significant additional abnormality is seen. IMPRESSION: 1. Stable mild mesenteric haziness. Radiculitis versus low-grade lymphoma. No significant change appreciated. 2. No new adenopathy within the chest abdomen or pelvis.
== END | disposition home or self-care (01) ==
LOC: RADCTMAIN 12:31
PROVIDERS: ATTEND Internal Medicine Hematology & Oncology
DX: Z03.89 Encounter for observation for other suspected diseases and conditions ruled out (principal); C83.38 Diffuse large B-cell lymphoma, lymph nodes of multiple sites; R93.5 Abnormal findings on diagnostic imaging of other abdominal regions, including retroperitoneum
CPT/HCPCS: 71250; 74176

== ENCOUNTER → 2019-12-23 | Outpatient (CLI) | payer MEDICARE ==
--- NOTE | 2019-12-23 13:49 | CT ---
EXAMINATION TYPE: CT ChestAbdPelvis wo con DATE OF EXAM: 12/23/2019 COMPARISON: Prior CT June 24, 2019 and older CTs back through 2017. Prior PET/CT July 20, 2016 . HISTORY: Follow up lymphoma CT DLP: 808.7 mGycm. Automated Exposure Control for Dose Reduction was Utilized. TECHNIQUE: CT scan of the thorax, abdomen and pelvis is performed with oral and without IV contrast. FINDINGS: LUNGS: Slightly elevated left hemidiaphragm redemonstrated with left greater than right bibasilar carmencita ear scarring and/or atelectasis. No suspicious nodules or masses. No pleural effusion or pneumothorax . MEDIASTINUM: There are no new greater than 1 cm hilar or mediastinal lymph nodes. No cardiomegaly o r pericardial effusion is seen. Stable subcentimeter left thyroid nodule axial image 5 posteriorly. M ild to moderate coronary artery calcification redemonstrated which is noted marker for underlying cor onary artery disease. OTHER: Stable right internal jugular Mediport catheter. LIVER/GB: Gallbladder not seen and presumed surgically absent similar to prior. PANCREAS: Moderate generalized fat replaced atrophy redemonstrated. SPLEEN: No significant abnormality is seen. ADRENALS: Slight thickening to left adrenal gland consistent with lipid rich hyperplasia stable. KIDNEYS: Cortical thinning in both kidneys. Simple thin-walled cysts bilaterally of varying size and shape redemonstrated. Some calcifications in the left kidney are again seen. No hydronephrosis presen t. BOWEL: Stable small to moderate size hiatal hernia. Diverticula in the sigmoid colon. No suspicious s mall and large bowel dilatation. GENITAL ORGANS: Uterus is surgically absent or markedly atrophic. LYMPH NODES: No new greater than 1cm abdominal or pelvic lymph nodes are appreciated. A few prominent but subcentimeter lymph nodes in the left abdominal mesentery with mild fat stranding remain present . OSSEOUS STRUCTURES: Slight scoliotic curvature with moderate disc space narrowing L4-L5 level. Demine ralization with mild compression fracture deformities chronic in T11 and T12 along with L2 levels. OTHER: Moderate calcified plaque of the aorta extends into branch vessels. IMPRESSION: No new suspicious adenopathy to suggest active neoplastic recurrence. No significant tash nge from most recent CT. Areas of neoplasm identified on PET/CT July 20, 2016 show no recurrent jeanne picious adenopathy.
== END | disposition home or self-care (01) ==
LOC: RADCTMAIN 10:23
PROVIDERS: ATTEND Internal Medicine Hematology & Oncology
DX: C83.38 Diffuse large B-cell lymphoma, lymph nodes of multiple sites (principal)
CPT/HCPCS: 71250; 74176

== ENCOUNTER → 2020-06-29 | Outpatient (CLI) | payer MEDICARE ==
--- NOTE | 2020-06-30 18:34 | CT ---
EXAMINATION TYPE: CT ChestAbdPelvis wo con DATE OF EXAM: 06/29/2020 INDICATION: B cell lymphoma. COMPARISON: 12/23/2019 CT DLP: 810.3 mGycm CONTRAST: Performed with Oral Contrast TECHNIQUE: Axial images at 5 mm thick sections. Reconstructed images in the coronal plane. Delayed images through the kidneys. FINDINGS: CT CHEST: Portion of the thyroid visualized is normal. No suspicious lung nodules or focal infiltrates are present. No enlarged mediastinal or hilar adenopathy is evident. The ascending aorta diameter at the level of the main pulmonary artery is 3.7 cm. The main pulmonary artery diameter at the bifurcation is 3.1 cm. Coronary artery calcification is present. CT ABDOMEN: Liver: There may be some biliary dilatation present. Spleen: Normal Pancreas: Atrophic Adrenal glands: The adrenal glands are normal. Gallbladder: Not clearly identified. No surgical clips are evident. This may be decompressed. Kidneys: No masses are evident. No hydronephrosis is present. Multiple cysts or on the bilateral ki dneys. On the posterior lateral right kidney this measures 2.7 cm in 18 Hounsfield units . On the blackman perior pole left kidney this measures 5.8 cm and 4 Hounsfield units. On the posterior left mid kidney this measures 4 cm and 15 Hounsfield units and on the posterior lateral left kidney 2.9 cm and 9 Toni nsfield units there is a nonobstructing renal stone in the superior medial left kidney measuring 0.5 cm. There is a high density are within the renal cortex of the superior left kidney measuring 0.9 cm. Delayed images were obtained through the kidneys, which remain unremarkable. Aorta: Vascular calcification is within the aorta. Inferior vena cava: Normal. CT PELVIS: There may be some thickening of the antrum wall of the stomach. Loops of bowel within the abdomen and pelvis are normal. Diverticulosis without acute diverticulitis is within the sigmoid colon There are loops of bowel which are incompletely distended or lack oral contrast limiting their evaluation. Appendix: Not identified. No suspicious inflammatory changes or dilated tubular structures are eviden t. Urinary bladder: Normal. Genitourinary structures: Uterus is absent. Adnexal regions are unremarkable. Osseous structures: No suspicious lytic or sclerotic lesions. Lymphadenopathy: No suspicious adenopathy is within the chest abdomen or pelvis. IMPRESSIONS: 1. No suspicious abnormality to suggest recurrent lymphoma. 2. Diverticulosis. 3. Mild thickening of the antral wall. Consider antritis within the differential. #4 nonobstructing r enal stone left kidney. 5. Bilateral renal stones. 6.Stable hyperdense area within the superior pole left kidney
== END | disposition home or self-care (01) ==
LOC: RADCTMAIN 10:08
PROVIDERS: ATTEND Internal Medicine Hematology & Oncology
DX: C83.38 Diffuse large B-cell lymphoma, lymph nodes of multiple sites (principal); K57.30 Diverticulosis of large intestine without perforation or abscess without bleeding; N20.0 Calculus of kidney; K31.89 Other diseases of stomach and duodenum
CPT/HCPCS: 71250; 74176; Q9967

== ENCOUNTER → 2020-12-28 | Outpatient (CLI) | payer MEDICARE ==
--- NOTE | 2020-12-29 13:03 | CT ---
EXAMINATION TYPE: CT ChestAbdPelvis wo con DATE OF EXAM: 12/28/2020 INDICATION: F/U for lymphoma COMPARISON: 06/29/2020 CT DLP: 761.5 mGycm CONTRAST: Performed with Oral Contrast. No intravenous contrast. TECHNIQUE: Axial images at 5 mm thick sections. Reconstructed images in the coronal plane. Delayed images through the kidneys. FINDINGS: CT CHEST: Portion of the thyroid visualized is normal. No suspicious lung nodules or focal infiltrates are present. No enlarged mediastinal or hilar adenopathy is evident. The ascending aorta diameter at the level of the main pulmonary artery is 3.5 cm. The main pulmonary artery diameter at the bifurcation is 3.1 cm. There is some mild coronary artery calcification prese nt. CT ABDOMEN: Moderate size hiatal hernia is present. Liver: Normal Spleen: Normal Pancreas: Normal Adrenal glands: The adrenal glands are normal. Gallbladder: Not identified Kidneys: No masses are evident. No hydronephrosis is present. There is a large 6.7 cm cyst superior pole left kidney. The posterior lateral superior right renal cyst measures 3.1 cm and 18 Hounsfield units. There are posterior and posterior lateral mid left renal cyst measuring 3.01 4.2 cm. There are nonobstructing renal stones within the cortex of the left kidney could been a 0.7 cm and a 0.3 cm ca lcification. No hydronephrosis is evident. Some mild right hydroureter is present. Punctate density m ay be present within the mid right ureter, series 3 image 74. This just above the transition to a nor mal caliber ureter. Various tiny renal stone is not excluded Aorta: Vascular calcification is within the aorta. Inferior vena cava: Normal. CT PELVIS: Loops of bowel within the abdomen and pelvis are normal. Few diverticuli within the sigmoid colon There are loops of bowel which are incompletely distended or lack oral contrast limiting their evalua tion. Appendix: Not identified. No suspicious dilated tubular structure or inflammatory change is evident. Urinary bladder: Normal. Genitourinary structures: Uterus and ovaries are not identified. Osseous structures: No suspicious spiculated or lobular masses are evident. Degenerative changes at s acroiliac joints. Facet hypertrophy is within the lower lumbar spine. Adenopathy: No enlarged mediastinal or hilar adenopathy is evident. No suspicious periaortic or retro caval adenopathy is evident. Obturator canal and iliac chain regions appear normal. No enlarged ingui nal adenopathy is evident. IMPRESSIONS: 1. No suspicious changes to suggest recurrent lymphoma. 2. There may be some minimal prominence of the right ureter with a possible punctate density within t he midportion near transition. Ureteral stone is not excluded. 3. Moderate hiatal hernia. 4. Renal cysts
== END ==
LOC: RADCTMAIN 14:48
PROVIDERS: ATTEND Internal Medicine Hematology & Oncology
DX: N28.1 Cyst of kidney, acquired (principal); K44.9 Diaphragmatic hernia without obstruction or gangrene
CPT/HCPCS: 71250; 74176

== ENCOUNTER → 2021-06-29 | Outpatient (CLI) | payer MEDICARE ==
--- NOTE | 2021-06-29 16:29 | CT ---
EXAMINATION TYPE: CT ChestAbdPelvis wo con DATE OF EXAM: 06/29/2021 INDICATION: lymphoma COMPARISON: 12/28/2020 CT DLP: 1422 mGycm CONTRAST: Performed with Oral Contrast TECHNIQUE: Axial images at 5 mm thick sections. Reconstructed images in the coronal plane. Delayed images through the kidneys. FINDINGS: CT CHEST: Portion of the thyroid visualized is normal. No suspicious lung nodules or focal infiltrates are present. No enlarged mediastinal or hilar adenopathy is evident. The ascending aorta diameter at the level of the main pulmonary artery is 3.0 cm. The main pulmonary artery diameter at the bifurcation is 3.0 cm. Coronary artery calcification is present. A small to moderate hiatal hernia is present. CT ABDOMEN: No retrocrural adenopathy is evident. No periaortic or retrocaval adenopathy is evident. Portal adenopathy is not identified. Liver: Normal Spleen: Normal Pancreas: Normal Adrenal glands: The adrenal glands are normal. Gallbladder: Not identified. Correlate with surgical history. Kidneys: No masses are evident. No hydronephrosis is present. There is a 7.7 cm cyst on the superio r pole left kidney measuring -2 Hounsfield units. There is a 3.2 cm cyst on the posterior lateral sup erior pole right kidney measuring 6 Hounsfield units. Calcification within the cortex of the left kid huyen is just adjacent to the large cyst. There is additional cyst laterally measuring 3.1 cm and 0 Toni nsfield units and posteriorly measuring 4.8 cm and 7 Hounsfield units. Aorta: Vascular calcification is within the aorta. Inferior vena cava: Normal. CT PELVIS: No obturator canal or iliac chain adenopathy is evident. No inguinal adenopathy. Loops of bowel within the abdomen and pelvis are normal. There may be some thickening at the hilar c hannel. Mild diverticulosis without acute diverticulitis is within the sigmoid colon There are loops of bowel which are incompletely distended or lack oral contrast limiting their evaluation. Appendix: Not identified. No dilated tubular structure or inflammatory changes evident. Urinary bladder: Decompressed with limited evaluation. Genitourinary structures: Uterus and ovaries are not identified. Osseous structures: No suspicious lytic or sclerotic lesions. IMPRESSIONS: 1. No suspicious adenopathy within the chest abdomen or pelvis. 2. Diverticulosis without acute diverticulitis. 3. Multiple bilateral renal cysts. 4. Small to moderate sized hiatal hernia
== END | disposition home or self-care (01) ==
LOC: RADPROMAIN 12:41
PROVIDERS: ATTEND Internal Medicine Hematology & Oncology
DX: C85.90 Non-Hodgkin lymphoma, unspecified, unspecified site (principal); K44.9 Diaphragmatic hernia without obstruction or gangrene; I25.10 Atherosclerotic heart disease of native coronary artery without angina pectoris; K57.30 Diverticulosis of large intestine without perforation or abscess without bleeding; N28.1 Cyst of kidney, acquired
CPT/HCPCS: 71250; 74176

== ENCOUNTER → 2021-12-21 | Outpatient (CLI) | payer MEDICARE ==
--- NOTE | 2021-12-21 13:52 | CT ---
EXAMINATION TYPE: CT ChestAbdPelvis wo con DATE OF EXAM: 12/21/2021 COMPARISON: CT dated 06/29/2021 HISTORY: Lymphoma CT DLP: 856.8 mGycm. Automated Exposure Control for Dose Reduction was Utilized. TECHNIQUE: Multiplanar CT scan of the thorax, abdomen and pelvis is performed without IV contrast. FINDINGS: LUNGS: Chronic left lower lobe pulmonary atelectasis with loss of volume, stable. Right posterior low er lobar subpleural reticulations and minimal fibrotic changes with minimal atelectasis, appreciated previously. Grossly unremarkable remainder of the lungs. Patent central airways. No pleural effusion MEDIASTINUM: Left atrial enlargement, dilated pulmonary trunk and arterial/coronary atherosclerotic c alcifications. Minimal pericardial fluid. No pathologically enlarged lymph nodes in the chest. OTHER: Right Port-A-Cath with the tip is seen at the atriocaval junction. Diffuse osteopenia. Persist ent upper endplate depression of T11 and T12 vertebral bodies, stable. No aggressive bone lesion. LIVER/GB: No definite hepatic focal lesion. Previous cholecystectomy. PANCREAS: Markedly atrophic with fat infiltration. SPLEEN: No significant abnormality is seen. ADRENALS: No significant abnormality is seen. KIDNEYS: Multiple variable sized bilateral renal cysts measuring up to 11.8 cm at the upper pole of t he left kidney. Adjacent tiny calcification/stone measuring up to 3 mm is again noted. Partially calc ified cyst is also seen at the upper pole of the left kidney measuring 13 mm compared to 12 mm previo usly. Solid small renal lesion cannot be excluded by this nonenhanced CT scan. No hydroureter or hydr onephrosis. The urinary bladder is not distended. BOWEL: Sliding hiatal hernia containing the gastric fundus, otherwise unremarkable remainder of the s tomach, duodenum and small bowel. Uncomplicated colonic diverticulosis most evident seen in the sigmo id colon. GENITAL ORGANS: Previous hysterectomy. No adnexal mass. Possible pelvic adhesions.. LYMPH NODES: No greater than 1cm abdominal or pelvic lymph nodes are appreciated. OSSEOUS STRUCTURES: Osteopenia. Stable upper endplate depression of L2 and L3 vertebral bodies. No ag gressive bone lesion. Degenerative changes at L4-5 level. OTHER: Scattered arterial atherosclerotic calcifications. No sizable ascites.. IMPRESSION: No evidence of splenic enlargement or pathologically enlarged thoracic, abdominal or pelvic lymph nod es. No signs suggestive of lymphoma recurrence. Incidental findings as described above.
== END | disposition home or self-care (01) ==
LOC: RADCTMAIN 09:16
PROVIDERS: ATTEND Internal Medicine Hematology & Oncology
DX: C83.38 Diffuse large B-cell lymphoma, lymph nodes of multiple sites (principal)
CPT/HCPCS: 71250; 74176